=== PATIENT | male | born 1955 | race African-American/Black ===

== ENCOUNTER 2017-05-29 11:42 | Inpatient (IN) | payer OTHER ==
[~2017-05-29] VITALS: Ht 175.3 cm; Wt 88.3 kg
[2017-05-29] VITALS (8 sets, daily range): BP systolic 98–156; BP diastolic 52–78; PULSE 93–141; RESP 16–26; TEMP 98–102.6; O2SAT 95–98
[~2017-05-29 11:42] MED LIST: GLUCTAB PO; HYDR12.57 PO; LEVO.025 PO; LISI-360 PO; TRAM50TA PO
[2017-05-29] MEDS ORDERED: SODIUM CHLOR 0.9% 1000 ML INJ 1,000 ML IV ONE ×2 (12:02→14:00)
[2017-05-29] MEDS ORDERED: METF-382 PO (12:04)
[2017-05-29] MEDS ORDERED: LISI10TA3 PO (12:04)
[2017-05-29] MEDS ORDERED: GABA300C5 PO (12:04)
[2017-05-29] MEDS ORDERED: AZIT500T2 PO (12:04)
[2017-05-29] MEDS ORDERED: NAPR500T2 PO (12:04)
[2017-05-29] MEDS ORDERED: HYDR12.56 PO (12:04)
[2017-05-29] MEDS ORDERED: OSEL75 PO (12:04)
[2017-05-29] MEDS ORDERED: ACETAMINOPHEN 325 MG TAB PO ONE ×2 (12:15→14:45)
--- NOTE | 2017-05-29 12:38 | RADRPT ---
EXAM DATE/TIME: 05/29/2017 12:12 [facility] COMPARISON: No previous studies available for comparison. INDICATIONS : Fever,short of breath for 1 week MEDICAL HISTORY : diabetic SURGICAL HISTORY : None. ENCOUNTER: Initial ACUITY: 1 week PAIN SCORE: 0/10 LOCATION: Bilateral chest FINDINGS: A single view of the chest demonstrates the lungs to be symmetrically aerated without evidence of mas s, infiltrate or effusion. The cardiomediastinal contours are unremarkable. Spurs are seen in the th oracic spine. CONCLUSION: No acute disease. Ghassan Pearson MD on May 29, 2017 at 12:35 Board Certified Radiologist. This report was verified electronically.
[2017-05-29 12:46] LABS: AUTOMATED NEUTROPHIL # 6.6 TH/MM3 (1.8-7.7); BASOPHIL % 0.2 % (0.0-2.0); EOSINOPHIL % 0.1 % (0.0-4.0); HEMATOCRIT 36.8 % (39.0-51.0); HEMOGLOBIN 12.6 GM/DL (13.0-17.0); LYMPH % 3.7 % (9.0-44.0); LYMPHOCYTE # 0.3 TH/MM3 (1.0-4.8); MEAN CELL VOLUME 95.1 FL (80.0-100.0); MEAN CORPUSCULAR HEMOGLOBIN 32.6 PG (27.0-34.0); MEAN CORPUSCULAR HGB CONC 34.3 % (32.0-36.0); MEAN PLATELET VOLUME 10.4 FL (7.0-11.0); MONOCYTE # 0.1 TH/MM3 (0-0.9); PLATELET COUNT 143 TH/MM3 (150-450); RED BLOOD COUNT 3.87 MIL/MM3 (4.50-5.90); RED CELL DISTRIBUTION WIDTH 13.7 % (11.6-17.2); WHITE BLOOD COUNT 6.9 TH/MM3 (4.0-11.0)
[2017-05-29 12:54] LABS: LACTIC ACID SEPSIS PROTOCOL 3.8 mmol/L (0.4-2.0)
--- NOTE | 2017-05-29 13:02 | RADRPT ---
EXAM DATE/TIME: 05/29/2017 12:44 [facility] COMPARISON: No previous studies available for comparison. INDICATIONS : Altered mental status. RADIATION DOSE: 36.25 CTDIvol (mGy) MEDICAL HISTORY : Hypertension. Diabetes mellitus type 2. SURGICAL HISTORY : None. ENCOUNTER: Initial ACUITY: 1 day PAIN SCALE: 0/10 LOCATION: cranial TECHNIQUE: Multiple contiguous axial images were obtained of the head. Using automated exposure control and adj ustment of the mA and/or kV according to patient size, radiation dose was kept as low as reasonably a chievable to obtain optimal diagnostic quality images. DICOM format image data is available electro nically for review and comparison. FINDINGS: CEREBRUM: The ventricles and cortical sulci are widened. No evidence of midline shift, mass lesion, hemorrhage or acute infarction. No extra-axial fluid collections are seen. POSTERIOR FOSSA: The cerebellum and brainstem are intact. The 4th ventricle is midline. The cerebellopontine angle i s unremarkable. EXTRACRANIAL: The visualized portion of the orbits is intact. SKULL: The calvaria is intact. No evidence of skull fracture. CONCLUSION: 1. No acute intracranial abnormality is seen. 2. Age-related atrophy. Ghassan Pearson MD on May 29, 2017 at 12:59 Board Certified Radiologist. This report was verified electronically.
[2017-05-29 13:03] LABS: INTERNATIONAL NORMALIZED RATIO 1.3 RATIO; PROTHROMBIN TIME - PATIENT 13.4 SEC (9.8-11.6)
[2017-05-29 13:05] LABS: ALBUMIN 2.2 GM/DL (3.4-5.0); AST (GOT) 49 U/L (15-37); BICARBONATE 22.8 MEQ/L (21.0-32.0); BLOOD UREA NITROGEN 35 MG/DL (7-18); CALCIUM 10.1 MG/DL (8.5-10.1); CHLORIDE 93 MEQ/L (98-107); CREATININE 1.56 MG/DL (0.60-1.30); GLOMERULAR FILTRATION RATE 55 ML/MIN (>89); SODIUM (NA) 128 MEQ/L (136-145)
[2017-05-29 13:19] LABS: ALKALINE PHOSPHATASE 219 U/L (45-117); ALT (GPT) 24 U/L (12-78); TOTAL BILIRUBIN ADULT 1.3 MG/DL (0.2-1.0); TOTAL PROTEIN 8.6 GM/DL (6.4-8.2); TROPONIN I LESS THAN 0.02 NG/ML (0.02-0.05)
[2017-05-29] MEDS ORDERED: CEFEPIME INJ 1,000 MG in SODIUM CHLORIDE 0.9% INJ 100 ML IV ONE (13:30)
[2017-05-29] MEDS ORDERED: VANCOMYCIN INJ 1,000 MG in SODIUM CHLOR 0.9% 250 ML INJ 250 ML IV ONE (13:30)
[2017-05-29 13:47] LABS: GLUCOSE,RANDOM 526 MG/DL (74-106)
[2017-05-29 14:45] LABS: BACTERIA, URINE RARE /hpf; BILIRUBIN, URINE NEG (NEG); BLOOD, URINE NEG (NEG); GLUCOSE,URINE 1000 mg/dL (NEG); KETONE, URINE 10 mg/dL (NEG); NITRITE,URINE NEG (NEG); URINE COLOR YELLOW (YELLW/STRAW); URINE LEUKOCYTE ESTERASE TRACE (NEG)
[2017-05-29] MEDS ORDERED: KETOROLAC TROMETHAMINE 30 MG/ML (IVP) VIAL IV PUSH ONE (14:45)
[2017-05-29] MEDS ORDERED: INSULIN HUMAN REGULAR 1,000 UNITS/10 ML VIAL IV PUSH ONE (15:00)
--- NOTE | 2017-05-29 15:16 | PD ---
HPI Chief Complaint: Fever Time Seen by Provider: 12:02 Travel History International Travel<30 days: No Contact w/Intl Traveler<30days: No Traveled to known affect area: No History of Present Illness HPI Patient is a 61 year old male who is brought in by EMS due to altered mental status. Per EMS, patient was diagnosed with the flu and was started on Tamiflu and azithromycin by his primary physician earlier in the week. They state that the has been trying to get him to go back to the doctor or to the emergency department for a few days, but he kept refusing until today when he could not refuse. Patient is a diabetic, it is unclear if he has been taking any of his medications. He provides no history. [facility] Past Medical History Diabetes: Yes Patient Takes Glucophage: No Diminished Hearing: No Hypertension: Yes Tetanus Vaccination: > 5 Years Influenza Vaccination: Yes Past Surgical History Surgical History: No Previous Surgery Social History Alcohol Use: Yes (2 BEERS DAILY) Tobacco Use: No Substance Use: No Allergies-Medications (Allergen,Severity, Reaction): Coded Allergies: aspirin (Unverified Allergy, Unknown, 05/29/17) Reported Meds & Prescriptions Reported Meds & Active Scripts Active Reported Tamiflu (Oseltamivir Phosphate) 75 Mg Cap 75 Mg PO BID Azithromycin 500 Mg Tab 500 Mg PO DAILY Gabapentin 300 Mg Cap 300 Mg PO HS Lisinopril 10 Mg Tab 10 Mg PO DAILY Hydrochlorothiazide 12.5 Mg Tab 12.5 Mg PO BID Naproxen 500 Mg Tab 500 Mg PO BID Metformin ER (Metformin HCl) 1,000 Mg Natalia 1,000 Mg PO BID With evening meal Review of Systems ROS Limitations: Clinical Condition, Altered Mental Status Physical Exam Narrative GENERAL: Awake and alert, but not answering questions. SKIN: Focused skin assessment warm/dry. No wounds or signs of infection. HEAD: Atraumatic. Normocephalic. EYES: Pupils equal and round. No scleral icterus. No injection or drainage. ENT: Thrush present on the tongue. Mucous membranes are dry. NECK: Trachea midline. No JVD. CARDIOVASCULAR: Tachycardia. No murmur appreciated. RESPIRATORY: No accessory muscle use. Clear to auscultation. Breath sounds equal bilaterally. GASTROINTESTINAL: Abdomen soft, non-tender, nondistended. MUSCULOSKELETAL: No obvious deformities. No clubbing. No cyanosis. No edema. NEUROLOGICAL: Awake and alert. No obvious cranial nerve deficits. Motor grossly within normal limits. Data Data Last Documented VS Vital Signs Date Time Temp Pulse Resp B/P (MAP) Pulse Ox O2 Delivery O2 Flow Rate FiO2 05/29/17 14:27 101.2 125 22 102/72 (82) 98 Room Air Orders Orders Sepsis Workup Initiated (05/29/17 ) Electrocardiogram (05/29/17 12:02) Complete Blood Count With Diff (05/29/17 12:02) Comprehensive Metabolic Panel (05/29/17 12:02) Prothrombin Time / Inr (Pt) (05/29/17 12:02) Act Partial Throm Time (Ptt) (05/29/17 12:02) Lactic Acid Sepsis Protocol (05/29/17 12:02) Lipase (05/29/17 12:02) Troponin I (05/29/17 12:02) Urinalysis - C+S If Indicated (05/29/17 12:02) Blood Culture (05/29/17 12:02) Chest, Single Ap (05/29/17 12:02) Blood Glucose (05/29/17 12:02) Ecg Monitoring (05/29/17 12:02) Iv Access Insert/Monitor (05/29/17 12:02) Cath For Specimen (05/29/17 12:02) Oximetry (05/29/17 12:02) Oxygen Administration (05/29/17 12:02) Acetaminophen (Tylenol) (05/29/17 12:15) Ct Brain W/O Iv Contrast(Rout) (05/29/17 12:02) Sodium Chlor 0.9% 1000 Ml Inj (Ns 1000 M (05/29/17 12:02) Beta Hydroxybutyrate (Acetone) (05/29/17 12:02) Blood Gas Venous (Vbg) (05/29/17 12:02) Cefepime Inj (Maxipime Inj) (05/29/17 13:30) Vancomycin Inj (Vancomycin Inj) (05/29/17 13:30) Sodium Chlor 0.9% 1000 Ml Inj (Ns 1000 M (05/29/17 14:00) Acetaminophen (Tylenol) (05/29/17 14:45) Ketorolac Inj (Toradol Inj) (05/29/17 14:45) Urinary Catheter Insert/Apply (05/29/17 14:41) Insulin Human Regular Inj (Novolin R Inj (05/29/17 15:00) Urine Culture (05/29/17 14:30) Lactic Acid Sepsis Protocol (05/29/17 14:56) Labs Laboratory Tests Test 05/29/17 12:15 05/29/17 12:20 05/29/17 14:30 05/29/17 14:40 Blood Gas Puncture Site LINE Blood Gas Patient Temperature 98.6 Venous Blood pH 7.40 Venous Blood Partial Pressure CO2 39 mmHg Venous Blood Partial Pressure O2 26 mmHg Venous Blood HCO3 24 mmol/L Venous Blood Oxygen Saturation 41 % Venous Blood Oxygen Content 6.7 Vol % Venous Blood Base Excess -0.4 mmol/L Blood Gas Inspired Oxygen 21 % White Blood Count 6.9 TH/MM3 Red Blood Count 3.87 MIL/MM3 Hemoglobin 12.6 GM/DL Hematocrit 36.8 % Mean Corpuscular Volume 95.1 FL Mean Corpuscular Hemoglobin 32.6 PG Mean Corpuscular Hemoglobin Concent 34.3 % Red Cell Distribution Width 13.7 % Platelet Count 143 TH/MM3 Mean Platelet Volume 10.4 FL Neutrophils (%) (Auto) 95.0 % Lymphocytes (%) (Auto) 3.7 % Monocytes (%) (Auto) 1.0 % Eosinophils (%) (Auto) 0.1 % Basophils (%) (Auto) 0.2 % Neutrophils # (Auto) 6.6 TH/MM3 Lymphocytes # (Auto) 0.3 TH/MM3 Monocytes # (Auto) 0.1 TH/MM3 Eosinophils # (Auto) 0.0 TH/MM3 Basophils # (Auto) 0.0 TH/MM3 CBC Comment DIFF FINAL Differential Comment Prothrombin Time 13.4 SEC Prothromb Time International Ratio 1.3 RATIO Activated Partial Thromboplast Time 23.6 SEC Blood Urea Nitrogen 35 MG/DL Creatinine 1.56 MG/DL Random Glucose 526 MG/DL Total Protein 8.6 GM/DL Albumin 2.2 GM/DL Calcium Level 10.1 MG/DL Alkaline Phosphatase 219 U/L Aspartate Amino Transf (AST/SGOT) 49 U/L Alanine Aminotransferase (ALT/SGPT) 24 U/L Total Bilirubin 1.3 MG/DL Sodium Level 128 MEQ/L Potassium Level 5.7 MEQ/L Chloride Level 93 MEQ/L Carbon Dioxide Level 22.8 MEQ/L Anion Gap 12 MEQ/L Estimat Glomerular Filtration Rate 55 ML/MIN Lactic Acid Level 3.8 mmol/L Troponin I LESS THAN 0.02 NG/ML Lipase 134 U/L B-Hydroxybutyrate 3.33 MMOL/L Urine Color YELLOW Urine Turbidity CLEAR Urine pH 5.0 Urine Specific Gill 1.021 Urine Protein NEG mg/dL Urine Glucose (UA) 1000 mg/dL Urine Ketones 10 mg/dL Urine Occult Blood NEG Urine Nitrite NEG Urine Bilirubin NEG Urine Urobilinogen LESS THAN 2.0 MG/DL Urine Leukocyte Esterase TRACE Urine WBC 9 /hpf Urine Bacteria RARE /hpf Microscopic Urinalysis Comment CATH-CULTURE IND MDM Medical Decision Making Medical Screen Exam Complete: Yes Emergency Medical Condition: Yes Medical Record Reviewed: Yes Interpretation(s) ECG shows sinus tachycardia at a rate of 139, no ST elevation or depression, normal intervals Differential Diagnosis Sepsis versus pneumonia versus UTI versus DKA versus HHS Narrative Course Patient is a 61-year-old male who comes in by EMS due to altered mental status. IV established, labs sent. Patient given IV fluids. 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 CT head performed shows no acute abnormalities. Chest x-ray shows no acute abnormalities. Last [address] 05/29/17 1202 Signed Impressions: Service Date/Time: Monday, May 29, 2017 12:44 - CONCLUSION: 1. No acute intracranial abnormality is seen. 2. Age-related atrophy. Ghassan Pearson MD Chest X-Ray 05/29/17 1202 Signed Impressions: Service Date/Time: Monday, May 29, 2017 12:12 - CONCLUSION: No acute disease. Ghassan Pearson MD Patient covered broadly with cefepime and vancomycin. Labs concerning for a blood glucose of 526. Lactic acid is 3.8. Urinalysis is positive for bacteria. Patient did improve with fluids, his tachycardia improved and he became a little more alert. He is complaining of pain to his tongue due to the thrush and does admit he has not been taking his medications. He will be admitted for further management. Diagnosis Primary Impression: Sepsis Qualified Codes: A41.9 - Sepsis, unspecified organism Additional Impressions: Altered mental status Qualified Codes: R41.0 - Disorientation, unspecified Hyperglycemia Thrush Admitting Information Admitting Physician Requests: Admit Faby Garcia MD May 29, 2017 15:16
[2017-05-29] MEDS ORDERED: MORPHINE SULFATE 2 MG/ML INJ IV PUSH ONE (15:45)
[2017-05-29] MEDS ORDERED: MORPHINE SULFATE 2 MG/ML INJ IV PUSH PRN (18:15)
[2017-05-29] MEDS ORDERED: LACTULOSE SYRUP 20 GM/30 ML CUP PO PRN (18:15)
[2017-05-29] MEDS ORDERED: GLUCAGON 1 MG/ML VIAL OTHER PRN (18:15)
[2017-05-29] MEDS ORDERED: ACETAMINOPHEN 325 MG TAB PO PRN ×2 (18:15)
[2017-05-29] MEDS ORDERED: oxyCODONE/ACETAMINOPHEN 10 MG/325 MG TAB PO PRN (18:15)
[2017-05-29] MEDS ORDERED: RESP: ALBUTEROL 2.5 MG/IPRATROPIUM 0.5 MG NEB (PRN) NEB (18:15)
[2017-05-29] MEDS ORDERED: METOCLOPRAMIDE HCL 10 MG/2 ML VIAL IV PUSH PRN (18:15)
[2017-05-29] MEDS ORDERED: BISACODYL 10 MG SUPP RECTAL PRN (18:15)
[2017-05-29] MEDS ORDERED: cloNIDine HCL 0.1 MG TAB PO PRN (18:15)
[2017-05-29] MEDS ORDERED: SODIUM CHLORIDE 0.9% FLUSH 10 ML FLUSH IV FLUSH PRN (18:15)
[2017-05-29] MEDS ORDERED: MAGNESIUM HYDROXIDE SUSP 30 ML CUP PO PRN (18:15)
[2017-05-29] MEDS ORDERED: oxyCODONE/ACETAMINOPHEN 5 MG/325 MG TAB PO PRN (18:15)
[2017-05-29] MEDS ORDERED: DEXTROSE 50% IN WATER 50 ML VIAL(D50) IV PUSH PRN (18:15)
[2017-05-29] MEDS ORDERED: ONDANSETRON HCL 4 MG/2 ML VIAL IVP PRN (18:15)
[2017-05-29] MEDS ORDERED: NALOXONE HCL 0.4 MG/ML AMP IV PUSH PRN (18:15)
[2017-05-29] MEDS ORDERED: ZOLPIDEM TARTRATE 5 MG TAB PO PRN (18:15)
[2017-05-29] MEDS ORDERED: SENNOSIDES 8.6 MG TAB PO PRN (18:15)
[2017-05-29] MEDS ORDERED: Vancomycin Consult Pharmacy 1 EA OTHER SCH (18:15)
--- NOTE | 2017-05-29 18:27 | HHI.HP ---
[facility] Service [facility] Hospitalists Primary Care Physician Non-Staff Admission Diagnosis Sepsis, AMS, Hyperglycemia Diagnoses: Chief Complaint: Fevers Travel History International Travel<30 Days: No Contact w/Intl Traveler <30 Da: No Traveled to Known Affected Are: No Sepsis Criteria SIRS Criteria (2 or more): Temp > 100.9 or < 96.8 Sepsis Criteria (SIRS+source): Infect source susp/known (flu/pneumonia) Severe Sepsis (+one): Lactate >2 Criteria Outcome: Meets sepsis criteria History of Present Illness Patient is a 61-year-old gentleman who is brought in by EMS due to altered mental status. Patient per EMS was diagnosed with the flu last week and was started on Tamiflu and azithromycin by his primary care physician last week. have been trying to get him to come back to the doctor or to the emergency department for the past few days. He is using until today when he could not refuse when he became altered. Patient is a diabetic. He is not very compliant with medications since he had an elevated blood sugar over 500 Patient will be admitted. Continued on cefepime and vancomycin and Tamiflu. Continue on his home medications will consult nutrition and resident care aid. We'll start patient on insulin and Levemir and will educate him on this issue We'll continue on Diflucan for the oral thrush Review of Systems ROS Limitations: Altered Mental Status Constitutional: COMPLAINS OF: Fatigue, Fever, Chills, DENIES: Diaphoretic episodes, Weight gain, Weight loss, Dizziness, Change in appetite Endocrine: DENIES: Heat/cold intolerance, Polydipsia, Polyuria, Polyphagia Eyes: DENIES: Blurred vision, Diplopia, Eye inflammation, Eye pain, Vision loss , Photosensitivity Ears, nose, mouth, throat: COMPLAINS OF: Oral lesions, DENIES: Tinnitus, Hearing loss, Vertigo, Nasal discharge, Throat pain, Hoarseness Respiratory: COMPLAINS OF: Cough, Sputum production, Shortness of breath, DENIES: Apneas, Snoring, Wheezing, Hemoptysis Cardiovascular: DENIES: Chest pain, Palpitations, Syncope, Dyspnea on Exertion Gastrointestinal: DENIES: Abdominal pain, Black stools, Bloody stools, Constipation Musculoskeletal: COMPLAINS OF: Muscle aches, DENIES: Joint pain, Stiffness, Joint Swelling, Back pain, Neck pain Integumentary: DENIES: Abnormal pigmentation, Nail changes, Pruritus, Rash Hematologic/lymphatic: DENIES: Bruising, Lymphadenopathy Immunologic/allergic: DENIES: Eczema, Urticaria Neurologic: DENIES: Abnormal gait, Headache, Localized weakness, Paresthesias, Seizures, Speech Problems Psychiatric: COMPLAINS OF: Confusion, DENIES: Anxiety, Mood changes, Depression , Hallucinations, Agitation, Suicidal Ideation, Homicidal Ideation Except as stated in HPI: all other systems reviewed are Neg Past Family Social History Past Medical History Diabetes mellitus Uncontrolled diabetes mellitus Malignant medical noncompliance Hypertension Diabetic neuropathy Past Surgical History Denies at this time limited due to him being slightly altered Reported Medications Reported Meds & Active Scripts Active Reported Tamiflu (Oseltamivir Phosphate) 75 Mg Cap 75 Mg PO BID Azithromycin 500 Mg Tab 500 Mg PO DAILY Gabapentin 300 Mg Cap 300 Mg PO HS Lisinopril 10 Mg Tab 10 Mg PO DAILY Hydrochlorothiazide 12.5 Mg Tab 12.5 Mg PO BID Naproxen 500 Mg Tab 500 Mg PO BID Metformin ER (Metformin HCl) 1,000 Mg Natalia 1,000 Mg PO BID With evening meal Allergies: Coded Allergies: aspirin (Unverified Allergy, Unknown, 05/29/17) Active Ordered Medications Current Medications Acetaminophen (Tylenol) 650 mg ONCE ONCE PO Last administered on 05/29/17at 12: 34; Start 05/29/17 at 12:15; Stop 05/29/17 at 12:16; Status DC Sodium Chloride 1,000 ml @ 1,000 mls/hr Q1H ONCE IV Last administered on at 12:34; Start 05/29/17 at 12:02; Stop 05/29/17 at 13:01; Status DC Cefepime HCl 1000 mg/Sodium Chloride 100 ml @ 200 mls/hr ONCE ONCE IV Last administered on 05/29/17at 14:32; Start 05/29/17 at 13:30; Stop 05/29/17 at 13:59 ; Status DC Vancomycin HCl 1000 mg/Sodium Chloride 250 ml @ 250 mls/hr ONCE ONCE IV Last administered on 05/29/17at 15:12; Start 05/29/17 at 13:30; Stop 05/29/17 at 14:29 ; Status DC Sodium Chloride 1,000 ml @ 999 mls/hr BOLUS ONCE IV Last administered on 05/29at 14:32; Start 05/29/17 at 14:00; Stop 05/29/17 at 15:00; Status DC Acetaminophen (Tylenol) 650 mg ONCE ONCE PO ; Start 05/29/17 at 14:45; Stop at 14:45; Status DC Ketorolac Tromethamine (Toradol Inj) 30 mg ONCE ONCE IV PUSH Last administered on 05/29/17at 15:12; Start 05/29/17 at 14:45; Stop 05/29/17 at 14:46 ; Status DC Insulin Human Regular (NovoLIN R INJ) 10 units ONCE ONCE IV PUSH Last administered on 05/29/17at 15:12; Start 05/29/17 at 15:00; Stop 05/29/17 at 15:01 ; Status DC Morphine Sulfate (Morphine Inj) 2 mg ONCE ONCE IV PUSH Last administered on at 17:00; Start 05/29/17 at 15:45; Stop 05/29/17 at 15:46; Status DC Azithromycin (Zithromax) 500 mg DAILY PO ; Start 05/29/17 at 18:15; Status UNV Gabapentin (Neurontin) 300 mg HS PO ; Start 05/29/17 at 21:00; Status UNV Hydrochlorothiazide (Microzide) 12.5 mg BID PO ; Start 05/29/17 at 21:00; Status UNV Lisinopril (Prinivil) 10 mg DAILY PO ; Start 05/29/17 at 18:15 Naproxen (Naprosyn) 500 mg BID PO ; Start 05/29/17 at 21:00 Oseltamivir Phosphate (Tamiflu) 75 mg BID PO ; Start 05/29/17 at 21:00 Metformin HCl (Glucophage) 1,000 mg BID PO ; Start 05/29/17 at 21:00 Dextrose (D50w (Vial) Inj) 50 ml UNSCH PRN IV PUSH HYPOGLYCEMIA-SEE COMMENTS; Start 05/29/17 at 18:15 Glucagon (Glucagon Inj) 1 mg UNSCH PRN OTHER HYPOGLYCEMIA-SEE COMMENTS; Start 05/29/17 at 18:15 Insulin Aspart (NovoLOG SUPPLEMENTAL SCALE) 1 ACHS SLIDING SCALE SQ ; Start at 21:00 Clonidine (Catapres) 0.1 mg Q4H PRN PO SBP>160, DBP>90; Start 05/29/17 at 18:15 Sodium Chloride 1,000 ml @ 100 mls/hr Q10H IV ; Start 05/29/17 at 18:10; Status UNV Sodium Chloride (NS Flush) 2 ml UNSCH PRN IV FLUSH FLUSH AFTER USING IV ACCESS ; Start 05/29/17 at 18:15; Status UNV Sodium Chloride (NS Flush) 2 ml BID IV FLUSH ; Start 05/29/17 at 21:00; Status UNV Acetaminophen (Tylenol) 650 mg Q4H PRN PO TEMP > 100.4; Start 05/29/17 at 18:15 ; Status UNV Ondansetron HCl (Zofran Inj) 4 mg Q6H PRN IVP NAUSEA OR VOMITING; Start at 18:15; Status UNV Metoclopramide HCl (Reglan Inj) 5 mg Q6H PRN IV PUSH NAUSEA OR VOMITING; Start 05/29/17 at 18:15; Status UNV Zolpidem Tartrate (Ambien) 5 mg HS PRN PO INSOMNIA; Start 05/29/17 at 18:15; Status UNV Enoxaparin Sodium (Lovenox Inj) 40 mg Q24H SQ ; Start 05/29/17 at 18:15; Status UNV Acetaminophen (Tylenol) 650 mg Q6H PRN PO PAIN SCALE 1 TO 2; Start 05/29/17 at 18:15; Status UNV Oxycodone/ Acetaminophen (Percocet 5-325 Mg) 1 tab Q6H PRN PO PAIN SCALE 3 TO 5; Start 05/29/17 at 18:15; Status UNV Oxycodone/ Acetaminophen (Percocet 10-325 Mg) 1 tab Q6H PRN PO PAIN SCALE 6 TO 10; Start 05/29/17 at 18:15; Status UNV Morphine Sulfate (Morphine Inj) 2 mg Q3H PRN IV PUSH Pain 3-5; if unable to take PO; Start 05/29/17 at 18:15; Status UNV Morphine Sulfate (Morphine Inj) 4 mg Q3H PRN IV PUSH Pain 6-10;if unable to take PO; Start 05/29/17 at 18:15; Status UNV Naloxone HCl (Narcan Inj) 0.4 mg UNSCH PRN IV PUSH SEE LABEL COMMENTS; Start at 18:15; Status UNV Senna/Docusate Sodium (Alma Delia-Colace) 1 tab BID PO ; Start 05/29/17 at 21:00; Status UNV Magnesium Hydroxide (Milk Of Magnesia Liq) 30 ml Q12H PRN PO Mild constipation ; Start 05/29/17 at 18:15; Status UNV Sennosides (Senokot) 17.2 mg Q12H PRN PO Moderate constipation; Start 05/29/17 at 18:15; Status UNV Bisacodyl (Dulcolax Supp) 10 mg DAILY PRN RECTAL SEVERE CONSITIPATION; Start at 18:15; Status UNV Lactulose (Lactulose Liq) 30 ml DAILY PRN PO SEVERE CONSITIPATION; Start at 18:15; Status UNV Fluconazole (Diflucan) 200 mg DAILY PO ; Start 05/29/17 at 18:15; Status UNV Nystatin (Mycostatin Liq) 5 ml QID SWISH-SWAL ; Start 05/29/17 at 21:00; Status UNV Insulin Detemir (Levemir Inj) 10 units BID SQ ; Start 05/29/17 at 21:00; Status UNV Family History Suspect hypertension and diabetes in the family is not a good historian at this time Social History Denies tobacco positive alcohol beer daily Denies any illicits Physical Exam Vital Signs Vital Signs Date Time Temp Pulse Resp B/P (MAP) Pulse Ox O2 Delivery O2 Flow Rate FiO2 05/29/17 16:55 108 26 102/58 (73) 98 Room Air 05/29/17 16:11 20 05/29/17 15:38 99.6 118 20 156/78 (104) 98 Room Air 05/29/17 14:27 101.2 125 22 102/72 (82) 98 Room Air 05/29/17 13:21 130 16 129/60 (83) 98 Room Air 05/29/17 11:53 102.6 141 16 131/59 (83) 96 Physical Exam GENERAL: This is a well-nourished, well-developed patient, in no apparent distress. Somewhat altered at the time of the exam SKIN: No rashes, ecchymoses or lesions. Cool and dry. HEAD: Atraumatic. Normocephalic. No temporal or scalp tenderness. EYES: Pupils equal round and reactive. Extraocular motions intact. No scleral icterus. No injection or drainage. ENT: Nose without bleeding, purulent drainage or septal hematoma. Throat without erythema, tonsillar hypertrophy or exudate. Uvula midline. Airway patent. Poor dentition oral thrush on tongue NECK: Trachea midline. No JVD or lymphadenopathy. Supple, nontender, no meningeal signs. CARDIOVASCULAR: Regular rate and rhythm without murmurs, gallops, or rubs. S1 and S2 no S3 or S4 RESPIRATORY: Clear to auscultation. Breath sounds equal bilaterally. No wheezes , rales, Few scattered rhonchi GASTROINTESTINAL: Abdomen soft, non-tender, nondistended. No hepato-splenomegaly , or palpable masses. No guarding. Obese MUSCULOSKELETAL: Extremities without clubbing, cyanosis, +1 lower extremity edema. No joint tenderness, effusion, or edema noted. No calf tenderness. Negative Homans sign bilaterally. NEUROLOGICAL: Awake and alert. Cranial nerves II through XII intact. Motor and sensory grossly within normal limits. Five out of 5 muscle strength in all muscle groups. Normal speech. Insight and judgment is limited Mood and behavior somewhat appropriate Laboratory Laboratory Tests Test 05/29/17 12:15 05/29/17 12:20 05/29/17 14:30 05/29/17 14:40 Blood Gas Puncture Site LINE Blood Gas Patient Temperature 98.6 Venous Blood pH 7.40 Venous Blood Partial Pressure CO2 39 Venous Blood Partial Pressure O2 26 Venous Blood HCO3 24 Venous Blood Oxygen Saturation 41 Venous Blood Oxygen Content 6.7 Venous Blood Base Excess -0.4 Blood Gas Inspired Oxygen 21 White Blood Count 6.9 Red Blood Count 3.87 Hemoglobin 12.6 Hematocrit 36.8 Mean Corpuscular Volume 95.1 Mean Corpuscular Hemoglobin 32.6 Mean Corpuscular Hemoglobin Concent 34.3 Red Cell Distribution Width 13.7 Platelet Count 143 Mean Platelet Volume 10.4 Neutrophils (%) (Auto) 95.0 Lymphocytes (%) (Auto) 3.7 Monocytes (%) (Auto) 1.0 Eosinophils (%) (Auto) 0.1 Basophils (%) (Auto) 0.2 Neutrophils # (Auto) 6.6 Lymphocytes # (Auto) 0.3 Monocytes # (Auto) 0.1 Eosinophils # (Auto) 0.0 Basophils # (Auto) 0.0 CBC Comment DIFF FINAL Differential Comment Prothrombin Time 13.4 Prothromb Time International Ratio 1.3 Activated Partial Thromboplast Time 23.6 Blood Urea Nitrogen 35 Creatinine 1.56 Random Glucose 526 Total Protein 8.6 Albumin 2.2 Calcium Level 10.1 Alkaline Phosphatase 219 Aspartate Amino Transf (AST/SGOT) 49 Alanine Aminotransferase (ALT/SGPT) 24 Total Bilirubin 1.3 Sodium Level 128 Potassium Level 5.7 Chloride Level 93 Carbon Dioxide Level 22.8 Anion Gap 12 Estimat Glomerular Filtration Rate 55 Lactic Acid Level 3.8 2.1 Troponin I LESS THAN 0.02 Lipase 134 B-Hydroxybutyrate 3.33 Urine Color YELLOW Urine Turbidity CLEAR Urine pH 5.0 Urine Specific [place] 1.021 Urine Protein NEG Urine Glucose (UA) 1000 Urine Ketones 10 Urine Occult Blood NEG Urine Nitrite NEG Urine Bilirubin NEG Urine Urobilinogen LESS THAN 2.0 Urine Leukocyte Esterase TRACE Urine WBC 9 Urine Bacteria RARE Microscopic Urinalysis Comment CATH-CULTURE IND Date/Time Source Procedure Growth Status 05/29/17 12:20 Blood Peripheral Aerobic Blood Culture Pending Received 05/29/17 12:20 Blood Peripheral Anaerobic Blood Culture Pending Received 05/29/17 14:30 Urine Catheterized Urine Urine Culture Pending Received Result Diagram: 05/29/17 1220 05/29/17 1220 Imaging Last Impressions Head CT 05/29/17 1202 Signed Impressions: Service Date/Time: Monday, May 29, 2017 12:44 - CONCLUSION: 1. No acute intracranial abnormality is seen. 2. Age-related atrophy. Ghassan Pearson MD Chest X-Ray 05/29/17 1202 Signed Impressions: Service Date/Time: Monday, May 29, 2017 12:12 - CONCLUSION: No acute disease. Ghassan Pearson MD Caprini VTE Risk Assessment Caprini VTE Risk Assessment: Mod/High Risk (score >= 2) Caprini Risk Assessment Model Point Value = 1 Point Value = 2 Point Value = 3 Point Value = 5 Age 41-60 Minor surgery BMI > 25 kg/m2 Swollen legs Varicose veins or History of unexplained or recurrent spontaneous Oral contraceptives or hormone replacement Sepsis (< 1 month) Serious lung disease, including pneumonia (< 1 month) Abnormal pulmonary function Acute myocardial infarction Congestive heart failure (< 1 month) History of inflammatory bowel disease Medical patient at bed rest Age 61-74 Arthroscopic surgery Major open surgery (> 45 min) Laparoscopic surgery (> 45 min) Malignancy Confined to bed (> 72 hours) Immobilizing plaster cast Central venous access Age >= 75 History of VTE Family history of VTE Factor V Leiden Prothrombin 00120A Lupus anticoagulant Anticardiolipin antibodies Elevated serum homocysteine Heparin-induced thrombocytopenia Other congenital or acquired thrombophilia Stroke (< 1 month) Elective arthroplasty Hip, pelvis, or leg fracture Acute spinal cord injury (< 1 month) Prophylaxis Regimen Total Risk Factor Score Risk Level Prophylaxis Regimen 0-1 Low Early ambulation 2 Moderate Order ONE of the following: *Sequential Compression Device (SCD) *Heparin 5000 units SQ BID 3-4 Higher Order ONE of the following medications: *Heparin 5000 units SQ TID *Enoxaparin/Lovenox 40 mg SQ daily (WT < 150 kg, CrCl > 30 mL/min) *Enoxaparin/Lovenox 30 mg SQ daily (WT < 150 kg, CrCl > 10-29 mL/min) *Enoxaparin/Lovenox 30 mg SQ BID (WT < 150 kg, CrCl > 30 mL/min) AND/OR *Sequential Compression Device (SCD) 5 or more Highest Order ONE of the following medications: *Heparin 5000 units SQ TID (Preferred with Epidurals) *Enoxaparin/Lovenox 40 mg SQ daily (WT < 150 kg, CrCl > 30 mL/min) *Enoxaparin/Lovenox 30 mg SQ daily (WT < 150 kg, CrCl > 10-29 mL/min) *Enoxaparin/Lovenox 30 mg SQ BID (WT < 150 kg, CrCl > 30 mL/min) AND *Sequential Compression Device (SCD) Assessment and Plan Assessment and Plan Altered mental status suspect secondary to flu and pneumonia continue on antibiotics with cefepime and Vanco and Tamiflu Continue on DuoNeb some Mucinex and incentive spirometry Hypertension continue on home medications Hyperkalemia continue on- fluids recheck labs Uncontrolled diabetes with noncompliance with diabetic diet and medications We'll get a hemoglobin A1c and continue on Levemir and metformin Continue on IV fluids Diabetic education Nutrition education for diabetes Thrush continue on Diflucan and nystatin swish and swallow Fevers and altered mental status continue on antibiotics Deconditioning continue with physical therapy and occupational therapy GI prophylaxis and DVT prophylaxis see orders Code Status Full code Discussed Condition With RN and patient and ER physician Physician Certification 2 Midnight Certification Type: Admission for Inpatient Services Order for Inpatient Services The services are ordered in accordance with Medicare regulations or non- Medicare payer requirements, as applicable. In the case of services not specified as inpatient-only, they are appropriately provided as inpatient services in accordance with the 2-midnight benchmark. Estimated LOS (days): 2 days is the estimated time the patient will need to remain in the hospital, assuming treatment plan goals are met and no additional complications. Post-Hospital Plan: Not yet determined Olvin Mazariegos DO May 29, 2017 18:27
[2017-05-29] MEDS ORDERED: MORPHINE SULFATE 4 MG/ML INJ IV PUSH PRN (18:30)
[2017-05-29] MEDS ORDERED: VANCOMYCIN INJ 1,500 MG in SODIUM CHLORID 0.9% 500 ML INJ 500 ML IV ONE (18:45)
[2017-05-29] MEDS ORDERED: AZITHROMYCIN 250 MG TAB PO SCH (18:45)
[2017-05-29] MEDS: SODIUM CHLOR 0.9% 1000 ML INJ 1,000 ML IV SCH (21:48)
[2017-05-29] MEDS ORDERED: ENALAPRILAT 1.25 MG/ML VIAL IV PUSH PRN (23:15)
[2017-05-29] MEDS: ENOXAPARIN SODIUM 40 MG/0.4 ML SYRINGE SQ SCH (23:21)
[2017-05-29] MEDS: INSULIN DETEMIR 100 UNITS/ML VIAL SQ SCH (23:21)
[2017-05-29] MEDS: INSULIN ASPART SUPPLEMENTAL SCALE SQ SCH (23:21)
[2017-05-29] MEDS: guaiFENesin E.R. 600 MG TAB PO SCH (23:37)
[2017-05-29] MEDS: FOLIC ACID 1 MG TAB PO SCH (23:37)
[2017-05-29] MEDS: MULTIVITAMIN TAB PO SCH (23:37)
[2017-05-29] MEDS: THIAMINE HCL 100 MG TAB PO SCH (23:37)
[2017-05-29] MEDS: GABAPENTIN 300 MG CAP PO SCH (23:37)
[2017-05-29] MEDS: metFORMIN HCL 500 MG TAB PO SCH (23:38)
[2017-05-29] MEDS: NAPROXEN 500 MG TAB PO SCH (23:38)
[2017-05-29] MEDS: HYDROCHLOROTHIAZIDE 12.5 MG CAP PO SCH (23:38)
[2017-05-29] MEDS: FLUCONAZOLE 200 MG TAB PO SCH (23:38)
[2017-05-29] MEDS: SODIUM CHLORIDE 0.9% FLUSH 10 ML FLUSH IV FLUSH SCH (23:39)
[2017-05-29] MEDS: LISINOPRIL 10 MG TAB PO SCH (23:44)
[2017-05-29] MEDS: DOCUSATE SODIUM 50 MG/SENNA 8.6 MG TAB PO SCH (23:56)
[2017-05-29] MEDS: NYSTATIN SUSP 500,000 U/5 ML CUP SWISH-SWAL SCH (23:56)
[2017-05-30] VITALS (11 sets, daily range): BP systolic 100–148; BP diastolic 57–86; PULSE 80–110; RESP 18–20; TEMP 97.4–98.5; O2SAT 94–100
[2017-05-30] MEDS ORDERED: AZITHROMYCIN INJ 500 MG in SODIUM CHLOR 0.9% 250 ML INJ 250 ML IV SCH ×2
[2017-05-30] MEDS: OSELTAMIVIR PHOSPHATE 75 MG CAP PO SCH ×2 (00:16→09:15)
[2017-05-30 02:22] LABS: TROPONIN I LESS THAN 0.02 NG/ML (0.02-0.05)
[2017-05-30] MEDS: CEFEPIME INJ 2,000 MG in SODIUM CHLORIDE 0.9% INJ 100 ML IV SCH ×2 (03:36→15:00)
[2017-05-30] MEDS: SODIUM CHLOR 0.9% 1000 ML INJ 1,000 ML IV SCH ×2 (03:36→14:00)
[2017-05-30] MEDS: INSULIN ASPART SUPPLEMENTAL SCALE SQ SCH ×4 (08:00→20:49)
[2017-05-30] MEDS: DOCUSATE SODIUM 50 MG/SENNA 8.6 MG TAB PO SCH ×2 (09:00→20:51)
[2017-05-30] MEDS: SODIUM CHLORIDE 0.9% FLUSH 10 ML FLUSH IV FLUSH SCH ×2 (09:00→20:51)
--- NOTE | 2017-05-30 09:03 | HHI.PR ---
Subjective Remarks This is a pleasant 61 y/o Male who was brought in due to AMS, he was diagnosed with Influenza last week and received treatment with Tamiflu and Azithromycin, he has DM II, non compliant with his medicines Blood sugar on admission over 500, admitted and started on Cefepime and Vancomycin And Tamiflu, Diflucan for oral thrush, Seen in his bedroom, discussed with nurse Miss Alcazar, ID specialist consult due to Gram Negative Bacteremia. Objective Vital Signs Date Time Temp Pulse Resp B/P (MAP) Pulse Ox O2 Delivery O2 Flow Rate FiO2 05/30/17 07:52 100 05/30/17 04:00 97.8 92 20 117/68 (84) 96 05/30/17 04:00 21 05/30/17 03:58 80 05/30/17 00:06 98 05/30/17 00:00 97.7 93 18 114/70 (85) 96 05/30/17 00:00 98.3 94 18 113/66 (82) 94 05/29/17 22:06 93 05/29/17 19:10 98.0 98 18 98/52 (67) 95 05/29/17 18:30 101 22 103/59 (74) 95 Room Air 05/29/17 16:55 108 26 102/58 (73) 98 Room Air 05/29/17 16:11 20 05/29/17 15:38 99.6 118 20 156/78 (104) 98 Room Air 05/29/17 14:27 101.2 125 22 102/72 (82) 98 Room Air 05/29/17 13:21 130 16 129/60 (83) 98 Room Air 05/29/17 11:53 102.6 141 16 131/59 (83) 96 I/O 05/29/17 05/29/17 05/29/17 05/30/17 05/30/17 05/30/17 07:00 15:00 23:00 07:00 15:00 23:00 Intake Total 2350 ml 1329 ml Output Total 1600 ml Balance 2350 ml -271 ml Intake IV Total 2350 ml 1329 ml Output Urine Total 1600 ml Result Diagram: 05/29/17 1220 05/29/17 1220 Imaging Last Impressions Head CT 05/29/17 1202 Signed Impressions: Service Date/Time: Monday, May 29, 2017 12:44 - CONCLUSION: 1. No acute intracranial abnormality is seen. 2. Age-related atrophy. Ghassan Pearson MD Chest X-Ray 05/29/17 1202 Signed Impressions: Service Date/Time: Monday, May 29, 2017 12:12 - CONCLUSION: No acute disease. Ghassan Pearson MD Procedures None Other Results Laboratory Tests Test 05/29/17 12:15 05/29/17 12:20 05/29/17 14:30 05/29/17 14:40 Blood Gas Puncture Site LINE Blood Gas Patient Temperature 98.6 Venous Blood pH 7.40 Venous Blood Partial Pressure CO2 39 mmHg Venous Blood Partial Pressure O2 26 mmHg Venous Blood HCO3 24 mmol/L Venous Blood Oxygen Saturation 41 % Venous Blood Oxygen Content 6.7 Vol % Venous Blood Base Excess -0.4 mmol/L Blood Gas Inspired Oxygen 21 % White Blood Count 6.9 TH/MM3 Red Blood Count 3.87 MIL/MM3 Hemoglobin 12.6 GM/DL Hematocrit 36.8 % Mean Corpuscular Volume 95.1 FL Mean Corpuscular Hemoglobin 32.6 PG Mean Corpuscular Hemoglobin Concent 34.3 % Red Cell Distribution Width 13.7 % Platelet Count 143 TH/MM3 Mean Platelet Volume 10.4 FL Neutrophils (%) (Auto) 95.0 % Lymphocytes (%) (Auto) 3.7 % Monocytes (%) (Auto) 1.0 % Eosinophils (%) (Auto) 0.1 % Basophils (%) (Auto) 0.2 % Neutrophils # (Auto) 6.6 TH/MM3 Lymphocytes # (Auto) 0.3 TH/MM3 Monocytes # (Auto) 0.1 TH/MM3 Eosinophils # (Auto) 0.0 TH/MM3 Basophils # (Auto) 0.0 TH/MM3 CBC Comment DIFF FINAL Differential Comment Prothrombin Time 13.4 SEC Prothromb Time International Ratio 1.3 RATIO Activated Partial Thromboplast Time 23.6 SEC Blood Urea Nitrogen 35 MG/DL Creatinine 1.56 MG/DL Random Glucose 526 MG/DL Total Protein 8.6 GM/DL Albumin 2.2 GM/DL Calcium Level 10.1 MG/DL Alkaline Phosphatase 219 U/L Aspartate Amino Transf (AST/SGOT) 49 U/L Alanine Aminotransferase (ALT/SGPT) 24 U/L Total Bilirubin 1.3 MG/DL Sodium Level 128 MEQ/L Potassium Level 5.7 MEQ/L Chloride Level 93 MEQ/L Carbon Dioxide Level 22.8 MEQ/L Anion Gap 12 MEQ/L Estimat Glomerular Filtration Rate 55 ML/MIN Lipase 134 U/L B-Hydroxybutyrate 3.33 MMOL/L Urine Color YELLOW Urine Turbidity CLEAR Urine pH 5.0 Urine Specific [place] 1.021 Urine Protein NEG mg/dL Urine Glucose (UA) 1000 mg/dL Urine Ketones 10 mg/dL Urine Occult Blood NEG Urine Nitrite NEG Urine Bilirubin NEG Urine Urobilinogen LESS THAN 2.0 MG/DL Urine Leukocyte Esterase TRACE Urine WBC 9 /hpf Urine Bacteria RARE /hpf Microscopic Urinalysis Comment CATH-CULTURE IND Lactic Acid Level 2.1 mmol/L Test 05/30/17 00:20 Total Creatine Kinase 44 U/L Troponin I LESS THAN 0.02 NG/ML Objective Remarks GENERAL: No acute distress. SKIN: No rashes, ecchymoses or lesions. Cool and dry. HEAD: Atraumatic. Normocephalic. No temporal or scalp tenderness. EYES: Pupils equal round and reactive. Extraocular motions intact. No scleral icterus. No injection or drainage. ENT: Nose without bleeding, purulent drainage or septal hematoma. Throat without erythema, tonsillar hypertrophy or exudate. Uvula midline. Airway patent. Poor dentition oral thrush on tongue NECK: Trachea midline. No JVD or lymphadenopathy. Supple, nontender, no meningeal signs. CARDIOVASCULAR: Regular rate and rhythm without murmurs, gallops, or rubs. S1 and S2 no S3 or S4 RESPIRATORY: Clear to auscultation. Breath sounds equal bilaterally. No wheezes , rales, Few scattered rhonchi GASTROINTESTINAL: Abdomen soft, non-tender, nondistended. No hepato-splenomegaly , or palpable masses. No guarding. Obese MUSCULOSKELETAL: Extremities without clubbing, cyanosis, +1 lower extremity edema. NEUROLOGICAL: Awake and alert. Medications and IVs Current Medications Medications (Trade) Dose Ordered Sig/Jackie Route Start Time Stop Time Status Last Admin (Neurontin) 300 mg HS PO 05/29/17 21:00 05/29/17 23:37 (Microzide) 12.5 mg BID PO 05/29/17 21:00 05/29/17 23:38 (Prinivil) 10 mg DAILY PO 05/29/17 18:15 05/29/17 23:44 (Naprosyn) 500 mg BID PO 05/29/17 21:00 05/29/17 23:38 (Tamiflu) 75 mg BID PO 05/29/17 21:00 05/30/17 00:16 (Glucophage) 1,000 mg BID PO 05/29/17 21:00 05/29/17 23:38 (D50w (Vial) Inj) 50 ml UNSCH PRN IV PUSH 05/29/17 18:15 (Glucagon Inj) 1 mg UNSCH PRN OTHER 05/29/17 18:15 (NovoLOG SUPPLEMENTAL SCALE) 1 ACHS SLIDING SCALE SQ 05/29/17 21:00 05/29/17 23:21 (Catapres) 0.1 mg Q4H PRN PO 05/29/17 18:15 Sodium Chloride 1,000 ml @ 100 mls/hr Q10H IV 05/29/17 18:00 05/29/17 21:48 (NS Flush) 2 ml UNSCH PRN IV FLUSH 05/29/17 18:15 (NS Flush) 2 ml BID IV FLUSH 05/29/17 21:00 05/29/17 23:39 (Tylenol) 650 mg Q4H PRN PO 05/29/17 18:15 (Zofran Inj) 4 mg Q6H PRN IVP 05/29/17 18:15 (Reglan Inj) 5 mg Q6H PRN IV PUSH 05/29/17 18:15 (Ambien) 5 mg HS PRN PO 05/29/17 18:15 (Lovenox Inj) 40 mg Q24H SQ 05/29/17 20:00 05/29/17 23:21 (Tylenol) 650 mg Q6H PRN PO 05/29/17 18:15 (Percocet 5-325 Mg) 1 tab Q6H PRN PO 05/29/17 18:15 (Percocet 10-325 Mg) 1 tab Q6H PRN PO 05/29/17 18:15 (Morphine Inj) 2 mg Q3H PRN IV PUSH 05/29/17 18:15 (Morphine Inj) 4 mg Q3H PRN IV PUSH 05/29/17 18:30 (Narcan Inj) 0.4 mg UNSCH PRN IV PUSH 05/29/17 18:15 (Alma Delia-Colace) 1 tab BID PO 05/29/17 21:00 05/29/17 23:56 (Milk Of Magnesia Liq) 30 ml Q12H PRN PO 05/29/17 18:15 (Senokot) 17.2 mg Q12H PRN PO 05/29/17 18:15 (Dulcolax Supp) 10 mg DAILY PRN RECTAL 05/29/17 18:15 (Lactulose Liq) 30 ml DAILY PRN PO 05/29/17 18:15 (Diflucan) 200 mg DAILY PO 05/29/17 18:30 05/29/17 23:38 (Mycostatin Liq) 5 ml QID SWISH-SWAL 05/29/17 21:00 05/29/17 23:56 (Levemir Inj) 10 units BID SQ 05/29/17 21:00 05/29/17 23:21 Cefepime HCl 2000 mg/Sodium Chloride 100 ml @ 200 mls/hr Q12H IV 05/30/17 03:00 05/30/17 03:36 Pharmacy Profile Note 0 ml @ 0 mls/hr UNSCH OTHER 05/29/17 18:15 (Duoneb Neb) 1 ampule Q4HR NEB PRN NEB 05/29/17 18:15 (Mucinex Er) 600 mg BID PO 05/29/17 21:00 05/29/17 23:37 (Theragran) 1 tab DAILY PO 05/29/17 18:30 05/29/17 23:37 (Vitamin B1) 100 mg DAILY PO 05/29/17 18:30 05/29/17 23:37 (Folate) 1 mg DAILY PO 05/29/17 18:30 05/29/17 23:37 Azithromycin 500 mg/Sodium Chloride 250 ml @ 250 mls/hr Q24H IV 05/30/17 00:00 05/29/17 23:45 (Vasotec Inj) 1.25 mg Q6H PRN IV PUSH 05/29/17 23:15 Vancomycin HCl 2000 mg/Sodium Chloride 520 ml @ 250 mls/hr Q18H IV 05/30/17 21:00 Miscellaneous Information SPECIFIC LAB TO BE DRAWN:VANCOMYCIN TROUGH DATE TO... ONCE ONCE .XX 06/01/17 08:45 06/01/17 08:46 A/P Assessment and Plan Altered mental status suspect secondary to flu and pneumonia continue on antibiotics with cefepime and Vanco and Tamiflu Continue on DuoNeb some Mucinex and incentive spirometry Gram Negative Bacteremia on cefepime and Vancomycin ID specialist consult. Hypertension controlled. Hyperkalemia improved Uncontrolled diabetes type II with medical Non compliance, Hemoglobin A1C, IV fluids, Diabetic Education ongoing at this time Discontinued Metformin. Thrush continue on Diflucan and nystatin swish and swallow Fevers and altered mental Improved with IV fluids and antibiotics. Deconditioning continue with physical therapy and occupational therapy GI prophylaxis and DVT prophylaxis see orders Code Status Full code Discussed Condition With patient, Nurse Miss Alcazar and Diabetes Education. Discharge Planning Once cleared by ID specialist. Justin Patel MD May 30, 2017 09:03
[2017-05-30] MEDS: NAPROXEN 500 MG TAB PO SCH ×2 (09:15→20:50)
[2017-05-30] MEDS: THIAMINE HCL 100 MG TAB PO SCH (09:15)
[2017-05-30] MEDS: metFORMIN HCL 500 MG TAB PO SCH (09:15)
[2017-05-30] MEDS: LISINOPRIL 10 MG TAB PO SCH (09:16)
[2017-05-30] MEDS: guaiFENesin E.R. 600 MG TAB PO SCH ×2 (09:16→20:50)
[2017-05-30] MEDS: NYSTATIN SUSP 500,000 U/5 ML CUP SWISH-SWAL SCH ×4 (09:16→20:51)
[2017-05-30] MEDS: MULTIVITAMIN TAB PO SCH (09:16)
[2017-05-30] MEDS: HYDROCHLOROTHIAZIDE 12.5 MG CAP PO SCH ×2 (09:16→20:51)
[2017-05-30] MEDS: FLUCONAZOLE 200 MG TAB PO SCH (09:16)
[2017-05-30] MEDS: FOLIC ACID 1 MG TAB PO SCH (09:16)
[2017-05-30] MEDS: INSULIN DETEMIR 100 UNITS/ML VIAL SQ SCH ×2 (09:17→20:50)
[2017-05-30 10:05] LABS: BASOPHIL % 0.3 % (0.0-2.0); EOSINOPHIL # 0.1 TH/MM3 (0-0.4); EOSINOPHIL % 0.6 % (0.0-4.0); HEMATOCRIT 35.1 % (39.0-51.0); LYMPH % 8.1 % (9.0-44.0); LYMPHOCYTE # 0.8 TH/MM3 (1.0-4.8); MEAN CELL VOLUME 94.7 FL (80.0-100.0); MEAN CORPUSCULAR HEMOGLOBIN 32.4 PG (27.0-34.0); MEAN CORPUSCULAR HGB CONC 34.2 % (32.0-36.0); MEAN PLATELET VOLUME 10.1 FL (7.0-11.0); MONO % 2.8 % (0.0-8.0); MONOCYTE # 0.3 TH/MM3 (0-0.9); NEUT % 88.2 % (16.0-70.0); PLATELET COUNT 135 TH/MM3 (150-450); RED BLOOD COUNT 3.71 MIL/MM3 (4.50-5.90); RED CELL DISTRIBUTION WIDTH 13.8 % (11.6-17.2); WHITE BLOOD COUNT 10.2 TH/MM3 (4.0-11.0)
[2017-05-30 10:35] LABS: AST (GOT) 28 U/L (15-37); BICARBONATE 27.6 MEQ/L (21.0-32.0); BLOOD UREA NITROGEN 29 MG/DL (7-18); CALCIUM 9.2 MG/DL (8.5-10.1); CHLORIDE 105 MEQ/L (98-107); CREATININE 0.97 MG/DL (0.60-1.30); GLOMERULAR FILTRATION RATE 96 ML/MIN (>89); GLUCOSE,RANDOM 126 MG/DL (74-106); MAGNESIUM 1.8 MG/DL (1.5-2.5); SODIUM (NA) 140 MEQ/L (136-145)
[2017-05-30 10:41] LABS: ALKALINE PHOSPHATASE 135 U/L (45-117); ALT (GPT) 20 U/L (12-78); FREE T4 1.26 NG/DL (0.76-1.46); TOTAL BILIRUBIN ADULT 1.3 MG/DL (0.2-1.0); TOTAL PROTEIN 7.4 GM/DL (6.4-8.2); TROPONIN I LESS THAN 0.02 NG/ML (0.02-0.05)
--- NOTE | 2017-05-30 14:42 | PD.ID.CON ---
History of Present Illness Service Infectious disease Consult Requested By Dr. Mazariegos Reason for Consult Evaluation and management of gram-negative bacteremia Primary Care Physician Non-Staff Diagnoses: History of Present Illness Mr. 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 With this background patient presents to the emergency department due to altered mental status. Reportedly she was diagnosed with flu last week and was started on Tamiflu and azithromycin by his primary care physician. Patient's reports to me that she fell that he continued to decline despite these medications and she has been trying to bring him back to the hospital for the last few days. Patient reportedly refused until the day of admission when he became altered and was brought to the hospital. Patient's reports that he is not very compliant with his medications. Patient was found to have blood sugar in the 500s on admission. 61-year-old gentleman who is brought in by EMS due to altered mental status. Patient per EMS was diagnosed with the flu last week and was started on Tamiflu and azithromycin by his primary care physician last week. have been trying to get him to come back to the doctor or to the emergency department for the past few days. He is using until today when he could not refuse when he became altered. Patient is a diabetic. He is not very compliant with medications since he had an elevated blood sugar of 526. His A1c was 14. Patient was empirically started on cefepime, vancomycin and Tamiflu for suspected infectious process. Infectious disease is consulted for evaluation and management of gram-negative bacteremia based on blood cultures drawn on admission. Patient reports history of diarrhea, nausea vomiting few days prior to admission. Thinks he may have had the stomach flu in addition to the flu. Review of Systems ROS Limitations: Poor Historian Constitutional: COMPLAINS OF: Fatigue, Fever, Chills, DENIES: Diaphoretic episodes, Weight gain, Weight loss, Dizziness, Change in appetite, Night Sweats Endocrine: DENIES: Heat/cold intolerance, Polydipsia, Polyuria, Polyphagia Eyes: DENIES: Blurred vision, Diplopia, Eye inflammation, Eye pain, Vision loss , Photosensitivity, Double Vision Ears, nose, mouth, throat: DENIES: Tinnitus, Hearing loss, Vertigo, Nasal discharge, Oral lesions, Throat pain, Hoarseness, Ear Pain, Running Nose, Epistaxis, Sinus Pain, Toothache, Odynophagia Respiratory: DENIES: Apneas, Cough, Snoring, Wheezing, Hemoptysis, Sputum production, Shortness of breath Cardiovascular: DENIES: Chest pain, Palpitations, Syncope, Dyspnea on Exertion , PND, Lower Extremity Edema, Orthopnea, Claudication Gastrointestinal: DENIES: Abdominal pain, Black stools, Bloody stools, Constipation, Diarrhea, Nausea, Vomiting, Difficulty Swallowing, Anorexia Genitourinary: DENIES: Sexual dysfunction, Urinary frequency, Urinary incontinence, Urgency, Hematuria, Dysuria, Nocturia, Penile Discharge, Testicular Pain, Testicular Swelling Musculoskeletal: COMPLAINS OF: Joint pain, DENIES: Muscle aches, Stiffness, Joint Swelling, Back pain, Neck pain Integumentary: DENIES: Abnormal pigmentation, Nail changes, Pruritus, Rash Hematologic/lymphatic: DENIES: Bruising, Lymphadenopathy Immunologic/allergic: DENIES: Eczema, Urticaria Neurologic: DENIES: Abnormal gait, Headache, Localized weakness, Paresthesias, Seizures, Speech Problems, Tremor, Poor Balance Psychiatric: DENIES: Anxiety, Confusion, Mood changes, Depression, Hallucinations, Agitation, Suicidal Ideation, Homicidal Ideation, Delusions Except as stated in HPI: all other systems reviewed are Neg Past Family Social History Allergies: Coded Allergies: aspirin (Unverified Allergy, Unknown, 05/29/17) Past Medical History Diabetes mellitus Uncontrolled diabetes mellitus medical noncompliance Hypertension Diabetic neuropathy Right 3rd toe gangrene Chronic hip pain awaiting hip replacement in near future. Past Surgical History None per patient. Reported Medications Reported Meds & Active Scripts Active Reported Tamiflu (Oseltamivir Phosphate) 75 Mg Cap 75 Mg PO BID Azithromycin 500 Mg Tab 500 Mg PO DAILY Gabapentin 300 Mg Cap 300 Mg PO HS Lisinopril 10 Mg Tab 10 Mg PO DAILY Hydrochlorothiazide 12.5 Mg Tab 12.5 Mg PO BID Naproxen 500 Mg Tab 500 Mg PO BID Metformin ER (Metformin HCl) 1,000 Mg Natalia 1,000 Mg PO BID With evening meal Active Ordered Medications Current Medications Medications (Trade) Dose Ordered Sig/Jackie Route Start Time Stop Time Status Last Admin (Neurontin) 300 mg HS PO 05/29/17 21:00 05/29/17 23:37 (Microzide) 12.5 mg BID PO 05/29/17 21:00 05/30/17 09:16 (Prinivil) 10 mg DAILY PO 05/29/17 18:15 05/30/17 09:16 (Naprosyn) 500 mg BID PO 05/29/17 21:00 05/30/17 09:15 (Tamiflu) 75 mg BID PO 05/29/17 21:00 05/30/17 09:15 (D50w (Vial) Inj) 50 ml UNSCH PRN IV PUSH 05/29/17 18:15 (Glucagon Inj) 1 mg UNSCH PRN OTHER 05/29/17 18:15 (NovoLOG SUPPLEMENTAL SCALE) 1 ACHS SLIDING SCALE SQ 05/29/17 21:00 05/30/17 17:00 (Catapres) 0.1 mg Q4H PRN PO 05/29/17 18:15 Sodium Chloride 1,000 ml @ 100 mls/hr Q10H IV 05/29/17 18:00 05/30/17 14:00 (NS Flush) 2 ml UNSCH PRN IV FLUSH 05/29/17 18:15 (NS Flush) 2 ml BID IV FLUSH 05/29/17 21:00 05/30/17 09:00 (Tylenol) 650 mg Q4H PRN PO 05/29/17 18:15 (Zofran Inj) 4 mg Q6H PRN IVP 05/29/17 18:15 (Reglan Inj) 5 mg Q6H PRN IV PUSH 05/29/17 18:15 (Ambien) 5 mg HS PRN PO 05/29/17 18:15 (Lovenox Inj) 40 mg Q24H SQ 05/29/17 20:00 05/29/17 23:21 (Tylenol) 650 mg Q6H PRN PO 05/29/17 18:15 (Percocet 5-325 Mg) 1 tab Q6H PRN PO 05/29/17 18:15 (Percocet 10-325 Mg) 1 tab Q6H PRN PO 05/29/17 18:15 (Morphine Inj) 2 mg Q3H PRN IV PUSH 05/29/17 18:15 (Morphine Inj) 4 mg Q3H PRN IV PUSH 05/29/17 18:30 (Narcan Inj) 0.4 mg UNSCH PRN IV PUSH 05/29/17 18:15 (Alma Delia-Colace) 1 tab BID PO 05/29/17 21:00 05/29/17 23:56 (Milk Of Magnesia Liq) 30 ml Q12H PRN PO 05/29/17 18:15 (Senokot) 17.2 mg Q12H PRN PO 05/29/17 18:15 (Dulcolax Supp) 10 mg DAILY PRN RECTAL 05/29/17 18:15 (Lactulose Liq) 30 ml DAILY PRN PO 05/29/17 18:15 (Diflucan) 200 mg DAILY PO 05/29/17 18:30 05/30/17 09:16 (Mycostatin Liq) 5 ml QID SWISH-SWAL 05/29/17 21:00 05/30/17 18:17 (Levemir Inj) 10 units BID SQ 05/29/17 21:00 05/30/17 09:17 Cefepime HCl 2000 mg/Sodium Chloride 100 ml @ 200 mls/hr Q12H IV 05/30/17 03:00 05/30/17 15:00 Pharmacy Profile Note 0 ml @ 0 mls/hr UNSCH OTHER 05/29/17 18:15 (Duoneb Neb) 1 ampule Q4HR NEB PRN NEB 05/29/17 18:15 (Mucinex Er) 600 mg BID PO 05/29/17 21:00 05/30/17 09:16 (Theragran) 1 tab DAILY PO 05/29/17 18:30 05/30/17 09:16 (Vitamin B1) 100 mg DAILY PO 05/29/17 18:30 05/30/17 09:15 (Folate) 1 mg DAILY PO 05/29/17 18:30 05/30/17 09:16 Azithromycin 500 mg/Sodium Chloride 250 ml @ 250 mls/hr Q24H IV 05/30/17 00:00 05/29/17 23:45 (Vasotec Inj) 1.25 mg Q6H PRN IV PUSH 05/29/17 23:15 Vancomycin HCl 2000 mg/Sodium Chloride 520 ml @ 250 mls/hr Q18H IV 05/30/17 21:00 Miscellaneous Information SPECIFIC LAB TO BE DRAWN:VANCOMYCIN TROUGH DATE TO... ONCE ONCE .XX 06/01/17 08:45 06/01/17 08:46 Family History reviewed and NC to current ID problems. 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 Drinks 2-3 beers per day Denies smoking. Denies IVDA. Physical Exam Vital Signs Vital Signs Date Time Temp Pulse Resp B/P (MAP) Pulse Ox O2 Delivery O2 Flow Rate FiO2 05/30/17 12:00 97.4 110 18 100/57 (71) 96 05/30/17 08:00 98.3 102 18 148/86 (106) 98 05/30/17 07:52 100 05/30/17 04:00 97.8 92 20 117/68 (84) 96 05/30/17 04:00 21 05/30/17 03:58 80 05/30/17 00:06 98 05/30/17 00:00 97.7 93 18 114/70 (85) 96 05/30/17 00:00 98.3 94 18 113/66 (82) 94 05/29/17 22:06 93 05/29/17 19:10 98.0 98 18 98/52 (67) 95 05/29/17 18:30 101 22 103/59 (74) 95 Room Air 05/29/17 16:55 108 26 102/58 (73) 98 Room Air 05/29/17 16:11 20 05/29/17 15:38 99.6 118 20 156/78 (104) 98 Room Air Physical Exam GENERAL: Obese, well-developed patient, in no apparent distress. SKIN: No rashes, ecchymoses or lesions. Cool and dry. HEAD: Atraumatic. Normocephalic. No temporal or scalp tenderness. EYES: Pupils equal round and reactive. Extraocular motions intact. No scleral icterus. No injection or drainage. ENT: Nose without bleeding, purulent drainage or septal hematoma. Throat without erythema, tonsillar hypertrophy or exudate. Uvula midline. Airway patent. Dentition: poor oral hygiene, oral thrush, missing teeth, loose teeth. NECK: Trachea midline.Supple, nontender, no meningeal signs. CARDIOVASCULAR:HS audible. RESPIRATORY: Clear to auscultation. Breath sounds equal bilaterally. No wheezes , rales, or rhonchi. GASTROINTESTINAL: Abdomen soft, non-tender, nondistended. MUSCULOSKELETAL: Extremities without clubbing, cyanosis, or edema. Right third toe with dry gangrene-like changes at the tip at the bottom portion appears to be infected and has significant tenderness. NEUROLOGICAL: Awake and alert. Grossly non focal Psych cooperative IV line sites with no e.o infection. Laboratory Laboratory Tests Test 05/30/17 00:20 05/30/17 08:29 Total Creatine Kinase 44 31 Troponin I LESS THAN 0.02 LESS THAN 0.02 White Blood Count 10.2 Red Blood Count 3.71 Hemoglobin 12.0 Hematocrit 35.1 Mean Corpuscular Volume 94.7 Mean Corpuscular Hemoglobin 32.4 Mean Corpuscular Hemoglobin Concent 34.2 Red Cell Distribution Width 13.8 Platelet Count 135 Mean Platelet Volume 10.1 Neutrophils (%) (Auto) 88.2 Lymphocytes (%) (Auto) 8.1 Monocytes (%) (Auto) 2.8 Eosinophils (%) (Auto) 0.6 Basophils (%) (Auto) 0.3 Neutrophils # (Auto) 9.0 Lymphocytes # (Auto) 0.8 Monocytes # (Auto) 0.3 Eosinophils # (Auto) 0.1 Basophils # (Auto) 0.0 CBC Comment DIFF FINAL Differential Comment Blood Urea Nitrogen 29 Creatinine 0.97 Random Glucose 126 Total Protein 7.4 Albumin 2.0 Calcium Level 9.2 Phosphorus Level 2.0 Magnesium Level 1.8 Alkaline Phosphatase 135 Aspartate Amino Transf (AST/SGOT) 28 Alanine Aminotransferase (ALT/SGPT) 20 Total Bilirubin 1.3 Sodium Level 140 Potassium Level 3.5 Chloride Level 105 Carbon Dioxide Level 27.6 Anion Gap 7 Estimat Glomerular Filtration Rate 96 Free Thyroxine 1.26 Thyroid Stimulating Hormone 3rd Gen 0.692 Date/Time Source Procedure Growth Status 05/29/17 12:20 Blood Peripheral Aerobic Blood Culture - Preliminary Enterobacter Species Resulted 05/29/17 12:20 Anaerobic Blood Culture - Preliminary Gram Negative Melvin Resulted 05/29/17 14:30 Urine Catheterized Urine Urine Culture Pending Received Result Diagram: 05/30/17 0829 05/30/17 08 Imaging Last Impressions Head CT 05/29/17 120 Signed Impressions: Service Date/Time: Monday, May 29, 2017 12:44 - CONCLUSION: 1. No acute intracranial abnormality is seen. 2. Age-related atrophy. Ghassan Pearson MD Chest X-Ray 05/29/17 1202 Signed Impressions: Service Date/Time: Monday, May 29, 2017 12:12 - CONCLUSION: No acute disease. Ghassan Pearson MD Assessment and Plan Assessment and Plan Sepsis present on admission (fever, tachycardia, source: bacteremia). Enterobacter species bacteremia: Possible source in the right third toe osteomyelitis or GI source. History of diarrhea, nausea vomiting prior to admission: Resolved. Right third toe with dry gangrene-like changes at the tip at the bottom portion appears to be infected and has significant tenderness. h/o non compliance. oral thrush, missing teeth, loose teeth. Acute renal failure on admission: prerenal, sepsis: appears Cr improved, follow trend. acute metabolic encephalopathy: poorly controlled DM, Sepsis: resolving. Recommendations: Repeat blood cultures 2 Continue cefepime IV Discontinue azithromycin IV Discontinue vancomycin IV Discontinue Tamiflu (I doubt this is flu as bacteremia can mimic flu) Check Hepatitis panel. Check HIV antibody. Consult podiatry: if podiatry does not think toe is infected then will target GI as well as teeth for further workup. Follow cultures Follow clinically. Charlene Jung MD May 30, 2017 14:42
[2017-05-30] MEDS: ENOXAPARIN SODIUM 40 MG/0.4 ML SYRINGE SQ SCH (20:49)
[2017-05-30] MEDS: GABAPENTIN 300 MG CAP PO SCH (20:50)
[2017-05-30] MEDS ORDERED: VANCOMYCIN INJ 2,000 MG in SODIUM CHLORID 0.9% 500 ML INJ 500 ML IV SCH (21:00)
--- NOTE | 2017-05-30 21:38 | RADRPT ---
EXAM DATE/TIME: 05/30/2017 21:16 [facility] COMPARISON: No previous studies available for comparison. INDICATIONS : Right foot infection. MEDICAL HISTORY : Hypertension. Diabetes mellitus type 2. SURGICAL HISTORY : None. ENCOUNTER: Initial ACUITY: >1 year PAIN SCORE: 10/10 LOCATION: Right foot, 3rd digit. FINDINGS: There is no acute fracture or dislocation. Mild degenerative changes are noted involving the first me tatarsophalangeal joint. Plantar and Achilles spurring is noted. Calcification is noted involving the expected region of the plantar fascia adjacent to the plantar spur. CONCLUSION: 1. No acute fracture or dislocation. 2. Mild degenerative changes involving first metatarsophalangeal joint. 3. Plantar and Achilles calcaneal spurring. 4. Calcification involving the expected region of the plantar fascia adjacent to the plantar spur. Salty Queen MD on May 30, 2017 at 21:33 Board Certified Radiologist. This report was verified electronically.
[2017-05-31] VITALS (9 sets, daily range): BP systolic 109–171; BP diastolic 59–102; PULSE 80–105; RESP 17–20; TEMP 98.1–98.7; O2SAT 95–99
[2017-05-31] MEDS: SODIUM CHLOR 0.9% 1000 ML INJ 1,000 ML IV SCH ×3 (00:41→21:53)
--- NOTE | 2017-05-31 01:19 | EKG ---
Date Performed: 05/29/2017 Time Performed: 11:56:29 PTAGE: 61 years EKG: SINUS TACHYCARDIA NONSPECIFIC T-WAVE ABNORMALITY ABNORMAL RHYTHM ECG Since the prior tracin g, there has been no significant change DOCTOR: Silvino Chaparro Interpretating Date/Time 05/31/2017 01:17:51
[2017-05-31] MEDS: CEFEPIME INJ 2,000 MG in SODIUM CHLORIDE 0.9% INJ 100 ML IV SCH ×2 (02:55→14:40)
[2017-05-31] MEDS: INSULIN ASPART SUPPLEMENTAL SCALE SQ SCH ×4 (08:00→21:06)
[2017-05-31] MEDS: guaiFENesin E.R. 600 MG TAB PO SCH ×2 (08:45→21:54)
[2017-05-31] MEDS: NAPROXEN 500 MG TAB PO SCH ×2 (08:45→21:53)
[2017-05-31] MEDS: NYSTATIN SUSP 500,000 U/5 ML CUP SWISH-SWAL SCH ×4 (08:45→21:54)
[2017-05-31] MEDS: FOLIC ACID 1 MG TAB PO SCH (08:45)
[2017-05-31] MEDS: THIAMINE HCL 100 MG TAB PO SCH (08:45)
[2017-05-31] MEDS: LISINOPRIL 10 MG TAB PO SCH (08:45)
[2017-05-31] MEDS: MULTIVITAMIN TAB PO SCH (08:45)
[2017-05-31] MEDS: DOCUSATE SODIUM 50 MG/SENNA 8.6 MG TAB PO SCH ×2 (08:46→21:00)
[2017-05-31] MEDS: FLUCONAZOLE 200 MG TAB PO SCH (08:46)
[2017-05-31] MEDS: SODIUM CHLORIDE 0.9% FLUSH 10 ML FLUSH IV FLUSH SCH ×2 (08:46→21:05)
[2017-05-31] MEDS: HYDROCHLOROTHIAZIDE 12.5 MG CAP PO SCH ×2 (08:46→21:53)
[2017-05-31] MEDS: INSULIN DETEMIR 100 UNITS/ML VIAL SQ SCH (09:00)
[2017-05-31 11:04] LABS: HEPATITIS A AB IGM NEGATIVE (NEGATIVE); HEPATITIS B CORE AB IGM NEGATIVE (NEGATIVE); HEPATITIS B SURFACE ANTIGEN NEGATIVE (NEGATIVE); HEPATITIS C AB IgG NEGATIVE (NEGATIVE)
--- NOTE | 2017-05-31 12:43 | PD.POD.CON ---
Patient Intake Chief Complaint Third toe right foot with possible gangrene Consult Requested by Dr. Jung Reason for Consult Evaluation of third toe right foot Primary Care Physician Non-Staff History of Present Illness 61-year-old diabetic male who has not seen a foot doctor in the past presented with altered mental status. I was asked to evaluate the third toe of the right foot for possible gangrenous changes. Coded Allergies: aspirin (Unverified Allergy, Unknown, 05/29/17) Preferred Language to Discuss: Singaporean Barriers to Learning: None Teaching Method: Discussion Vital Signs Date Time Temp Pulse Resp B/P (MAP) Pulse Ox O2 Delivery O2 Flow Rate FiO2 05/31/17 04:00 98.1 80 18 110/62 (78) 96 05/31/17 03:56 89 05/31/17 00:00 98.6 82 20 109/59 (76) 95 05/30/17 23:58 84 05/30/17 20:07 98 05/30/17 20:00 98.5 98 18 127/68 (87) 96 05/30/17 20:00 98.5 98 18 127/68 (87) 96 05/30/17 16:00 98.4 101 18 107/62 (77) 98 Pain scale used: 0-10 numeric scale Pain score: 0 Medications Current Medications Acetaminophen (Tylenol) 650 mg ONCE ONCE PO Last administered on 05/29/17at 12: 34; Start 05/29/17 at 12:15; Stop 05/29/17 at 12:16; Status DC Sodium Chloride 1,000 ml @ 1,000 mls/hr Q1H ONCE IV Last administered on at 12:34; Start 05/29/17 at 12:02; Stop 05/29/17 at 13:01; Status DC Cefepime HCl 1000 mg/Sodium Chloride 100 ml @ 200 mls/hr ONCE ONCE IV Last administered on 05/29/17at 14:32; Start 05/29/17 at 13:30; Stop 05/29/17 at 13:59 ; Status DC Vancomycin HCl 1000 mg/Sodium Chloride 250 ml @ 250 mls/hr ONCE ONCE IV Last administered on 05/29/17at 15:12; Start 05/29/17 at 13:30; Stop 05/29/17 at 14:29 ; Status DC Sodium Chloride 1,000 ml @ 999 mls/hr BOLUS ONCE IV Last administered on 05/29at 14:32; Start 05/29/17 at 14:00; Stop 05/29/17 at 15:00; Status DC Acetaminophen (Tylenol) 650 mg ONCE ONCE PO ; Start 05/29/17 at 14:45; Stop at 14:45; Status DC Ketorolac Tromethamine (Toradol Inj) 30 mg ONCE ONCE IV PUSH Last administered on 05/29/17at 15:12; Start 05/29/17 at 14:45; Stop 05/29/17 at 14:46 ; Status DC Insulin Human Regular (NovoLIN R INJ) 10 units ONCE ONCE IV PUSH Last administered on 05/29/17at 15:12; Start 05/29/17 at 15:00; Stop 05/29/17 at 15:01 ; Status DC Morphine Sulfate (Morphine Inj) 2 mg ONCE ONCE IV PUSH Last administered on at 17:00; Start 05/29/17 at 15:45; Stop 05/29/17 at 15:46; Status DC Azithromycin (Zithromax) 500 mg DAILY PO ; Start 05/29/17 at 18:45; Stop at 23:13; Status DC Gabapentin (Neurontin) 300 mg HS PO Last administered on 05/30/17at 20:50; Start 05/29/17 at 21:00 Hydrochlorothiazide (Microzide) 12.5 mg BID PO Last administered on 05/31/17at 08:46; Start 05/29/17 at 21:00 Lisinopril (Prinivil) 10 mg DAILY PO Last administered on 05/31/17at 08:45; Start 05/29/17 at 18:15 Naproxen (Naprosyn) 500 mg BID PO Last administered on 05/31/17at 08:45; Start 05/29/17 at 21:00 Oseltamivir Phosphate (Tamiflu) 75 mg BID PO Last administered on 05/30/17at 09: 15; Start 05/29/17 at 21:00; Stop 05/30/17 at 20:15; Status DC Metformin HCl (Glucophage) 1,000 mg BID PO Last administered on 05/30/17at 09:15 ; Start 05/29/17 at 21:00; Stop 05/30/17 at 17:36; Status DC Dextrose (D50w (Vial) Inj) 50 ml UNSCH PRN IV PUSH HYPOGLYCEMIA-SEE COMMENTS; Start 05/29/17 at 18:15 Glucagon (Glucagon Inj) 1 mg UNSCH PRN OTHER HYPOGLYCEMIA-SEE COMMENTS; Start 05/29/17 at 18:15 Insulin Aspart (NovoLOG SUPPLEMENTAL SCALE) 1 ACHS SLIDING SCALE SQ Last administered on 05/30/17at 20:49; Start 05/29/17 at 21:00 Clonidine (Catapres) 0.1 mg Q4H PRN PO SBP>160, DBP>90; Start 05/29/17 at 18:15 Sodium Chloride 1,000 ml @ 100 mls/hr Q10H IV Last administered on 05/31/17at 00:41; Start 05/29/17 at 18:00 Sodium Chloride (NS Flush) 2 ml UNSCH PRN IV FLUSH FLUSH AFTER USING IV ACCESS ; Start 05/29/17 at 18:15 Sodium Chloride (NS Flush) 2 ml BID IV FLUSH Last administered on 05/31/17at 08: 46; Start 05/29/17 at 21:00 Acetaminophen (Tylenol) 650 mg Q4H PRN PO TEMP > 100.4; Start 05/29/17 at 18:15 Ondansetron HCl (Zofran Inj) 4 mg Q6H PRN IVP NAUSEA OR VOMITING; Start at 18:15 Metoclopramide HCl (Reglan Inj) 5 mg Q6H PRN IV PUSH NAUSEA OR VOMITING; Start 05/29/17 at 18:15 Zolpidem Tartrate (Ambien) 5 mg HS PRN PO INSOMNIA; Start 05/29/17 at 18:15 Enoxaparin Sodium (Lovenox Inj) 40 mg Q24H SQ Last administered on 05/30/17at 20 :49; Start 05/29/17 at 20:00 Acetaminophen (Tylenol) 650 mg Q6H PRN PO PAIN SCALE 1 TO 2; Start 05/29/17 at 18:15 Oxycodone/ Acetaminophen (Percocet 5-325 Mg) 1 tab Q6H PRN PO PAIN SCALE 3 TO 5; Start 05/29/17 at 18:15 Oxycodone/ Acetaminophen (Percocet 10-325 Mg) 1 tab Q6H PRN PO PAIN SCALE 6 TO 10; Start 05/29/17 at 18:15 Morphine Sulfate (Morphine Inj) 2 mg Q3H PRN IV PUSH Pain 3-5; if unable to take PO; Start 05/29/17 at 18:15 Morphine Sulfate (Morphine Inj) 4 mg Q3H PRN IV PUSH Pain 6-10;if unable to take PO; Start 05/29/17 at 18:30 Naloxone HCl (Narcan Inj) 0.4 mg UNSCH PRN IV PUSH SEE LABEL COMMENTS; Start at 18:15 Senna/Docusate Sodium (Alma Delia-Colace) 1 tab BID PO Last administered on at 23:56; Start 05/29/17 at 21:00 Magnesium Hydroxide (Milk Of Magnesia Liq) 30 ml Q12H PRN PO Mild constipation ; Start 05/29/17 at 18:15 Sennosides (Senokot) 17.2 mg Q12H PRN PO Moderate constipation; Start 05/29/17 at 18:15 Bisacodyl (Dulcolax Supp) 10 mg DAILY PRN RECTAL SEVERE CONSITIPATION; Start at 18:15 Lactulose (Lactulose Liq) 30 ml DAILY PRN PO SEVERE CONSITIPATION; Start at 18:15 Fluconazole (Diflucan) 200 mg DAILY PO Last administered on 05/31/17at 08:46; Start 05/29/17 at 18:30 Nystatin (Mycostatin Liq) 5 ml QID SWISH-SWAL Last administered on 05/31/17at 08:45; Start 05/29/17 at 21:00 Insulin Detemir (Levemir Inj) 10 units BID SQ Last administered on 05/30/17at 20 :50; Start 05/29/17 at 21:00 Cefepime HCl 2000 mg/Sodium Chloride 100 ml @ 200 mls/hr Q12H IV Last administered on 05/31/17at 02:55; Start 05/30/17 at 03:00 Pharmacy Profile Note 0 ml @ 0 mls/hr UNSCH OTHER ; Start 05/29/17 at 18:15; Stop 05/30/17 at 20:15; Status DC Albuterol/ Ipratropium (Duoneb Neb) 1 ampule Q4HR NEB PRN NEB SHORTNESS OF BREATH; Start 05/29/17 at 18:15 Guaifenesin (Mucinex Er) 600 mg BID PO Last administered on 05/31/17at 08:45; Start 05/29/17 at 21:00 Multivitamins (Theragran) 1 tab DAILY PO Last administered on 05/31/17at 08:45; Start 05/29/17 at 18:30 Thiamine HCl (Vitamin B1) 100 mg DAILY PO Last administered on 05/31/17at 08:45 ; Start 05/29/17 at 18:30 Folic Acid (Folate) 1 mg DAILY PO Last administered on 05/31/17at 08:45; Start 05/29/17 at 18:30 Vancomycin HCl 1500 mg/Sodium Chloride 515 ml @ 250 mls/hr ONCE ONCE IV Last administered on 05/29/17at 21:47; Start 05/29/17 at 18:45; Stop 05/29/17 at 20:48 ; Status DC Azithromycin 500 mg/Sodium Chloride 250 ml @ 250 mls/hr Q24H IV Last administered on 05/29/17at 23:45; Start 05/30/17 at 00:00; Stop 05/30/17 at 20:15 ; Status DC Enalaprilat (Vasotec Inj) 1.25 mg Q6H PRN IV PUSH SBP>160, DBP>90; Start at 23:15 Vancomycin HCl 2000 mg/Sodium Chloride 520 ml @ 250 mls/hr Q18H IV ; Start at 21:00; Stop 05/30/17 at 21:00; Status DC Miscellaneous Information SPECIFIC LAB TO BE DRAWN:VANCOMYCIN TROUGH DATE TO... ONCE ONCE .XX ; Start 06/01/17 at 08:45; Stop 06/01/17 at 08:46; Status Cancel Past, Family & Social History Past Medical History Endocrine: REPORTS HX OF: Diabetes mellitus Genitourinary: REPORTS HX OF: Past UTI Psychiatric: REPORTS HX OF: Other psychiatric history Review of Systems Musculoskeletal: COMPLAINS OF: Deformaties Neurological: COMPLAINS OF: Numbness/tingling, Changes in sensation Exam-Podiatry Constitutional General appearance: comfortable Nutritional status: normal Orientation: alert and oriented x3 Dermatological Exam Skin Temp - Right: Within Normal Limits Skin Texture - Right: Within Normal Limits Skin Elasticity - Right: Within Normal Limits Skin Tugor - Right: Within Normal Limits Hair Growth - Right: Within Normal Limits Pigmentation - Right: Within Normal Limits Skin Temp - Left: Within Normal Limits Skin Texture - Left: Within Normal Limits Skin Elasticity - Left: Within Normal Limits Skin Tugor - Left: Within Normal Limits Hair Growth - Left: Within Normal Limits Pigmentation - Left: Within Normal Limits Abnormal Nail Conditions Discoloration: Toe #5 (R), Toe #4 (R), Toe #3 (R), Toe #2 (R), Toe #1 (R), Toe #1 (L), Toe #2 (L), Toe #3 (L), Toe #4 (L), Toe #5 (L) Thickening: Toe #5 (R), Toe #4 (R), Toe #3 (R), Toe #2 (R), Toe #1 (R), Toe #1 (L), Toe #2 (L), Toe #3 (L), Toe #4 (L), Toe #5 (L) Yellow, Brittle, &/or Nomi: Toe #5 (R), Toe #4 (R), Toe #3 (R), Toe #2 (R) , Toe #1 (R), Toe #1 (L), Toe #2 (L), Toe #3 (L), Toe #4 (L), Toe #5 (L) Distal: Toe #3 (R) Vascular/Lymphatic Exam R Dorsails Pedis: Palpable L Dorsails Pedis: Palpable R Posterior Tibial: Palpable L Posterior Tibial: Palpable Neurologic Exam Present on right: Tingling, Paraesthesia Present on left: Tingling, Paraesthesia Lab and Radiology Results Laboratory Laboratory Tests Test 05/30/17 08:29 White Blood Count 10.2 TH/MM3 Red Blood Count 3.71 MIL/MM3 Hemoglobin 12.0 GM/DL Hematocrit 35.1 % Mean Corpuscular Volume 94.7 FL Mean Corpuscular Hemoglobin 32.4 PG Mean Corpuscular Hemoglobin Concent 34.2 % Red Cell Distribution Width 13.8 % Platelet Count 135 TH/MM3 Mean Platelet Volume 10.1 FL Neutrophils (%) (Auto) 88.2 % Lymphocytes (%) (Auto) 8.1 % Monocytes (%) (Auto) 2.8 % Eosinophils (%) (Auto) 0.6 % Basophils (%) (Auto) 0.3 % Neutrophils # (Auto) 9.0 TH/MM3 Lymphocytes # (Auto) 0.8 TH/MM3 Monocytes # (Auto) 0.3 TH/MM3 Eosinophils # (Auto) 0.1 TH/MM3 Basophils # (Auto) 0.0 TH/MM3 CBC Comment DIFF FINAL Differential Comment Laboratory Tests Test 05/29/17 14:40 05/30/17 00:20 05/30/17 08:29 05/30/17 16:58 Lactic Acid Level 2.1 mmol/L Total Creatine Kinase 44 U/L 31 U/L Troponin I LESS THAN 0.02 NG/ML LESS THAN 0.02 NG/ML Blood Urea Nitrogen 29 MG/DL Creatinine 0.97 MG/DL Random Glucose 126 MG/DL Total Protein 7.4 GM/DL Albumin 2.0 GM/DL Calcium Level 9.2 MG/DL Phosphorus Level 2.0 MG/DL Magnesium Level 1.8 MG/DL Alkaline Phosphatase 135 U/L Aspartate Amino Transf (AST/SGOT) 28 U/L Alanine Aminotransferase (ALT/SGPT) 20 U/L Total Bilirubin 1.3 MG/DL Sodium Level 140 MEQ/L Potassium Level 3.5 MEQ/L Chloride Level 105 MEQ/L Carbon Dioxide Level 27.6 MEQ/L Anion Gap 7 MEQ/L Estimat Glomerular Filtration Rate 96 ML/MIN Hemoglobin A1c 14.0 % Free Thyroxine 1.26 NG/DL Thyroid Stimulating Hormone 3rd Gen 0.692 uIU/ML C-Reactive Protein 17.30 MG/DL Microbiology Date/Time Source Procedure Growth Status 05/30/17 16:53 Blood Peripheral Aerobic Blood Culture - Preliminary NO GROWTH IN 1 DAY Resulted 05/30/17 16:53 Blood Peripheral Anaerobic Blood Culture - Preliminary NO GROWTH IN 1 DAY Resulted 05/30/17 16:50 Blood Peripheral Aerobic Blood Culture - Preliminary NO GROWTH IN 1 DAY Resulted 05/30/17 16:50 Blood Peripheral Anaerobic Blood Culture - Preliminary NO GROWTH IN 1 DAY Resulted 05/29/17 12:20 Blood Peripheral Aerobic Blood Culture - Preliminary Enterobacter Species Resulted 05/29/17 12:20 Anaerobic Blood Culture - Preliminary Gram Negative Melvin Resulted 05/29/17 12:15 Blood Peripheral Aerobic Blood Culture - Preliminary Gram Negative Melvin Resulted 05/29/17 12:15 Anaerobic Blood Culture - Preliminary Gram Negative Melvin Resulted 05/29/17 14:30 Urine Catheterized Urine Urine Culture - Final 10-50,000 CFU/ML MIXED COCO... Complete Radiology Last Impressions Foot X-Ray 05/30/17 0000 Signed Impressions: Service Date/Time: Tuesday, May 30, 2017 21:16 - CONCLUSION: 1. No acute fracture or dislocation. 2. Mild degenerative changes involving first metatarsophalangeal joint. 3. Plantar and Achilles calcaneal spurring. 4. Calcification involving the expected region of the plantar fascia adjacent to the plantar spur. Salty Queen MD Head CT 05/29/17 1202 Signed Impressions: Service Date/Time: Monday, May 29, 2017 12:44 - CONCLUSION: 1. No acute intracranial abnormality is seen. 2. Age-related atrophy. Ghassan Pearson MD Chest X-Ray 05/29/17 1202 Signed Impressions: Service Date/Time: Monday, May 29, 2017 12:12 - CONCLUSION: No acute disease. Ghassan Pearson MD Assessment/Plan Problem List: (1) Type 2 diabetes mellitus with peripheral neuropathy Status: Chronic (2) Gibson of toe Status: Chronic (3) Onychomycosis Status: Chronic Additional Plans & Procedures PLAN: No sign of gangrene of the third toe. Patient would benefit from debridement of nails and calluses. They were given a card to follow-up in my office after discharge. Please reconsult if needed. Signing off for now Scar Khan DPM May 31, 2017 12:43
--- NOTE | 2017-05-31 12:50 | HHI.IDPN ---
Subjective Subjective Remarks Mr. 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 With this background patient presents to the emergency department due to altered mental status. Reportedly she was diagnosed with flu last week and was started on Tamiflu and azithromycin by his primary care physician. Patient's reports to me that she fell that he continued to decline despite these medications and she has been trying to bring him back to the hospital for the last few days. Patient reportedly refused until the day of admission when he became altered and was brought to the hospital. Patient's reports that he is not very compliant with his medications. Patient was found to have blood sugar in the 500s on admission. 61-year-old gentleman who is brought in by EMS due to altered mental status. Patient per EMS was diagnosed with the flu last week and was started on Tamiflu and azithromycin by his primary care physician last week. have been trying to get him to come back to the doctor or to the emergency department for the past few days. He is using until today when he could not refuse when he became altered. Patient is a diabetic. He is not very compliant with medications since he had an elevated blood sugar of 526. His A1c was 14. Patient was empirically started on cefepime, vancomycin and Tamiflu for suspected infectious process. Infectious disease is consulted for evaluation and management of gram-negative bacteremia based on blood cultures drawn on admission. Patient reports history of diarrhea, nausea vomiting few days prior to admission. Thinks he may have had the stomach flu in addition to the flu. Overnight events reviewed. Reports 3 episodes of diarrhea overnight. RN confirms this and reports at least one episode of diarrhea again this morning which is watery. Patient reported diarrhea prior to admission but yesterday when I saw him he reported resolution of the diarrhea but again appears to have resumed. No rash Antibiotics Cefepime 2 g IV every 12 Lines Line sites with no evidence of infection. Past Medical History Diabetes mellitus Uncontrolled diabetes mellitus medical noncompliance Hypertension Diabetic neuropathy Right 3rd toe gangrene Chronic hip pain awaiting hip replacement in near future. Past Surgical History None per patient. Allergies: Coded Allergies: aspirin (Unverified Allergy, Unknown, 05/29/17) Objective . Vital Signs Date Time Temp Pulse Resp B/P (MAP) Pulse Ox O2 Delivery O2 Flow Rate FiO2 05/31/17 08:00 80 05/31/17 04:00 98.1 80 18 110/62 (78) 96 05/31/17 03:56 89 05/31/17 00:00 98.6 82 20 109/59 (76) 95 05/30/17 23:58 84 05/30/17 20:07 98 05/30/17 20:00 98.5 98 18 127/68 (87) 96 05/30/17 20:00 98.5 98 18 127/68 (87) 96 05/30/17 16:00 98.4 101 18 107/62 (77) 98 . Laboratory Tests Test 05/30/17 08:29 White Blood Count 10.2 TH/MM3 Red Blood Count 3.71 MIL/MM3 Hemoglobin 12.0 GM/DL Hematocrit 35.1 % Mean Corpuscular Volume 94.7 FL Mean Corpuscular Hemoglobin 32.4 PG Mean Corpuscular Hemoglobin Concent 34.2 % Red Cell Distribution Width 13.8 % Platelet Count 135 TH/MM3 Mean Platelet Volume 10.1 FL Neutrophils (%) (Auto) 88.2 % Lymphocytes (%) (Auto) 8.1 % Monocytes (%) (Auto) 2.8 % Eosinophils (%) (Auto) 0.6 % Basophils (%) (Auto) 0.3 % Neutrophils # (Auto) 9.0 TH/MM3 Lymphocytes # (Auto) 0.8 TH/MM3 Monocytes # (Auto) 0.3 TH/MM3 Eosinophils # (Auto) 0.1 TH/MM3 Basophils # (Auto) 0.0 TH/MM3 CBC Comment DIFF FINAL Differential Comment Laboratory Tests Test 05/29/17 14:40 05/30/17 00:20 05/30/17 08:29 05/30/17 16:58 Lactic Acid Level 2.1 mmol/L Total Creatine Kinase 44 U/L 31 U/L Troponin I LESS THAN 0.02 NG/ML LESS THAN 0.02 NG/ML Blood Urea Nitrogen 29 MG/DL Creatinine 0.97 MG/DL Random Glucose 126 MG/DL Total Protein 7.4 GM/DL Albumin 2.0 GM/DL Calcium Level 9.2 MG/DL Phosphorus Level 2.0 MG/DL Magnesium Level 1.8 MG/DL Alkaline Phosphatase 135 U/L Aspartate Amino Transf (AST/SGOT) 28 U/L Alanine Aminotransferase (ALT/SGPT) 20 U/L Total Bilirubin 1.3 MG/DL Sodium Level 140 MEQ/L Potassium Level 3.5 MEQ/L Chloride Level 105 MEQ/L Carbon Dioxide Level 27.6 MEQ/L Anion Gap 7 MEQ/L Estimat Glomerular Filtration Rate 96 ML/MIN Hemoglobin A1c 14.0 % Free Thyroxine 1.26 NG/DL Thyroid Stimulating Hormone 3rd Gen 0.692 uIU/ML C-Reactive Protein 17.30 MG/DL Microbiology Date/Time Source Procedure Growth Status 05/30/17 16:53 Blood Peripheral Aerobic Blood Culture - Preliminary NO GROWTH IN 1 DAY Resulted 05/30/17 16:53 Blood Peripheral Anaerobic Blood Culture - Preliminary NO GROWTH IN 1 DAY Resulted 05/30/17 16:50 Blood Peripheral Aerobic Blood Culture - Preliminary NO GROWTH IN 1 DAY Resulted 05/30/17 16:50 Blood Peripheral Anaerobic Blood Culture - Preliminary NO GROWTH IN 1 DAY Resulted 05/29/17 12:20 Blood Peripheral Aerobic Blood Culture - Preliminary Enterobacter Species Resulted 05/29/17 12:20 Anaerobic Blood Culture - Preliminary Gram Negative Melvin Resulted 05/29/17 12:15 Blood Peripheral Aerobic Blood Culture - Preliminary Gram Negative Melvin Resulted 05/29/17 12:15 Anaerobic Blood Culture - Preliminary Gram Negative Melvin Resulted 05/29/17 14:30 Urine Catheterized Urine Urine Culture - Final 10-50,000 CFU/ML MIXED COCO... Complete Imaging Last Impressions Foot X-Ray 05/30/17 0000 Signed Impressions: Service Date/Time: Tuesday, May 30, 2017 21:16 - CONCLUSION: 1. No acute fracture or dislocation. 2. Mild degenerative changes involving first metatarsophalangeal joint. 3. Plantar and Achilles calcaneal spurring. 4. Calcification involving the expected region of the plantar fascia adjacent to the plantar spur. Salty Queen MD Head CT 05/29/17 1202 Signed Impressions: Service Date/Time: Monday, May 29, 2017 12:44 - CONCLUSION: 1. No acute intracranial abnormality is seen. 2. Age-related atrophy. Ghassan Pearson MD Chest X-Ray 05/29/17 1202 Signed Impressions: Service Date/Time: Monday, May 29, 2017 12:12 - CONCLUSION: No acute disease. Ghassan Pearson MD Physical Exam GENERAL: Obese, well-developed patient, in no apparent distress. SKIN: No rashes, ecchymoses or lesions. Cool and dry. HEAD: Atraumatic. Normocephalic. No temporal or scalp tenderness. EYES: Pupils equal round and reactive. Extraocular motions intact. No scleral icterus. No injection or drainage. ENT: Nose without bleeding, purulent drainage or septal hematoma. Throat without erythema, tonsillar hypertrophy or exudate. Uvula midline. Airway patent. Dentition: poor oral hygiene, oral thrush, missing teeth, loose teeth. NECK: Trachea midline.Supple, nontender, no meningeal signs. CARDIOVASCULAR:HS audible. RESPIRATORY: Clear to auscultation. Breath sounds equal bilaterally. No wheezes , rales, or rhonchi. GASTROINTESTINAL: Abdomen soft, non-tender, nondistended. MUSCULOSKELETAL: Extremities without clubbing, cyanosis, or edema. Right third toe with chronic skin changes. No erythema appreciated today. NEUROLOGICAL: Awake and alert. Grossly non focal Psych cooperative IV line sites with no e.o infection. Assessment & Plan Remarks Sepsis present on admission (fever, tachycardia, source: bacteremia). Enterobacter species bacteremia: Possible source in the right third toe osteomyelitis or GI source. History of diarrhea, nausea vomiting prior to admission: Resolved. Right third toe with dry gangrene-like changes at the tip at the bottom portion appears to be infected and has significant tenderness. h/o non compliance. oral thrush, missing teeth, loose teeth. Acute renal failure on admission: prerenal, sepsis: appears Cr improved, follow trend. acute metabolic encephalopathy: poorly controlled DM, Sepsis: resolving. Recommendations: Continue cefepime IV HIV and hepatitis panel negative. Discussed with Dr. Khan: Right third toe appears to be a callus no evidence of infection. Stool C. difficile for diarrhea present on admission Stool studies Stool WBC CT abdomen pelvis with contrast to look for any GI pathology that may be a cause for the enterococcal organism. Follow cultures Follow clinically. Discussed with patient, as well as daughter in the room. Charlene Jung MD May 31, 2017 12:50
[2017-05-31] MEDS ORDERED: DIATRIZOATE MEGLUM/DIATRIZOATE SOD 9 ML CUP PO ONE (13:45)
--- NOTE | 2017-05-31 17:17 | HHI.PR ---
Subjective Remarks The pt said that he had loose teeth. He said that he has been trying to eat. He had to go to the bathroom for a BM. Discussed with nursing. Objective Vitals Vital Signs Date Time Temp Pulse Resp B/P (MAP) Pulse Ox O2 Delivery O2 Flow Rate FiO2 05/31/17 12:00 96 05/31/17 12:00 98.4 105 20 171/93 (119) 97 05/31/17 08:00 98.2 95 20 152/93 (112) 96 05/31/17 08:00 80 05/31/17 04:00 98.1 80 18 110/62 (78) 96 05/31/17 03:56 89 05/31/17 00:00 98.6 82 20 109/59 (76) 95 05/30/17 23:58 84 05/30/17 20:07 98 05/30/17 20:00 98.5 98 18 127/68 (87) 96 05/30/17 20:00 98.5 98 18 127/68 (87) 96 I/O 05/30/17 05/30/17 05/30/17 05/31/17 05/31/17 05/31/17 07:00 15:00 23:00 07:00 15:00 23:00 Intake Total 1329 ml 1280 ml 1513 ml Output Total 1600 ml 1200 ml 900 ml Balance -271 ml 80 ml 613 ml Intake Oral 480 ml IV Total 1329 ml 800 ml 1513 ml Output Urine Total 1600 ml 1200 ml 900 ml # Bowel Movements 1 1 Result Diagram: 05/30/17 0829 05/30/17 0829 Imaging Last Impressions Foot X-Ray 05/30/17 0000 Signed Impressions: Service Date/Time: Tuesday, May 30, 2017 21:16 - CONCLUSION: 1. No acute fracture or dislocation. 2. Mild degenerative changes involving first metatarsophalangeal joint. 3. Plantar and Achilles calcaneal spurring. 4. Calcification involving the expected region of the plantar fascia adjacent to the plantar spur. Salty Queen MD Head CT 05/29/17 1202 Signed Impressions: Service Date/Time: Monday, May 29, 2017 12:44 - CONCLUSION: 1. No acute intracranial abnormality is seen. 2. Age-related atrophy. Ghassan Pearson MD Chest X-Ray 05/29/17 1202 Signed Impressions: Service Date/Time: Monday, May 29, 2017 12:12 - CONCLUSION: No acute disease. Ghassan Pearson MD Objective Remarks GENERAL: No acute distress. SKIN: No rashes, ecchymoses or lesions. Cool and dry. HEAD: Atraumatic. Normocephalic. No temporal or scalp tenderness. EYES: Pupils equal round and reactive. Extraocular motions intact. No scleral icterus. No injection or drainage. ENT: Nose without bleeding, purulent drainage or septal hematoma. Throat without erythema, tonsillar hypertrophy or exudate. Uvula midline. Airway patent. Poor dentition oral thrush on tongue NECK: Trachea midline. No JVD or lymphadenopathy. Supple, nontender, no meningeal signs. CARDIOVASCULAR: Regular rate and rhythm without murmurs, gallops, or rubs. S1 and S2 no S3 or S4 RESPIRATORY: Clear to auscultation. Breath sounds equal bilaterally. No wheezes , rales, Few scattered rhonchi GASTROINTESTINAL: Abdomen soft, non-tender, nondistended. No hepato-splenomegaly , or palpable masses. No guarding. Obese MUSCULOSKELETAL: Extremities without clubbing, cyanosis, +1 lower extremity edema. NEUROLOGICAL: Awake and alert. Medications and IVs Current Medications Medications (Trade) Dose Ordered Sig/Jackie Route Start Time Stop Time Status Last Admin (Neurontin) 300 mg HS PO 05/29/17 21:00 05/30/17 20:50 (Microzide) 12.5 mg BID PO 05/29/17 21:00 05/31/17 08:46 (Prinivil) 10 mg DAILY PO 05/29/17 18:15 05/31/17 08:45 (Naprosyn) 500 mg BID PO 05/29/17 21:00 05/31/17 08:45 (D50w (Vial) Inj) 50 ml UNSCH PRN IV PUSH 05/29/17 18:15 (Glucagon Inj) 1 mg UNSCH PRN OTHER 05/29/17 18:15 (NovoLOG SUPPLEMENTAL SCALE) 1 ACHS SLIDING SCALE SQ 05/29/17 21:00 05/30/17 20:49 (Catapres) 0.1 mg Q4H PRN PO 05/29/17 18:15 Sodium Chloride 1,000 ml @ 100 mls/hr Q10H IV 05/29/17 18:00 05/31/17 10:00 (NS Flush) 2 ml UNSCH PRN IV FLUSH 05/29/17 18:15 (NS Flush) 2 ml BID IV FLUSH 05/29/17 21:00 05/31/17 08:46 (Tylenol) 650 mg Q4H PRN PO 05/29/17 18:15 (Zofran Inj) 4 mg Q6H PRN IVP 05/29/17 18:15 (Reglan Inj) 5 mg Q6H PRN IV PUSH 05/29/17 18:15 (Ambien) 5 mg HS PRN PO 05/29/17 18:15 (Lovenox Inj) 40 mg Q24H SQ 05/29/17 20:00 05/30/17 20:49 (Tylenol) 650 mg Q6H PRN PO 05/29/17 18:15 (Percocet 5-325 Mg) 1 tab Q6H PRN PO 05/29/17 18:15 (Percocet 10-325 Mg) 1 tab Q6H PRN PO 05/29/17 18:15 (Morphine Inj) 2 mg Q3H PRN IV PUSH 05/29/17 18:15 (Morphine Inj) 4 mg Q3H PRN IV PUSH 05/29/17 18:30 (Narcan Inj) 0.4 mg UNSCH PRN IV PUSH 05/29/17 18:15 (Alma Delia-Colace) 1 tab BID PO 05/29/17 21:00 05/29/17 23:56 (Milk Of Magnesia Liq) 30 ml Q12H PRN PO 05/29/17 18:15 (Senokot) 17.2 mg Q12H PRN PO 05/29/17 18:15 (Dulcolax Supp) 10 mg DAILY PRN RECTAL 05/29/17 18:15 (Lactulose Liq) 30 ml DAILY PRN PO 05/29/17 18:15 (Diflucan) 200 mg DAILY PO 05/29/17 18:30 05/31/17 08:46 (Mycostatin Liq) 5 ml QID SWISH-SWAL 05/29/17 21:00 05/31/17 13:15 (Levemir Inj) 10 units BID SQ 05/29/17 21:00 05/30/17 20:50 Cefepime HCl 2000 mg/Sodium Chloride 100 ml @ 200 mls/hr Q12H IV 05/30/17 03:00 05/31/17 14:40 (Duoneb Neb) 1 ampule Q4HR NEB PRN NEB 05/29/17 18:15 (Mucinex Er) 600 mg BID PO 05/29/17 21:00 05/31/17 08:45 (Theragran) 1 tab DAILY PO 05/29/17 18:30 05/31/17 08:45 (Vitamin B1) 100 mg DAILY PO 05/29/17 18:30 05/31/17 08:45 (Folate) 1 mg DAILY PO 05/29/17 18:30 05/31/17 08:45 (Vasotec Inj) 1.25 mg Q6H PRN IV PUSH 05/29/17 23:15 A/P Assessment and Plan Altered mental status Suspect secondary to infection. - continue on antibiotics per ID. - Continue on DuoNeb some Mucinex and incentive spirometry Gram Negative Bacteremia Unsure of source. - on cefepime. - work-up per ID. Hypertension Poorly controlled. - continue current regimen. Uncontrolled diabetes type II - continue insulin sliding scale and long acting insulin. - Hemoglobin A1C, IV fluids, Diabetic Education ongoing at this time - Discontinued Metformin. Thrush - continue on Diflucan and nystatin swish and swallow Deconditioning - continue with physical therapy and occupational therapy. GI prophylaxis and DVT prophylaxis Logan Fleming DO May 31, 2017 17:17
[2017-05-31] MEDS ORDERED: IOHEXOL 350 MG/ML 10 ML VIAL (for RAD DIAG) IVCONTRAST ONE (20:04)
--- NOTE | 2017-05-31 20:38 | RADRPT ---
EXAM DATE/TIME: 05/31/2017 19:58 [facility] COMPARISON: No previous studies available for comparison. INDICATIONS : Sepsis, abdominal pain. IV CONTRAST: 95 cc Omnipaque 350 (iohexol) IV ORAL CONTRAST: Prescribed oral contrast ingested. RADIATION DOSE: 16.12 CTDIvol (mGy) MEDICAL HISTORY : Hypertension. Diabetes mellitus type 1. SURGICAL HISTORY : None. ENCOUNTER: Initial ACUITY: 1 day PAIN SCALE: 8/10 LOCATION: abdomen TECHNIQUE: Volumetric scanning of the abdomen and pelvis was performed. Using automated exposure control and adjustment of the mA and/or kV according to patient size, radiation dose was kept as low as reasonably achievable to obtain optimal diagnostic quality images. DICOM format image data is av ailable electronically for review and comparison. FINDINGS: LOWER LUNGS: Tiny bilateral pleural effusions are noted. LIVER: Liver is enlarged and demonstrates mild diffuse fatty infiltration. No focal mass is noted . There is no dilation of the biliary tree. No calcified gallstones. SPLEEN: Normal size without lesion. PANCREAS: Within normal limits. KIDNEYS: Normal in size and shape. There is no mass, stone or hydronephrosis. ADRENAL GLANDS: Within normal limits. VASCULAR: There is no aortic aneurysm. BOWEL/MESENTERY: The stomach, small bowel, and colon demonstrate no acute abnormality. There is no free intraperitoneal air or fluid. ABDOMINAL WALL: Within normal limits. RETROPERITONEUM: There is no lymphadenopathy. BLADDER: The bladder contains a Gonzalez catheter and is empty. REPRODUCTIVE: Prostate gland is prominent. INGUINAL: There is no lymphadenopathy or hernia. MUSCULOSKELETAL: Degenerative changes and scoliosis of the thoracic and lumbar spine are noted. D egenerative changes are noted involving the joints bilaterally. CONCLUSION: 1. Tiny bilateral pleural effusions. 2. Enlarged liver with mild diffuse fatty infiltration. 3. Enlarged prostate. 4. Degenerative changes and scoliosis of the thoracolumbar spine. 5. Degenerative changes involving the hip joints bilaterally. Salty Queen MD on May 31, 2017 at 20:31 Board Certified Radiologist. This report was verified electronically.
[2017-05-31] MEDS: ENOXAPARIN SODIUM 40 MG/0.4 ML SYRINGE SQ SCH (21:54)
[2017-05-31] MEDS: GABAPENTIN 300 MG CAP PO SCH (21:54)
[2017-06-01] VITALS (8 sets, daily range): BP systolic 129–155; BP diastolic 78–88; PULSE 85–101; RESP 20; TEMP 97.7–98.7; O2SAT 96–98
[2017-06-01] MEDS: CEFEPIME INJ 2,000 MG in SODIUM CHLORIDE 0.9% INJ 100 ML IV SCH ×2 (03:29→14:43)
[2017-06-01] MEDS: SODIUM CHLOR 0.9% 1000 ML INJ 1,000 ML IV SCH ×3 (05:33→20:17)
[2017-06-01] MEDS ORDERED: PHARMACY ORDERED LAB ONE (08:45)
[2017-06-01] MEDS: SODIUM CHLORIDE 0.9% FLUSH 10 ML FLUSH IV FLUSH SCH ×2 (09:00→20:17)
[2017-06-01 09:26] LABS: HEMATOCRIT 32.4 % (39.0-51.0); HEMOGLOBIN 10.9 GM/DL (13.0-17.0); MEAN CELL VOLUME 92.2 FL (80.0-100.0); MEAN CORPUSCULAR HEMOGLOBIN 31.1 PG (27.0-34.0); MEAN CORPUSCULAR HGB CONC 33.7 % (32.0-36.0); MEAN PLATELET VOLUME 9.8 FL (7.0-11.0); PLATELET COUNT 140 TH/MM3 (150-450); RED BLOOD COUNT 3.51 MIL/MM3 (4.50-5.90); RED CELL DISTRIBUTION WIDTH 13.9 % (11.6-17.2); WHITE BLOOD COUNT 11.3 TH/MM3 (4.0-11.0)
[2017-06-01] MEDS: INSULIN DETEMIR 100 UNITS/ML VIAL SQ SCH (09:38)
[2017-06-01] MEDS: MULTIVITAMIN TAB PO SCH (09:38)
[2017-06-01] MEDS: FOLIC ACID 1 MG TAB PO SCH (09:38)
[2017-06-01] MEDS: THIAMINE HCL 100 MG TAB PO SCH (09:38)
[2017-06-01] MEDS: INSULIN ASPART SUPPLEMENTAL SCALE SQ SCH ×4 (09:38→20:16)
[2017-06-01] MEDS: NAPROXEN 500 MG TAB PO SCH ×2 (09:38→20:16)
[2017-06-01] MEDS: DOCUSATE SODIUM 50 MG/SENNA 8.6 MG TAB PO SCH ×2 (09:39→20:16)
[2017-06-01] MEDS: LISINOPRIL 10 MG TAB PO SCH (09:39)
[2017-06-01] MEDS: FLUCONAZOLE 200 MG TAB PO SCH (09:39)
[2017-06-01] MEDS: NYSTATIN SUSP 500,000 U/5 ML CUP SWISH-SWAL SCH ×4 (09:39→20:15)
[2017-06-01] MEDS: HYDROCHLOROTHIAZIDE 12.5 MG CAP PO SCH ×2 (09:39→20:15)
[2017-06-01] MEDS: guaiFENesin E.R. 600 MG TAB PO SCH ×2 (09:39→20:15)
[2017-06-01 09:41] LABS: BICARBONATE 24.6 MEQ/L (21.0-32.0); CALCIUM 8.3 MG/DL (8.5-10.1); CREATININE 0.68 MG/DL (0.60-1.30); MAGNESIUM 1.6 MG/DL (1.5-2.5)
[2017-06-01] MEDS ORDERED: POTASSIUM CHLORIDE 25 MEQ EFFERVESCENT TAB PO ONE (12:00)
--- NOTE | 2017-06-01 12:12 | HHI.PR ---
Subjective Remarks The pt wanted the Gonzalez catheter removed. He wanted to walk around more. He said he has been eating soft foods because of his tooth pain. Discussed with nursing and his family. Objective Vitals Vital Signs Date Time Temp Pulse Resp B/P (MAP) Pulse Ox O2 Delivery O2 Flow Rate FiO2 06/01/17 08:00 90 06/01/17 08:00 97.8 92 20 133/84 (100) 97 06/01/17 04:00 97.8 86 20 129/79 (96) 98 06/01/17 04:00 Room Air 06/01/17 04:00 85 06/01/17 00:00 Room Air 06/01/17 00:00 98.2 101 20 130/88 (102) 97 06/01/17 00:00 86 05/31/17 20:20 100 05/31/17 20:05 Room Air 05/31/17 20:05 98.2 98 18 133/74 (93) 96 05/31/17 17:05 98.7 104 17 153/102 (119) 99 05/31/17 16:00 100 I/O 05/31/17 05/31/17 05/31/17 06/01/17 06/01/17 06/01/17 07:00 15:00 23:00 07:00 15:00 23:00 Intake Total 1513 ml 580 ml 1488 ml Output Total 900 ml 1100 ml 800 ml Balance 613 ml -520 ml 688 ml Intake Oral 480 ml 400 ml IV Total 1513 ml 100 ml 1088 ml Output Urine Total 900 ml 1100 ml 800 ml # Bowel Movements 1 3 0 Result Diagram: 06/01/17 0815 06/01/17 0815 Imaging Last Impressions Abdomen/Pelvis CT 05/31/17 0000 Signed Impressions: Service Date/Time: Wednesday, May 31, 2017 19:58 - CONCLUSION: 1. Tiny bilateral pleural effusions. 2. Enlarged liver with mild diffuse fatty infiltration. 3. Enlarged prostate. 4. Degenerative changes and scoliosis of the thoracolumbar spine. 5. Degenerative changes involving the hip joints bilaterally. Salty Queen MD Foot X-Ray 05/30/17 0000 Signed Impressions: Service Date/Time: Tuesday, May 30, 2017 21:16 - CONCLUSION: 1. No acute fracture or dislocation. 2. Mild degenerative changes involving first metatarsophalangeal joint. 3. Plantar and Achilles calcaneal spurring. 4. Calcification involving the expected region of the plantar fascia adjacent to the plantar spur. Salty Queen MD Head CT 05/29/17 1202 Signed Impressions: Service Date/Time: Monday, May 29, 2017 12:44 - CONCLUSION: 1. No acute intracranial abnormality is seen. 2. Age-related atrophy. Ghassan Pearson MD Chest X-Ray 05/29/17 1202 Signed Impressions: Service Date/Time: Monday, May 29, 2017 12:12 - CONCLUSION: No acute disease. Ghassan Pearson MD Objective Remarks GENERAL: No acute distress. SKIN: No rashes, ecchymoses or lesions. Cool and dry. HEAD: Atraumatic. Normocephalic. No temporal or scalp tenderness. EYES: Pupils equal round and reactive. Extraocular motions intact. No scleral icterus. No injection or drainage. ENT: Nose without bleeding, purulent drainage or septal hematoma. Throat without erythema, tonsillar hypertrophy or exudate. Uvula midline. Airway patent. Poor dentition, oral thrush on tongue NECK: Trachea midline. No JVD or lymphadenopathy. Supple, nontender, no meningeal signs. CARDIOVASCULAR: Regular rate and rhythm without murmurs, gallops, or rubs. S1 and S2 no S3 or S4 RESPIRATORY: Clear to auscultation. Breath sounds equal bilaterally. No wheezes , rales, Few scattered rhonchi GASTROINTESTINAL: Abdomen soft, non-tender, nondistended. No hepato-splenomegaly , or palpable masses. No guarding. Obese MUSCULOSKELETAL: Extremities without clubbing, cyanosis, +1 lower extremity edema. NEUROLOGICAL: Awake and alert. PSYCH: Mood and affect appropriate. Medications and IVs Current Medications Medications (Trade) Dose Ordered Sig/Jackie Route Start Time Stop Time Status Last Admin (Neurontin) 300 mg HS PO 05/29/17 21:00 05/31/17 21:54 (Microzide) 12.5 mg BID PO 05/29/17 21:00 06/01/17 09:39 (Prinivil) 10 mg DAILY PO 05/29/17 18:15 06/01/17 09:39 (Naprosyn) 500 mg BID PO 05/29/17 21:00 06/01/17 09:38 (D50w (Vial) Inj) 50 ml UNSCH PRN IV PUSH 05/29/17 18:15 (Glucagon Inj) 1 mg UNSCH PRN OTHER 05/29/17 18:15 (NovoLOG SUPPLEMENTAL SCALE) 1 ACHS SLIDING SCALE SQ 05/29/17 21:00 06/01/17 09:38 (Catapres) 0.1 mg Q4H PRN PO 05/29/17 18:15 Sodium Chloride 1,000 ml @ 100 mls/hr Q10H IV 05/29/17 18:00 06/01/17 09:40 (NS Flush) 2 ml UNSCH PRN IV FLUSH 05/29/17 18:15 (NS Flush) 2 ml BID IV FLUSH 05/29/17 21:00 05/31/17 21:05 (Tylenol) 650 mg Q4H PRN PO 05/29/17 18:15 (Zofran Inj) 4 mg Q6H PRN IVP 05/29/17 18:15 (Reglan Inj) 5 mg Q6H PRN IV PUSH 05/29/17 18:15 (Ambien) 5 mg HS PRN PO 05/29/17 18:15 (Lovenox Inj) 40 mg Q24H SQ 05/29/17 20:00 05/31/17 21:54 (Tylenol) 650 mg Q6H PRN PO 05/29/17 18:15 (Percocet 5-325 Mg) 1 tab Q6H PRN PO 05/29/17 18:15 (Percocet 10-325 Mg) 1 tab Q6H PRN PO 05/29/17 18:15 (Morphine Inj) 2 mg Q3H PRN IV PUSH 05/29/17 18:15 (Morphine Inj) 4 mg Q3H PRN IV PUSH 05/29/17 18:30 (Narcan Inj) 0.4 mg UNSCH PRN IV PUSH 05/29/17 18:15 (Alma Delia-Colace) 1 tab BID PO 05/29/17 21:00 06/01/17 09:39 (Milk Of Magnesia Liq) 30 ml Q12H PRN PO 05/29/17 18:15 (Senokot) 17.2 mg Q12H PRN PO 05/29/17 18:15 (Dulcolax Supp) 10 mg DAILY PRN RECTAL 05/29/17 18:15 (Lactulose Liq) 30 ml DAILY PRN PO 05/29/17 18:15 (Diflucan) 200 mg DAILY PO 05/29/17 18:30 06/01/17 09:39 (Mycostatin Liq) 5 ml QID SWISH-SWAL 05/29/17 21:00 06/01/17 09:39 Cefepime HCl 2000 mg/Sodium Chloride 100 ml @ 200 mls/hr Q12H IV 05/30/17 03:00 06/01/17 03:29 (Duoneb Neb) 1 ampule Q4HR NEB PRN NEB 05/29/17 18:15 (Mucinex Er) 600 mg BID PO 05/29/17 21:00 06/01/17 09:39 (Theragran) 1 tab DAILY PO 05/29/17 18:30 06/01/17 09:38 (Vitamin B1) 100 mg DAILY PO 05/29/17 18:30 06/01/17 09:38 (Folate) 1 mg DAILY PO 05/29/17 18:30 06/01/17 09:38 (Vasotec Inj) 1.25 mg Q6H PRN IV PUSH 05/29/17 23:15 (Levemir Inj) 10 units DAILY SQ 06/01/17 09:00 06/01/17 09:38 (K-Lyte Cl Eff) 50 meq ONCE ONCE PO 06/01/17 12:00 06/01/17 12:01 UNV A/P Assessment and Plan Altered mental status Suspect secondary to infection. Improving. - continue on antibiotics per ID. Gram Negative Bacteremia Unsure of source. CT abdomen without obvious infection. - continue cefepime. - work-up per ID. Hypertension Improved. - continue current regimen. Uncontrolled diabetes type II Glucose fluctuates. A1c 14%. - continue insulin sliding scale and long acting insulin. - Discontinued Metformin. Thrush The pt has been having some trouble eating. - continue on Diflucan and nystatin swish and swallow. Deconditioning The pt would like to walk more. - continue with physical therapy and occupational therapy. - d/c Gonzalez. Hypokalemia Likely s/t decreased PO intake. - replete and monitor. PPx: Lovenox Discharge Planning Awaiting ID clearance Logan Fleming DO Jun 01, 2017 12:12
--- NOTE | 2017-06-01 16:01 | HHI.IDPN ---
Subjective Subjective Remarks Mr. 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 With this background patient presents to the emergency department due to altered mental status. Reportedly she was diagnosed with flu last week and was started on Tamiflu and azithromycin by his primary care physician. Patient's reports to me that she fell that he continued to decline despite these medications and she has been trying to bring him back to the hospital for the last few days. Patient reportedly refused until the day of admission when he became altered and was brought to the hospital. Patient's reports that he is not very compliant with his medications. Patient was found to have blood sugar in the 500s on admission. 61-year-old gentleman who is brought in by EMS due to altered mental status. Patient per EMS was diagnosed with the flu last week and was started on Tamiflu and azithromycin by his primary care physician last week. have been trying to get him to come back to the doctor or to the emergency department for the past few days. He is using until today when he could not refuse when he became altered. Patient is a diabetic. He is not very compliant with medications since he had an elevated blood sugar of 526. His A1c was 14. Patient was empirically started on cefepime, vancomycin and Tamiflu for suspected infectious process. Infectious disease is consulted for evaluation and management of gram-negative bacteremia based on blood cultures drawn on admission. Patient reports history of diarrhea, nausea vomiting few days prior to admission. Thinks he may have had the stomach flu in addition to the flu. Overnight events reviewed. No fever No rash No diarrhea. Antibiotics Cefepime 2 g IV every 12 Lines Line sites with no evidence of infection. Past Medical History Diabetes mellitus Uncontrolled diabetes mellitus medical noncompliance Hypertension Diabetic neuropathy Right 3rd toe gangrene Chronic hip pain awaiting hip replacement in near future. Past Surgical History None per patient. Allergies: Coded Allergies: aspirin (Unverified Allergy, Unknown, 05/29/17) Objective . Vital Signs Date Time Temp Pulse Resp B/P (MAP) Pulse Ox O2 Delivery O2 Flow Rate FiO2 06/01/17 12:00 97.7 98 20 155/87 (109) 96 06/01/17 08:00 90 06/01/17 08:00 97.8 92 20 133/84 (100) 97 06/01/17 04:00 97.8 86 20 129/79 (96) 98 06/01/17 04:00 Room Air 06/01/17 04:00 85 06/01/17 00:00 Room Air 06/01/17 00:00 98.2 101 20 130/88 (102) 97 06/01/17 00:00 86 05/31/17 20:20 100 05/31/17 20:05 Room Air 05/31/17 20:05 98.2 98 18 133/74 (93) 96 05/31/17 17:05 98.7 104 17 153/102 (119) 99 . Laboratory Tests Test 06/01/17 08:15 White Blood Count 11.3 TH/MM3 Red Blood Count 3.51 MIL/MM3 Hemoglobin 10.9 GM/DL Hematocrit 32.4 % Mean Corpuscular Volume 92.2 FL Mean Corpuscular Hemoglobin 31.1 PG Mean Corpuscular Hemoglobin Concent 33.7 % Red Cell Distribution Width 13.9 % Platelet Count 140 TH/MM3 Mean Platelet Volume 9.8 FL Laboratory Tests Test 05/30/17 16:58 06/01/17 08:15 C-Reactive Protein 17.30 MG/DL Blood Urea Nitrogen 18 MG/DL Creatinine 0.68 MG/DL Random Glucose 224 MG/DL Calcium Level 8.3 MG/DL Magnesium Level 1.6 MG/DL Sodium Level 134 MEQ/L Potassium Level 3.4 MEQ/L Chloride Level 101 MEQ/L Carbon Dioxide Level 24.6 MEQ/L Anion Gap 8 MEQ/L Estimat Glomerular Filtration Rate 144 ML/MIN Microbiology Date/Time Source Procedure Growth Status 05/30/17 16:53 Blood Peripheral Aerobic Blood Culture - Preliminary NO GROWTH IN 2 DAYS Resulted 05/30/17 16:53 Blood Peripheral Anaerobic Blood Culture - Preliminary NO GROWTH IN 2 DAYS Resulted 05/30/17 16:50 Blood Peripheral Aerobic Blood Culture - Preliminary NO GROWTH IN 2 DAYS Resulted 05/30/17 16:50 Blood Peripheral Anaerobic Blood Culture - Preliminary NO GROWTH IN 2 DAYS Resulted 05/31/17 16:30 Stool Stool Cyclospora Exam - Final NO CYCLOSPORA SEEN Complete 05/31/17 16:30 Stool Stool Cryptosporidium Exam - Final NEGATIVE - NO CRYPTOSPORIDIUM ANTIGEN... Complete 05/31/17 16:30 Stool Stool Stool Pus (CHARISSE) - Final RARE WBC Complete 05/31/17 16:30 Stool Stool Giardia Antigen (CHARISSE) - Final NEGATIVE - NO GIARDIA ANTIGEN DETECTE... Complete 05/31/17 16:30 Stool Stool - Final NO ENTERIC PATHOGENS DETECTED BY PCR... Complete 05/31/17 16:30 Stool Stool Rotavirus Antigen - Final NEGATIVE - ROTAVIRUS ANTIGEN IS ABSEN... Complete Imaging Last Impressions Foot X-Ray 05/30/17 0000 Signed Impressions: Service Date/Time: Tuesday, May 30, 2017 21:16 - CONCLUSION: 1. No acute fracture or dislocation. 2. Mild degenerative changes involving first metatarsophalangeal joint. 3. Plantar and Achilles calcaneal spurring. 4. Calcification involving the expected region of the plantar fascia adjacent to the plantar spur. Salty Queen MD Head CT 05/29/17 1202 Signed Impressions: Service Date/Time: Monday, May 29, 2017 12:44 - CONCLUSION: 1. No acute intracranial abnormality is seen. 2. Age-related atrophy. Ghassan Pearson MD Chest X-Ray 05/29/17 1202 Signed Impressions: Service Date/Time: Monday, May 29, 2017 12:12 - CONCLUSION: No acute disease. Ghassan Pearson MD Physical Exam GENERAL: Obese, well-developed patient, in no apparent distress. SKIN: No rashes, ecchymoses or lesions. Cool and dry. HEAD: Atraumatic. Normocephalic. No temporal or scalp tenderness. EYES: Pupils equal round and reactive. Extraocular motions intact. No scleral icterus. No injection or drainage. ENT: Nose without bleeding, purulent drainage or septal hematoma. Throat without erythema, tonsillar hypertrophy or exudate. Uvula midline. Airway patent. Dentition: poor oral hygiene, oral thrush, missing teeth, loose teeth. NECK: Trachea midline.Supple, nontender, no meningeal signs. CARDIOVASCULAR:HS audible. RESPIRATORY: Clear to auscultation. Breath sounds equal bilaterally. No wheezes , rales, or rhonchi. GASTROINTESTINAL: Abdomen soft, non-tender, nondistended. MUSCULOSKELETAL: Extremities without clubbing, cyanosis, or edema. Right third toe with chronic skin changes. No erythema appreciated today. NEUROLOGICAL: Awake and alert. Grossly non focal Psych cooperative IV line sites with no e.o infection. Assessment & Plan Remarks Sepsis present on admission (fever, tachycardia, source: bacteremia). Enterobacter species bacteremia: Possible source in the right third toe osteomyelitis or GI source. History of diarrhea, nausea vomiting prior to admission: Resolved. Right third toe with dry gangrene-like changes at the tip at the bottom portion appears to be infected and has significant tenderness. h/o non compliance. oral thrush, missing teeth, loose teeth. Acute renal failure on admission: prerenal, sepsis: appears Cr improved, follow trend. acute metabolic encephalopathy: poorly controlled DM, Sepsis: resolving. Recommendations: Discontinue cefepime IV Start Levaquin oral to complete a 14 no course of oral antibiotics for transient Enterobacter bacteremia. HIV and hepatitis panel negative. Discussed findings of CT abdomen pelvis with patient and family. Counseled about dental hygiene. Counseled about taking care of the callus on the right foot. Follow cultures Follow clinically. Discussed with patient, as well as daughter in the room. Discussed with Dr. Fleming: ( Levaquin stop date: 06/11/2017) If tolerated overnight please write a script for discharge. Will sign off please call back if any change in clinical condition or questions. Charlene Jung MD Jun 01, 2017 16:01
[2017-06-01] MEDS: LEVOFLOXACIN 750 MG TAB PO SCH (17:14)
[2017-06-01] MEDS: GABAPENTIN 300 MG CAP PO SCH (20:15)
[2017-06-01] MEDS: ENOXAPARIN SODIUM 40 MG/0.4 ML SYRINGE SQ SCH (20:15)
[2017-06-02] VITALS (12 sets, daily range): BP systolic 117–146; BP diastolic 64–81; PULSE 81–103; RESP 17–20; TEMP 98.1–99; O2SAT 96–99
[2017-06-02] MEDS: SODIUM CHLOR 0.9% 1000 ML INJ 1,000 ML IV SCH (06:02)
[2017-06-02 07:19] LABS: HEMATOCRIT 32.7 % (39.0-51.0); HEMOGLOBIN 11.2 GM/DL (13.0-17.0); MEAN CELL VOLUME 91.5 FL (80.0-100.0); MEAN CORPUSCULAR HEMOGLOBIN 31.5 PG (27.0-34.0); MEAN CORPUSCULAR HGB CONC 34.4 % (32.0-36.0); MEAN PLATELET VOLUME 9.8 FL (7.0-11.0); PLATELET COUNT 153 TH/MM3 (150-450); RED BLOOD COUNT 3.57 MIL/MM3 (4.50-5.90); RED CELL DISTRIBUTION WIDTH 14.2 % (11.6-17.2); WHITE BLOOD COUNT 11.4 TH/MM3 (4.0-11.0)
[2017-06-02 07:41] LABS: BICARBONATE 24.8 MEQ/L (21.0-32.0); CALCIUM 8.6 MG/DL (8.5-10.1); CREATININE 0.64 MG/DL (0.60-1.30); MAGNESIUM 1.6 MG/DL (1.5-2.5)
[2017-06-02] MEDS: NAPROXEN 500 MG TAB PO SCH ×2 (09:23→20:56)
[2017-06-02] MEDS: HYDROCHLOROTHIAZIDE 12.5 MG CAP PO SCH (09:23)
[2017-06-02] MEDS: MULTIVITAMIN TAB PO SCH (09:23)
[2017-06-02] MEDS: THIAMINE HCL 100 MG TAB PO SCH (09:23)
[2017-06-02] MEDS: FLUCONAZOLE 200 MG TAB PO SCH (09:23)
[2017-06-02] MEDS: INSULIN ASPART SUPPLEMENTAL SCALE SQ SCH ×4 (09:23→20:58)
[2017-06-02] MEDS: guaiFENesin E.R. 600 MG TAB PO SCH ×2 (09:23→20:56)
[2017-06-02] MEDS: DOCUSATE SODIUM 50 MG/SENNA 8.6 MG TAB PO SCH ×2 (09:23→20:57)
[2017-06-02] MEDS: NYSTATIN SUSP 500,000 U/5 ML CUP SWISH-SWAL SCH ×4 (09:23→20:58)
[2017-06-02] MEDS: LISINOPRIL 10 MG TAB PO SCH (09:24)
[2017-06-02] MEDS: FOLIC ACID 1 MG TAB PO SCH (09:24)
[2017-06-02] MEDS: INSULIN DETEMIR 100 UNITS/ML VIAL SQ SCH (09:24)
[2017-06-02] MEDS: SODIUM CHLORIDE 0.9% FLUSH 10 ML FLUSH IV FLUSH SCH ×2 (09:25→20:59)
--- NOTE | 2017-06-02 10:11 | HHI.PR ---
Subjective Remarks The patient was trying to clean himself with a washcloth. He said he wants to get out of the hospital soon. He had no acute complaints. He said he has not been ambulating much. Discussed with nursing. Objective Vitals Vital Signs Date Time Temp Pulse Resp B/P (MAP) Pulse Ox O2 Delivery O2 Flow Rate FiO2 06/02/17 08:39 98.1 81 17 146/76 (99) 98 06/02/17 04:58 98.6 81 20 128/72 (90) 97 06/02/17 04:06 Room Air 06/02/17 04:00 90 06/02/17 00:59 98.4 86 20 124/81 (95) 98 06/02/17 00:00 Room Air 06/02/17 00:00 83 06/01/17 21:56 Room Air 06/01/17 21:42 96 06/01/17 20:54 98.5 93 20 130/78 (95) 97 06/01/17 19:43 93 06/01/17 16:00 98.7 96 20 139/86 (103) 97 06/01/17 16:00 95 06/01/17 12:00 97.7 98 20 155/87 (109) 96 06/01/17 12:00 96 I/O 06/01/17 06/01/17 06/01/17 06/02/17 06/02/17 06/02/17 07:00 15:00 23:00 07:00 15:00 23:00 Intake Total 1488 ml 900 ml 2700 ml 1120 ml 240 ml Output Total 800 ml 1000 ml 1450 ml 400 ml Balance 688 ml 900 ml 1700 ml -330 ml -160 ml Intake Oral 400 ml 600 ml 120 ml 240 ml IV Total 1088 ml 900 ml 2100 ml 1000 ml Output Urine Total 800 ml 1000 ml 1450 ml 400 ml # Bowel Movements 0 1 Result Diagram: 06/02/17 0620 06/02/17 0620 Imaging Last Impressions Abdomen/Pelvis CT 05/31/17 0000 Signed Impressions: Service Date/Time: Wednesday, May 31, 2017 19:58 - CONCLUSION: 1. Tiny bilateral pleural effusions. 2. Enlarged liver with mild diffuse fatty infiltration. 3. Enlarged prostate. 4. Degenerative changes and scoliosis of the thoracolumbar spine. 5. Degenerative changes involving the hip joints bilaterally. Salty Queen MD Foot X-Ray 05/30/17 0000 Signed Impressions: Service Date/Time: Tuesday, May 30, 2017 21:16 - CONCLUSION: 1. No acute fracture or dislocation. 2. Mild degenerative changes involving first metatarsophalangeal joint. 3. Plantar and Achilles calcaneal spurring. 4. Calcification involving the expected region of the plantar fascia adjacent to the plantar spur. Salty Queen MD Head CT 05/29/17 1202 Signed Impressions: Service Date/Time: Monday, May 29, 2017 12:44 - CONCLUSION: 1. No acute intracranial abnormality is seen. 2. Age-related atrophy. Ghassan Pearson MD Chest X-Ray 05/29/17 1202 Signed Impressions: Service Date/Time: Monday, May 29, 2017 12:12 - CONCLUSION: No acute disease. Ghassan Pearson MD Objective Remarks GENERAL: No acute distress. SKIN: No rashes, ecchymoses or lesions. Cool and dry. HEAD: Atraumatic. Normocephalic. No temporal or scalp tenderness. EYES: Pupils equal round and reactive. Extraocular motions intact. No scleral icterus. No injection or drainage. ENT: Nose without bleeding, purulent drainage or septal hematoma. Throat without erythema, tonsillar hypertrophy or exudate. Uvula midline. Airway patent. Poor dentition, oral thrush on tongue NECK: Trachea midline. No JVD or lymphadenopathy. Supple, nontender, no meningeal signs. CARDIOVASCULAR: Regular rate and rhythm without murmurs, gallops, or rubs. S1 and S2 no S3 or S4 RESPIRATORY: Clear to auscultation. Breath sounds equal bilaterally. No wheezes , rales, Few scattered rhonchi GASTROINTESTINAL: Abdomen soft, non-tender, nondistended. No hepato-splenomegaly , or palpable masses. No guarding. Obese MUSCULOSKELETAL: Extremities without clubbing, cyanosis, +1 lower extremity edema. NEUROLOGICAL: Awake and alert. PSYCH: Calm. Medications and IVs Current Medications Medications (Trade) Dose Ordered Sig/Jackie Route Start Time Stop Time Status Last Admin (Neurontin) 300 mg HS PO 05/29/17 21:00 06/01/17 20:15 (Microzide) 12.5 mg BID PO 05/29/17 21:00 06/02/17 09:23 (Prinivil) 10 mg DAILY PO 05/29/17 18:15 06/02/17 09:24 (Naprosyn) 500 mg BID PO 05/29/17 21:00 06/02/17 09:23 (D50w (Vial) Inj) 50 ml UNSCH PRN IV PUSH 05/29/17 18:15 (Glucagon Inj) 1 mg UNSCH PRN OTHER 05/29/17 18:15 (NovoLOG SUPPLEMENTAL SCALE) 1 ACHS SLIDING SCALE SQ 05/29/17 21:00 06/02/17 09:23 (Catapres) 0.1 mg Q4H PRN PO 05/29/17 18:15 Sodium Chloride 1,000 ml @ 100 mls/hr Q10H IV 05/29/17 18:00 06/02/17 06:02 (NS Flush) 2 ml UNSCH PRN IV FLUSH 05/29/17 18:15 (NS Flush) 2 ml BID IV FLUSH 05/29/17 21:00 06/02/17 09:25 (Tylenol) 650 mg Q4H PRN PO 05/29/17 18:15 (Zofran Inj) 4 mg Q6H PRN IVP 05/29/17 18:15 (Reglan Inj) 5 mg Q6H PRN IV PUSH 05/29/17 18:15 (Ambien) 5 mg HS PRN PO 05/29/17 18:15 (Lovenox Inj) 40 mg Q24H SQ 05/29/17 20:00 06/01/17 20:15 (Tylenol) 650 mg Q6H PRN PO 05/29/17 18:15 (Percocet 5-325 Mg) 1 tab Q6H PRN PO 05/29/17 18:15 (Percocet 10-325 Mg) 1 tab Q6H PRN PO 05/29/17 18:15 (Morphine Inj) 2 mg Q3H PRN IV PUSH 05/29/17 18:15 (Morphine Inj) 4 mg Q3H PRN IV PUSH 05/29/17 18:30 (Narcan Inj) 0.4 mg UNSCH PRN IV PUSH 05/29/17 18:15 (Alma Delia-Colace) 1 tab BID PO 05/29/17 21:00 06/02/17 09:23 (Milk Of Magnesia Liq) 30 ml Q12H PRN PO 05/29/17 18:15 (Senokot) 17.2 mg Q12H PRN PO 05/29/17 18:15 (Dulcolax Supp) 10 mg DAILY PRN RECTAL 05/29/17 18:15 (Lactulose Liq) 30 ml DAILY PRN PO 05/29/17 18:15 (Diflucan) 200 mg DAILY PO 05/29/17 18:30 06/02/17 09:23 (Mycostatin Liq) 5 ml QID SWISH-SWAL 05/29/17 21:00 06/02/17 09:23 (Duoneb Neb) 1 ampule Q4HR NEB PRN NEB 05/29/17 18:15 (Mucinex Er) 600 mg BID PO 05/29/17 21:00 06/02/17 09:23 (Theragran) 1 tab DAILY PO 05/29/17 18:30 06/02/17 09:23 (Vitamin B1) 100 mg DAILY PO 05/29/17 18:30 06/02/17 09:23 (Folate) 1 mg DAILY PO 05/29/17 18:30 06/02/17 09:24 (Vasotec Inj) 1.25 mg Q6H PRN IV PUSH 05/29/17 23:15 (Levemir Inj) 10 units DAILY SQ 06/01/17 09:00 06/02/17 09:24 (Levaquin) 750 mg DAILY@1100 PO 06/01/17 17:00 06/01/17 17:14 A/P Assessment and Plan Altered mental status Suspect secondary to infection. Improving. - continue on antibiotics per ID. Gram Negative Bacteremia Unsure of source. CT abdomen without obvious infection. - continue by mouth Levaquin per ID. Hypertension Improved. - DC hydrochlorothiazide secondary to hypokalemia and hyponatremia. - Increase lisinopril to 20 mg by mouth daily and adjust as needed. Uncontrolled diabetes type II Glucose fluctuates. A1c 14%. - continue insulin sliding scale and long acting insulin. - Patient likely going to be noncompliant with insulin. We'll likely start by mouth regimen upon discharge. Thrush The pt has been having some trouble eating. - continue on Diflucan and nystatin swish and swallow. Deconditioning The pt would like to walk more. - continue with physical therapy and occupational therapy. - d/c Lisa. - Case management assisting with disposition. Hypokalemia Likely s/t hydrochlorothiazide. - replete and monitor. - DC hydrochlorothiazide. PPx: Lovenox Discharge Planning Awaiting placement versus improvement in strength prior to being discharged home. Anticipate 1-2 days Logan Fleming DO Jun 02, 2017 10:11
[2017-06-02] MEDS ORDERED: LISINOPRIL 10 MG TAB PO ONE (11:00)
[2017-06-02] MEDS ORDERED: POTASSIUM CHLORIDE 20 MEQ CONTROLLED RELEASE TAB PO ONE (11:00)
--- NOTE | 2017-06-02 11:15 | HHI.FF ---
Face to Face Verification Diagnosis: (1) Type 2 diabetes mellitus with peripheral neuropathy (2) [place] of toe (3) Altered mental status (4) Thrush (5) Bacteremia (6) Sepsis Physical Therapy Order: Evaluate and Treat, Improve ambulation, Strength and gait training Occupational Therapy Order: Evaluate and Treat, Improve ADL, Gross motor coordination, Fine motor coordination Home Health Nursing Order: Medical education Signs/symptoms of disease process Diabetic education Medication education-adverse effect Nursing assessment with vital signs I have seen patient James Lakhani on 06/02/17. My clinical findings support the need for the requested home health care services because: Ltd mobility - disease progression Deconditioned w/ increased weakness Med compliance is questionable Limited ability to care for self Need for psychosocial assistance Impaired cognition/judgement High risk of falls Infection w/ risk of complications I certify that my clinical findings support that this patient is homebound because: Impaired cognitive ability/safety Unsteady gait/balance Unsafe to leave home unassisted Need for psychosocial assistance Logan Fleming DO Jun 02, 2017 11:15
[2017-06-02] MEDS: LEVOFLOXACIN 750 MG TAB PO SCH (12:12)
--- NOTE | 2017-06-02 13:13 | ECHRPT ---
Indication: endocarditis CONCLUSIONS Normal left ventricular size and wall thickness. The left ventricular systolic function is normal wi th an estimated ejection fraction in the range of 60-65%. Normal wall motion. There is trace tricuspid valve regurgitation. Trace mitral valve regurgitation. BP: / HR: Rhythm: MEASUREMENTS (Male / Female) Normal Values Technical Quality:Fair 2D ECHO LV Diastolic Diameter PLAX 4.0 cm 4.2 - 5.9 / 3.9 - 5.3 cm LV Systolic Diameter PLAX 3.1 cm IVS Diastolic Thickness 1.3 cm 0.6 - 1.0 / 0.6 - 0.9 cm LVPW Diastolic Thickness 1.0 cm 0.6 - 1.0 / 0.6 - 0.9 cm LV Relative Wall Thickness 0.6 RV Internal Dim ED PLAX 3.0 cm M-MODE Aortic Root Diameter MM 3.4 cm LA Systolic Diameter MM 2.9 cm LA Ao Ratio MM 0.9 AV Cusp Separation MM 1.5 cm DOPPLER Mitral E Point Velocity 62.2 cm/s Mitral A Point Velocity 85.9 cm/s Mitral E to A Ratio 0.7 LV E' Lateral Velocity 9.1 cm/s Mitral E to LV E' Lateral Ratio 6.9 LV E' Septal Velocity 6.8 cm/s Mitral E to LV E' Septal Ratio 9.1 FINDINGS LEFT VENTRICLE Normal left ventricular size and wall thickness. The left ventricular systolic function is normal wi th an estimated ejection fraction in the range of 60-65%. Normal wall motion. RIGHT VENTRICLE Normal right ventricular size and systolic function. LEFT ATRIUM The left atrial size is normal. RIGHT ATRIUM The right atrial size is normal. ATRIAL SEPTUM Normal atrial septal thickness without atrial level shunting by limited color doppler interrogation. AORTA The aortic root and proximal ascending aorta are normal in size on limited imaging. MITRAL VALVE Structurally normal mitral valve. Trace mitral valve regurgitation. AORTIC VALVE Trileaflet aortic valve. No aortic valve regurgitation. No aortic valve stenosis. TRICUSPID VALVE Structurally normal tricuspid valve. There is trace tricuspid valve regurgitation. PULMONARY VALVE The pulmonary valve is not well visualized. VESSELS The inferior vena cava is normal in size. PERICARDIUM No pericardial effusion. David Rosado MD (Electronically Signed) Final Date:02 June 2017 13:12
[2017-06-02] MEDS: GABAPENTIN 300 MG CAP PO SCH (20:56)
[2017-06-02] MEDS: ENOXAPARIN SODIUM 40 MG/0.4 ML SYRINGE SQ SCH (20:58)
[2017-06-03] VITALS (9 sets, daily range): BP systolic 106–146; BP diastolic 63–100; PULSE 78–96; RESP 16–20; TEMP 97.9–99.2; O2SAT 98–99
[2017-06-03] MEDS: guaiFENesin E.R. 600 MG TAB PO SCH ×2 (08:38→21:38)
[2017-06-03] MEDS: NAPROXEN 500 MG TAB PO SCH ×2 (08:38→21:38)
[2017-06-03] MEDS: DOCUSATE SODIUM 50 MG/SENNA 8.6 MG TAB PO SCH ×2 (08:38→21:39)
[2017-06-03] MEDS: LISINOPRIL 10 MG TAB PO SCH (08:38)
[2017-06-03] MEDS: FOLIC ACID 1 MG TAB PO SCH (08:38)
[2017-06-03] MEDS: NYSTATIN SUSP 500,000 U/5 ML CUP SWISH-SWAL SCH ×4 (08:38→21:39)
[2017-06-03] MEDS: THIAMINE HCL 100 MG TAB PO SCH (08:38)
[2017-06-03] MEDS: FLUCONAZOLE 200 MG TAB PO SCH (08:38)
[2017-06-03] MEDS: SODIUM CHLORIDE 0.9% FLUSH 10 ML FLUSH IV FLUSH SCH ×2 (08:38→21:00)
[2017-06-03] MEDS: MULTIVITAMIN TAB PO SCH (08:38)
[2017-06-03] MEDS: INSULIN DETEMIR 100 UNITS/ML VIAL SQ SCH (08:39)
[2017-06-03] MEDS: INSULIN ASPART SUPPLEMENTAL SCALE SQ SCH ×4 (08:39→21:40)
[2017-06-03 09:49] LABS: AUTOMATED NEUTROPHIL # 8.5 TH/MM3 (1.8-7.7); BASOPHIL % 0.4 % (0.0-2.0); EOSINOPHIL # 0.1 TH/MM3 (0-0.4); EOSINOPHIL % 0.8 % (0.0-4.0); HEMATOCRIT 32.7 % (39.0-51.0); HEMOGLOBIN 11.1 GM/DL (13.0-17.0); LYMPH % 13.3 % (9.0-44.0); LYMPHOCYTE # 1.6 TH/MM3 (1.0-4.8); MEAN CELL VOLUME 92.3 FL (80.0-100.0); MEAN CORPUSCULAR HEMOGLOBIN 31.5 PG (27.0-34.0); MEAN CORPUSCULAR HGB CONC 34.1 % (32.0-36.0); MEAN PLATELET VOLUME 10.8 FL (7.0-11.0); MONO % 12.3 % (0.0-8.0); MONOCYTE # 1.4 TH/MM3 (0-0.9); NEUT % 73.2 % (16.0-70.0); PLATELET COUNT 163 TH/MM3 (150-450); RED BLOOD COUNT 3.54 MIL/MM3 (4.50-5.90); RED CELL DISTRIBUTION WIDTH 14.1 % (11.6-17.2); WHITE BLOOD COUNT 11.6 TH/MM3 (4.0-11.0)
[2017-06-03] MEDS: LEVOFLOXACIN 750 MG TAB PO SCH (12:23)
--- NOTE | 2017-06-03 15:05 | HHI.FF ---
Face to Face Verification Diagnosis: (1) Bacteremia (2) Type 2 diabetes mellitus with peripheral neuropathy (3) Onychomycosis (4) [place] of toe (5) Altered mental status (6) Sepsis (7) Hyperglycemia Home Health Nursing Order: Medical education Signs/symptoms of disease process Diabetic education Medication education-adverse effect Nursing assessment with vital signs I have seen patient James Lakhani on 06/03/17. My clinical findings support the need for the requested home health care services because: Ltd mobility - disease progression Deconditioned w/ increased weakness Med compliance is questionable Limited ability to care for self Need for psychosocial assistance High risk of falls Infection w/ risk of complications I certify that my clinical findings support that this patient is homebound because: Impaired cognitive ability/safety Unsteady gait/balance Unsafe to leave home unassisted Need for psychosocial assistance Logan Fleming DO Jun 03, 2017 15:05
[2017-06-03] MEDS ORDERED: LISI10TA3 PO (15:09)
[2017-06-03] MEDS ORDERED: LEVA750T9 PO (15:09)
[2017-06-03] MEDS ORDERED: GETGO ROLLING W1 MI1 (15:11)
--- NOTE | 2017-06-03 15:12 | HHI.DCPOC ---
Discharge Care Plan Diagnosis: (1) Type 2 diabetes mellitus with peripheral neuropathy (2) Bacteremia (3) Onychomycosis (4) [place] of toe (5) Altered mental status (6) Sepsis (7) Thrush Goals to Promote Your Health * To prevent worsening of your condition and complications * To maintain your health at the optimal level Directions to Meet Your Goals Take your medications as prescribed Follow your dietary instruction Follow activity as directed Keep your appointments as scheduled Take your immunizations and boosters as scheduled If your symptoms worsen call your PCP, if no PCP go to Urgent Care Center or Emergency Room Smoking is Dangerous to Your Health. Avoid second hand smoke Call the 24-hour hour crisis hotline for domestic abuse at Logan Fleming DO Jun 03, 2017 15:12
--- NOTE | 2017-06-03 15:14 | HHI.DS ---
Discharge Summary Admission Date May 29, 2017 at 15:58 Discharge Date: Jun 05, 2017 Admitting Diagnosis Sepsis, AMS, Hyperglycemia (1) Thrush ICD Code: B37.0 - Candidal stomatitis Status: Acute (2) Sepsis ICD Code: A41.9 - Sepsis, unspecified organism Diagnosis: Principal Status: Acute (3) Altered mental status ICD Code: R41.82 - Altered mental status, unspecified Diagnosis: Principal Status: Acute (4) [place] of toe ICD Code: L84 - Corns and callosities Status: Chronic (5) Onychomycosis ICD Code: B35.1 - Tinea unguium Status: Chronic (6) Bacteremia ICD Code: R78.81 - Bacteremia Diagnosis: Principal (7) Type 2 diabetes mellitus with peripheral neuropathy ICD Code: E11.42 - Type 2 diabetes mellitus with diabetic polyneuropathy Status: Chronic Procedures None Brief History - From Admission Patient is a 61-year-old gentleman who is brought in by EMS due to altered mental status. Patient per EMS was diagnosed with the flu last week and was started on Tamiflu and azithromycin by his primary care physician last week. have been trying to get him to come back to the doctor or to the emergency department for the past few days. He is using until today when he could not refuse when he became altered. Patient is a diabetic. He is not very compliant with medications since he had an elevated blood sugar over 500 Patient will be admitted. Continued on cefepime and vancomycin and Tamiflu. Continue on his home medications will consult nutrition and home coordinator. We'll start patient on insulin and Levemir and will educate him on this issue We'll continue on Diflucan for the oral thrush CBC/BMP: 06/03/17 0720 06/02/17 0620 Significant Findings Laboratory Tests Test 05/31/17 16:30 06/01/17 08:15 06/02/17 06:20 06/03/17 07:20 White Blood Count 11.3 TH/MM3 (4.0-11.0) 11.4 TH/MM3 (4.0-11.0) 11.6 TH/MM3 (4.0-11.0) Red Blood Count 3.51 MIL/MM3 (4.50-5.90) 3.57 MIL/MM3 (4.50-5.90) 3.54 MIL/MM3 (4.50-5.90) Hemoglobin 10.9 GM/DL (13.0-17.0) 11.2 GM/DL (13.0-17.0) 11.1 GM/DL (13.0-17.0) Hematocrit 32.4 % (39.0-51.0) 32.7 % (39.0-51.0) 32.7 % (39.0-51.0) Platelet Count 140 TH/MM3 (150-450) Random Glucose 224 MG/DL (74-106) 132 MG/DL (74-106) Calcium Level 8.3 MG/DL (8.5-10.1) Sodium Level 134 MEQ/L (136-145) 134 MEQ/L (136-145) Potassium Level 3.4 MEQ/L (3.5-5.1) Neutrophils (%) (Auto) 73.2 % (16.0-70.0) Monocytes (%) (Auto) 12.3 % (0.0-8.0) Neutrophils # (Auto) 8.5 TH/MM3 (1.8-7.7) Monocytes # (Auto) 1.4 TH/MM3 (0-0.9) Imaging Last Impressions Abdomen/Pelvis CT 05/31/17 0000 Signed Impressions: Service Date/Time: Wednesday, May 31, 2017 19:58 - CONCLUSION: 1. Tiny bilateral pleural effusions. 2. Enlarged liver with mild diffuse fatty infiltration. 3. Enlarged prostate. 4. Degenerative changes and scoliosis of the thoracolumbar spine. 5. Degenerative changes involving the hip joints bilaterally. Salty Queen MD Foot X-Ray 05/30/17 0000 Signed Impressions: Service Date/Time: Tuesday, May 30, 2017 21:16 - CONCLUSION: 1. No acute fracture or dislocation. 2. Mild degenerative changes involving first metatarsophalangeal joint. 3. Plantar and Achilles calcaneal spurring. 4. Calcification involving the expected region of the plantar fascia adjacent to the plantar spur. Salty Queen MD Head CT 1/29/18 1202 Signed Impressions: Service Date/Time: Monday, May 29, 2017 12:44 - CONCLUSION: 1. No acute intracranial abnormality is seen. 2. Age-related atrophy. Ghassan Pearson MD Chest X-Ray 05/29/171201 Signed Impressions: Service Date/Time: Monday, May 29, 2017 12:12 - CONCLUSION: No acute disease. Ghassan Pearson MD PE at Discharge GENERAL: No acute distress. SKIN: No rashes, ecchymoses or lesions. Cool and dry. HEAD: Atraumatic. Normocephalic. No temporal or scalp tenderness. EYES: Pupils equal round and reactive. Extraocular motions intact. No scleral icterus. No injection or drainage. ENT: Nose without bleeding, purulent drainage or septal hematoma. Throat without erythema, tonsillar hypertrophy or exudate. Uvula midline. Airway patent. Poor dentition, oral thrush on tongue NECK: Trachea midline. No JVD or lymphadenopathy. Supple, nontender, no meningeal signs. CARDIOVASCULAR: Regular rate and rhythm without murmurs, gallops, or rubs. S1 and S2 no S3 or S4 RESPIRATORY: Clear to auscultation. Breath sounds equal bilaterally. No wheezes , rales, Few scattered rhonchi GASTROINTESTINAL: Abdomen soft, non-tender, nondistended. No hepato-splenomegaly , or palpable masses. No guarding. Obese MUSCULOSKELETAL: Extremities without clubbing, cyanosis, +1 lower extremity edema. NEUROLOGICAL: Awake and alert. PSYCH: Mood and affect appropriate. Pt update on day of discharge The patient was feeling well and wanted to go home. He said he would be willing to work with physical therapy. He denied any pain. Discussed with nursing. Hospital Course Altered mental status Improved with treatment of infection. He will continue antibiotics to complete a course per ID. Gram negative bacteremia Blood culture grew Enterobacter species. CT abdomen without obvious infection. He will continue by mouth Levaquin per ID. Hypertension We discontinued hydrochlorothiazide secondary to hypokalemia and hyponatremia. We increased lisinopril to 20 mg by mouth daily. He will follow-up with his primary care doctor. Uncontrolled diabetes type II A1c was 14%. He received diabetic education. He was placed on an insulin sliding scale with long-acting insulin in the hospital. There is concern for noncompliance with insulin so the patient will continue his home metformin regimen. We will add glipizide 5 mg daily. He will need follow-up with his primary care doctor. He will need to check his blood sugar closely at home regularly. We will provide a prescription for blood glucose meter, test strips and lancets. Neuropathy We increased gabapentin to 300 mg TID with improvement. Thrush The patient is status post Diflucan and nystatin swish and swallow. Deconditioning The pt worked with physical therapy and occupational therapy. He improved with ambulation. He will be discharged with home health care nursing. He will be referred for outpatient physical therapy. Hypokalemia HCTZ was discontinued. We repleted potassium and his level stabilized. Hypomagnesemia He will be discharged with magnesium oxide. Pt Condition on Discharge: Stable Discharge Disposition: Disch w/ Home Health Serv Discharge Time: > 30 minutes Discharge Instructions Follow up Referrals: Appointment for Follow Up PCP Follow-up - 1 Week PCP Follow-up Podiatry - [address] Khan [facility]/ with [facility] New Orders: Physical Therapy - 3-5 Days New Medications: Blood Glucose Monitoring W/Device (Blood Glucose Monitoring W/Device) 1 Kit Kit KIT .XX DIRECTED for Blood Sugar Management, #1 0 Refills Blood Glucose Test Strips (Blood Glucose Test Strips) Strips Strip EA .XX DIRECTED for Blood Sugar Management, #1 0 Refills Easy Touch Lancets 21G/Pr (Easy Touch Lancets 21G/Pr) 21 Gauge Mis BOX .XX DIRECTED for Blood Sugar Management, #1 0 Refills Glipizide (Glipizide) 5 Mg Tab 5 MG PO DAILY for Blood Sugar Management, #30 TAB 0 Refills Take 30 minutes before a meal Magnesium Oxide (Magnesium Oxide) 400 Mg Tab 400 MG PO DAILY for Nutritional Supplement, #30 TAB 0 Refills Walker Rolling/GetGo (Walker Rolling/GetGo) 1 Mis Mis EA .XX DIRECTED, #1 Levofloxacin (Levaquin) 750 Mg Tablet 750 MG PO DAILY@1100 for Infection, #6 TAB Lisinopril (Lisinopril) 10 Mg Tab 20 MG PO DAILY for Blood Pressure Management, #60 TAB Changed Medications: Gabapentin (Gabapentin) 300 Mg Cap 300 MG PO TID for Neuropathy, #90 CAP 0 Refills (Changed from: HS) Continued Medications: Metformin ER (Metformin ER) 1,000 Mg Natalia 1000 MG PO BID for Blood Sugar Management, TAB 0 Refills With evening meal Naproxen (Naproxen) 500 Mg Tab 500 MG PO BID, TAB 0 Refills Discontinued Medications: Azithromycin (Azithromycin) 500 Mg Tab 500 MG PO DAILY for Infection, TAB 0 Refills Hydrochlorothiazide (Hydrochlorothiazide) 12.5 Mg Tab 12.5 MG PO BID, TAB 0 Refills Lisinopril (Lisinopril) 10 Mg Tab 10 MG PO DAILY, TAB 0 Refills Oseltamivir (Tamiflu) 75 Mg Cap 75 MG PO BID for Mgmt Viral Infection, CAP 0 Refills Logan Fleming DO Jun 03, 2017 15:14
[2017-06-03] MEDS ORDERED: POTASSIUM CHLORIDE 20 MEQ CONTROLLED RELEASE TAB PO ONE (15:15)
[2017-06-03] MEDS ORDERED: LANC1MIS (15:19)
[2017-06-03] MEDS ORDERED: BLOOD GLUCOSE M1 KIT (15:19)
[2017-06-03] MEDS ORDERED: BLOOD GLUCOSE T1 TES (15:19)
[2017-06-03] MEDS ORDERED: GLIP5TAB8 PO (15:19)
--- NOTE | 2017-06-03 15:31 | HHI.PR ---
Subjective Remarks The patient was feeling well and wanted to go home. He said he was willing to work with physical therapy. He had no acute complaints. Discussed with nursing and case management. Objective Vitals Vital Signs Date Time Temp Pulse Resp B/P (MAP) Pulse Ox O2 Delivery O2 Flow Rate FiO2 06/03/17 12:04 98.7 96 18 140/100 (113) 98 06/03/17 12:00 89 06/03/17 10:12 98 06/03/17 08:02 99.0 81 18 146/70 (95) 98 06/03/17 08:00 Room Air 06/03/17 04:00 98.8 78 20 123/81 (95) 99 06/03/17 04:00 81 06/03/17 00:00 99.2 89 20 122/63 (82) 98 06/03/17 00:00 82 06/02/17 20:00 96 06/02/17 20:00 Room Air 06/02/17 20:00 99.0 98 20 117/64 (81) 98 06/02/17 19:45 98 21 06/02/17 16:00 103 06/02/17 15:53 98.9 103 18 121/72 (88) 99 I/O 06/02/17 06/02/17 06/02/17 06/03/17 06/03/17 06/03/17 07:00 15:00 23:00 07:00 15:00 23:00 Intake Total 1120 ml 640 ml 640 ml 360 ml Output Total 1450 ml 500 ml 200 ml 1080 ml Balance -330 ml 140 ml 440 ml -720 ml Intake Oral 120 ml 240 ml 240 ml 360 ml IV Total 1000 ml 400 ml 400 ml Output Urine Total 1450 ml 500 ml 200 ml 1080 ml # Bowel Movements 1 Result Diagram: 06/03/17 0720 06/02/17 0620 Imaging Last Impressions Abdomen/Pelvis CT 05/31/17 0000 Signed Impressions: Service Date/Time: Wednesday, May 31, 2017 19:58 - CONCLUSION: 1. Tiny bilateral pleural effusions. 2. Enlarged liver with mild diffuse fatty infiltration. 3. Enlarged prostate. 4. Degenerative changes and scoliosis of the thoracolumbar spine. 5. Degenerative changes involving the hip joints bilaterally. Salty Queen MD Foot X-Ray 05/30/17 0000 Signed Impressions: Service Date/Time: Tuesday, May 30, 2017 21:16 - CONCLUSION: 1. No acute fracture or dislocation. 2. Mild degenerative changes involving first metatarsophalangeal joint. 3. Plantar and Achilles calcaneal spurring. 4. Calcification involving the expected region of the plantar fascia adjacent to the plantar spur. Salty Queen MD Head CT 05/29/17 1202 Signed Impressions: Service Date/Time: Monday, May 29, 2017 12:44 - CONCLUSION: 1. No acute intracranial abnormality is seen. 2. Age-related atrophy. Ghassan Pearson MD Chest X-Ray 05/29/17 1202 Signed Impressions: Service Date/Time: Monday, May 29, 2017 12:12 - CONCLUSION: No acute disease. Ghassan Pearson MD Objective Remarks GENERAL: No acute distress. SKIN: No rashes, ecchymoses or lesions. Cool and dry. HEAD: Atraumatic. Normocephalic. No temporal or scalp tenderness. EYES: Pupils equal round and reactive. Extraocular motions intact. No scleral icterus. No injection or drainage. ENT: Nose without bleeding, purulent drainage or septal hematoma. Throat without erythema, tonsillar hypertrophy or exudate. Uvula midline. Airway patent. Poor dentition, oral thrush on tongue NECK: Trachea midline. No JVD or lymphadenopathy. Supple, nontender, no meningeal signs. CARDIOVASCULAR: Regular rate and rhythm without murmurs, gallops, or rubs. S1 and S2 no S3 or S4 RESPIRATORY: Clear to auscultation. Breath sounds equal bilaterally. No wheezes , rales, Few scattered rhonchi GASTROINTESTINAL: Abdomen soft, non-tender, nondistended. No hepato-splenomegaly , or palpable masses. No guarding. Obese MUSCULOSKELETAL: Extremities without clubbing, cyanosis, +1 lower extremity edema. NEUROLOGICAL: Awake and alert. PSYCH: Mood and affect appropriate. Procedures None Medications and IVs Current Medications Medications (Trade) Dose Ordered Sig/Jackie Route Start Time Stop Time Status Last Admin (Neurontin) 300 mg HS PO 05/29/17 21:00 06/02/17 20:56 (Naprosyn) 500 mg BID PO 05/29/17 21:00 06/03/17 08:38 (D50w (Vial) Inj) 50 ml UNSCH PRN IV PUSH 1/29/18 18:15 (Glucagon Inj) 1 mg UNSCH PRN OTHER 05/29/17 18:15 (NovoLOG SUPPLEMENTAL SCALE) 1 ACHS SLIDING SCALE SQ 05/29/17 21:00 06/03/17 12:23 (Catapres) 0.1 mg Q4H PRN PO 05/29/17 18:15 06/03/17 12:23 (NS Flush) 2 ml UNSCH PRN IV FLUSH 05/29/17 18:15 (NS Flush) 2 ml BID IV FLUSH 05/29/17 21:00 06/03/17 08:38 (Tylenol) 650 mg Q4H PRN PO 05/29/17 18:15 (Zofran Inj) 4 mg Q6H PRN IVP 05/29/17 18:15 (Reglan Inj) 5 mg Q6H PRN IV PUSH 05/29/17 18:15 (Ambien) 5 mg HS PRN PO 05/29/17 18:15 (Lovenox Inj) 40 mg Q24H SQ 05/29/17 20:00 06/02/17 20:58 (Tylenol) 650 mg Q6H PRN PO 05/29/17 18:15 (Percocet 5-325 Mg) 1 tab Q6H PRN PO 05/29/17 18:15 (Percocet 10-325 Mg) 1 tab Q6H PRN PO 05/29/17 18:15 (Morphine Inj) 2 mg Q3H PRN IV PUSH 05/29/17 18:15 (Morphine Inj) 4 mg Q3H PRN IV PUSH 05/29/17 18:30 (Narcan Inj) 0.4 mg UNSCH PRN IV PUSH 05/29/17 18:15 (Alma Delia-Colace) 1 tab BID PO 05/29/17 21:00 06/03/17 08:38 (Milk Of Magnesia Liq) 30 ml Q12H PRN PO 05/29/17 18:15 (Senokot) 17.2 mg Q12H PRN PO 05/29/17 18:15 (Dulcolax Supp) 10 mg DAILY PRN RECTAL 05/29/17 18:15 (Lactulose Liq) 30 ml DAILY PRN PO 05/29/17 18:15 (Diflucan) 200 mg DAILY PO 05/29/17 18:30 06/03/17 08:38 (Mycostatin Liq) 5 ml QID SWISH-SWAL 05/29/17 21:00 06/03/17 12:23 (Duoneb Neb) 1 ampule Q4HR NEB PRN NEB 05/29/17 18:15 (Mucinex Er) 600 mg BID PO 05/29/17 21:00 06/03/17 08:38 (Theragran) 1 tab DAILY PO 05/29/17 18:30 06/03/17 08:38 (Vitamin B1) 100 mg DAILY PO 05/29/17 18:30 06/03/17 08:38 (Folate) 1 mg DAILY PO 05/29/17 18:30 06/03/17 08:38 (Vasotec Inj) 1.25 mg Q6H PRN IV PUSH 05/29/17 23:15 (Levemir Inj) 10 units DAILY SQ 06/01/17 09:00 06/03/17 08:39 (Levaquin) 750 mg DAILY@1100 PO 06/01/17 17:00 06/03/17 12:23 (Prinivil) 20 mg DAILY PO 06/03/17 09:00 06/03/17 08:38 A/P Problem List: (1) Thrush ICD Code: B37.0 - Candidal stomatitis Status: Acute (2) Sepsis ICD Code: A41.9 - Sepsis, unspecified organism Status: Acute (3) Altered mental status ICD Code: R41.82 - Altered mental status, unspecified Status: Acute (4) [place] of toe ICD Code: L84 - Corns and callosities Status: Chronic (5) Onychomycosis ICD Code: B35.1 - Tinea unguium Status: Chronic (6) Bacteremia ICD Code: R78.81 - Bacteremia (7) Type 2 diabetes mellitus with peripheral neuropathy ICD Code: E11.42 - Type 2 diabetes mellitus with diabetic polyneuropathy Status: Chronic Assessment and Plan Altered mental status Suspect secondary to infection. Improving. - continue on antibiotics per ID. Gram Negative Bacteremia Unsure of source. CT abdomen without obvious infection. - continue by mouth Levaquin per ID. Course to be completed 06/11/17. Hypertension Improved. - DC hydrochlorothiazide secondary to hypokalemia and hyponatremia. - Increase lisinopril to 20 mg by mouth daily and adjust as needed. Uncontrolled diabetes type II Glucose fluctuates. A1c 14%. - continue insulin sliding scale. - Patient likely going to be noncompliant with insulin. Resume metformin 1000 by mouth twice a day. Add glipizide 5 mg by mouth daily. Thrush The pt has been having some trouble eating. - continue on Diflucan and nystatin swish and swallow. Deconditioning The pt would like to walk more. - continue with physical therapy and occupational therapy. Home health care to be set up. - d/c Lisa. - Case management assisting with disposition. Hypokalemia Likely s/t hydrochlorothiazide. - replete and monitor. - DC hydrochlorothiazide. PPx: Lovenox Discharge Planning Discharge order in place. Awaiting home health care to be set up. Problem Qualifiers (1) Sepsis: Qualified Codes: A41.9 - Sepsis, unspecified organism (2) Altered mental status: Qualified Codes: R41.0 - Disorientation, unspecified Logan Fleming DO Jun 03, 2017 15:31
[2017-06-03] MEDS: metFORMIN HCL 500 MG TAB PO SCH (16:53)
[2017-06-03] MEDS: ENOXAPARIN SODIUM 40 MG/0.4 ML SYRINGE SQ SCH (21:39)
[2017-06-03] MEDS: GABAPENTIN 300 MG CAP PO SCH (21:39)
[2017-06-04] VITALS (13 sets, daily range): BP systolic 99–141; BP diastolic 58–81; PULSE 79–100; RESP 16–20; TEMP 98.1–98.8; O2SAT 93–97
[2017-06-04 07:13] LABS: HEMATOCRIT 31.6 % (39.0-51.0); MEAN CELL VOLUME 90.9 FL (80.0-100.0); MEAN CORPUSCULAR HEMOGLOBIN 31.6 PG (27.0-34.0); MEAN CORPUSCULAR HGB CONC 34.7 % (32.0-36.0); PLATELET COUNT 182 TH/MM3 (150-450); RED BLOOD COUNT 3.47 MIL/MM3 (4.50-5.90); RED CELL DISTRIBUTION WIDTH 14.3 % (11.6-17.2); WHITE BLOOD COUNT 12.5 TH/MM3 (4.0-11.0)
[2017-06-04 07:39] LABS: BICARBONATE 24.4 MEQ/L (21.0-32.0); CALCIUM 8.5 MG/DL (8.5-10.1); CREATININE 0.67 MG/DL (0.60-1.30); MAGNESIUM 1.3 MG/DL (1.5-2.5)
[2017-06-04] MEDS: INSULIN ASPART SUPPLEMENTAL SCALE SQ SCH ×4 (08:00→20:37)
[2017-06-04] MEDS: SODIUM CHLORIDE 0.9% FLUSH 10 ML FLUSH IV FLUSH SCH ×2 (09:00→20:36)
[2017-06-04] MEDS: guaiFENesin E.R. 600 MG TAB PO SCH ×2 (09:13→20:36)
[2017-06-04] MEDS: NAPROXEN 500 MG TAB PO SCH ×2 (09:13→20:36)
[2017-06-04] MEDS: FOLIC ACID 1 MG TAB PO SCH (09:13)
[2017-06-04] MEDS: THIAMINE HCL 100 MG TAB PO SCH (09:13)
[2017-06-04] MEDS: metFORMIN HCL 500 MG TAB PO SCH ×2 (09:14→18:17)
[2017-06-04] MEDS: FLUCONAZOLE 200 MG TAB PO SCH (09:14)
[2017-06-04] MEDS: MULTIVITAMIN TAB PO SCH (09:14)
[2017-06-04] MEDS: DOCUSATE SODIUM 50 MG/SENNA 8.6 MG TAB PO SCH ×2 (09:14→20:37)
[2017-06-04] MEDS: LISINOPRIL 10 MG TAB PO SCH (09:14)
[2017-06-04] MEDS: glipiZIDE 5 MG TAB PO SCH (09:14)
[2017-06-04] MEDS: NYSTATIN SUSP 500,000 U/5 ML CUP SWISH-SWAL SCH ×4 (09:15→20:36)
[2017-06-04] MEDS: LEVOFLOXACIN 750 MG TAB PO SCH (12:01)
[2017-06-04] MEDS ORDERED: MAGNESIUM SULFATE 1 GM PREMIX 100 ML IV SCH (13:45)
--- NOTE | 2017-06-04 13:46 | HHI.PR ---
Subjective Remarks The patient complained of cold, tingling feet. Otherwise had no acute complaints. He wanted to go home. Discussed with nursing. Objective Vitals Vital Signs Date Time Temp Pulse Resp B/P (MAP) Pulse Ox O2 Delivery O2 Flow Rate FiO2 06/04/17 08:50 97 21 06/04/17 08:00 98.7 82 18 135/75 (95) 97 06/04/17 04:05 81 06/04/17 04:00 98.1 82 16 111/62 (78) 95 06/04/17 00:01 84 06/04/17 00:00 98.3 84 16 104/63 (77) 96 06/03/17 23:21 17 06/03/17 21:45 Room Air 06/03/17 20:05 90 06/03/17 20:00 98.3 86 16 127/72 (90) 99 06/03/17 16:00 97.9 94 16 106/64 (78) 98 06/03/17 16:00 93 I/O 06/03/17 06/03/17 06/03/17 06/04/17 06/04/17 06/04/17 07:00 15:00 23:00 07:00 15:00 23:00 Intake Total 360 ml 600 ml 950 ml Output Total 1080 ml 800 ml 640 ml 450 ml Balance -720 ml -200 ml 310 ml -450 ml Intake Oral 360 ml 600 ml 950 ml Output Urine Total 1080 ml 800 ml 640 ml 450 ml # Bowel Movements 0 0 Result Diagram: 06/04/17 0540 06/04/17 0540 Imaging Last Impressions Abdomen/Pelvis CT 05/31/17 0000 Signed Impressions: Service Date/Time: Wednesday, May 31, 2017 19:58 - CONCLUSION: 1. Tiny bilateral pleural effusions. 2. Enlarged liver with mild diffuse fatty infiltration. 3. Enlarged prostate. 4. Degenerative changes and scoliosis of the thoracolumbar spine. 5. Degenerative changes involving the hip joints bilaterally. Salty Queen MD Foot X-Ray 05/30/17 0000 Signed Impressions: Service Date/Time: Tuesday, May 30, 2017 21:16 - CONCLUSION: 1. No acute fracture or dislocation. 2. Mild degenerative changes involving first metatarsophalangeal joint. 3. Plantar and Achilles calcaneal spurring. 4. Calcification involving the expected region of the plantar fascia adjacent to the plantar spur. Salty Queen MD Head CT 05/29/17 1202 Signed Impressions: Service Date/Time: Monday, May 29, 2017 12:44 - CONCLUSION: 1. No acute intracranial abnormality is seen. 2. Age-related atrophy. Ghassan Pearson MD Chest X-Ray 05/29/17 1202 Signed Impressions: Service Date/Time: Monday, May 29, 2017 12:12 - CONCLUSION: No acute disease. Ghassan Pearson MD Objective Remarks GENERAL: No acute distress. SKIN: No rashes, ecchymoses or lesions. Cool and dry. HEAD: Atraumatic. Normocephalic. No temporal or scalp tenderness. EYES: Pupils equal round and reactive. Extraocular motions intact. No scleral icterus. No injection or drainage. ENT: Nose without bleeding, purulent drainage or septal hematoma. Throat without erythema, tonsillar hypertrophy or exudate. Uvula midline. Airway patent. Poor dentition, oral thrush on tongue NECK: Trachea midline. No JVD or lymphadenopathy. Supple, nontender, no meningeal signs. CARDIOVASCULAR: Regular rate and rhythm without murmurs, gallops, or rubs. S1 and S2 no S3 or S4 RESPIRATORY: Clear to auscultation. Breath sounds equal bilaterally. No wheezes , rales, Few scattered rhonchi GASTROINTESTINAL: Abdomen soft, non-tender, nondistended. No hepato-splenomegaly , or palpable masses. No guarding. Obese MUSCULOSKELETAL: Extremities without clubbing, cyanosis, no edema. NEUROLOGICAL: Awake and alert. PSYCH: Mood and affect appropriate. Procedures None Medications and IVs Current Medications Medications (Trade) Dose Ordered Sig/Jackie Route Start Time Stop Time Status Last Admin (Neurontin) 300 mg HS PO 05/29/17 21:00 06/03/17 21:39 (Naprosyn) 500 mg BID PO 05/29/17 21:00 06/04/17 09:13 (D50w (Vial) Inj) 50 ml UNSCH PRN IV PUSH 05/29/17 18:15 (Glucagon Inj) 1 mg UNSCH PRN OTHER 05/29/17 18:15 (NovoLOG SUPPLEMENTAL SCALE) 1 ACHS SLIDING SCALE SQ 05/29/17 21:00 06/04/17 12:01 (Catapres) 0.1 mg Q4H PRN PO 05/29/17 18:15 06/03/17 12:23 (NS Flush) 2 ml UNSCH PRN IV FLUSH 05/29/17 18:15 (NS Flush) 2 ml BID IV FLUSH 05/29/17 21:00 06/03/17 08:38 (Tylenol) 650 mg Q4H PRN PO 05/29/17 18:15 (Zofran Inj) 4 mg Q6H PRN IVP 05/29/17 18:15 (Reglan Inj) 5 mg Q6H PRN IV PUSH 05/29/17 18:15 (Ambien) 5 mg HS PRN PO 05/29/17 18:15 (Lovenox Inj) 40 mg Q24H SQ 05/29/17 20:00 06/03/17 21:39 (Tylenol) 650 mg Q6H PRN PO 05/29/17 18:15 (Percocet 5-325 Mg) 1 tab Q6H PRN PO 05/29/17 18:15 (Percocet 10-325 Mg) 1 tab Q6H PRN PO 05/29/17 18:15 (Morphine Inj) 2 mg Q3H PRN IV PUSH 05/29/17 18:15 (Morphine Inj) 4 mg Q3H PRN IV PUSH 05/29/17 18:30 (Narcan Inj) 0.4 mg UNSCH PRN IV PUSH 05/29/17 18:15 (Alma Delia-Colace) 1 tab BID PO 05/29/17 21:00 06/04/17 09:14 (Milk Of Magnesia Liq) 30 ml Q12H PRN PO 05/29/17 18:15 (Senokot) 17.2 mg Q12H PRN PO 05/29/17 18:15 (Dulcolax Supp) 10 mg DAILY PRN RECTAL 05/29/17 18:15 (Lactulose Liq) 30 ml DAILY PRN PO 05/29/17 18:15 (Diflucan) 200 mg DAILY PO 05/29/17 18:30 06/04/17 09:14 (Mycostatin Liq) 5 ml QID SWISH-SWAL 05/29/17 21:00 06/04/17 12:00 (Duoneb Neb) 1 ampule Q4HR NEB PRN NEB 05/29/17 18:15 (Mucinex Er) 600 mg BID PO 05/29/17 21:00 06/04/17 09:13 (Theragran) 1 tab DAILY PO 05/29/17 18:30 06/04/17 09:14 (Vitamin B1) 100 mg DAILY PO 05/29/17 18:30 06/04/17 09:13 (Folate) 1 mg DAILY PO 05/29/17 18:30 06/04/17 09:13 (Vasotec Inj) 1.25 mg Q6H PRN IV PUSH 05/29/17 23:15 (Levaquin) 750 mg DAILY@1100 PO 06/01/17 17:00 06/04/17 12:01 (Prinivil) 20 mg DAILY PO 06/03/17 09:00 06/04/17 09:14 (Glucophage) 1,000 mg BIDPC PO 06/03/17 18:00 06/04/17 09:14 (Glucotrol) 5 mg DAILYAC PO 06/04/17 08:00 06/04/17 09:14 Magnesium Sulfate/ Dextrose 100 ml @ 100 mls/hr Q1H IV 06/04/17 13:45 06/04/17 16:44 A/P Problem List: (1) Thrush ICD Code: B37.0 - Candidal stomatitis Status: Acute (2) Sepsis ICD Code: A41.9 - Sepsis, unspecified organism Status: Acute (3) Altered mental status ICD Code: R41.82 - Altered mental status, unspecified Status: Acute (4) [place] of toe ICD Code: L84 - Corns and callosities Status: Chronic (5) Onychomycosis ICD Code: B35.1 - Tinea unguium Status: Chronic (6) Bacteremia ICD Code: R78.81 - Bacteremia (7) Type 2 diabetes mellitus with peripheral neuropathy ICD Code: E11.42 - Type 2 diabetes mellitus with diabetic polyneuropathy Status: Chronic Assessment and Plan Altered mental status Suspect secondary to bacteremia. Improving. - continue on antibiotics per ID. Gram Negative Bacteremia Unsure of source. CT abdomen without obvious infection. - continue by mouth Levaquin per ID. Course to be completed 06/11/17. Hypertension Well controlled at this time. - DC hydrochlorothiazide secondary to hypokalemia and hyponatremia. - Increase lisinopril to 20 mg by mouth daily and adjust as needed. Uncontrolled diabetes type II Glucose fluctuates. A1c 14%. - continue insulin sliding scale. - Patient likely going to be noncompliant with insulin. Resume metformin 1000 by mouth twice a day. Add glipizide 5 mg by mouth daily. Well controlled at this time. Neuropathy The pt complains of cold and tingling feet. Exam reveals warm, well perfused lower extremities. - increase gabapentin to 300 mg TID and monitor. Thrush The pt has been having some trouble eating. - continue on Diflucan and nystatin swish and swallow. Deconditioning The pt would like to walk more. - continue with physical therapy and occupational therapy. Home health care to be set up. - d/c Lisa. - Case management assisting with disposition. Hypokalemia Likely s/t hydrochlorothiazide. - replete and monitor. - DC hydrochlorothiazide. Hypomagnesemia Mg level 1.3. - replete with mg sulfate. PPx: Lovenox Discharge Planning Discharge order in place. Awaiting home health care to be set up. Problem Qualifiers (1) Sepsis: Qualified Codes: A41.9 - Sepsis, unspecified organism (2) Altered mental status: Qualified Codes: R41.0 - Disorientation, unspecified Logan Fleming DO Jun 04, 2017 13:46
[2017-06-04] MEDS: GABAPENTIN 300 MG CAP PO SCH ×2 (14:18→18:17)
[2017-06-04] MEDS: MAGNESIUM OXIDE 400 MG TAB PO SCH ×2 (14:19→20:36)
[2017-06-04] MEDS: ENOXAPARIN SODIUM 40 MG/0.4 ML SYRINGE SQ SCH (20:36)
[2017-06-05] VITALS: BP 118/74; PULSE 89; RESP 20; TEMP 99; O2SAT 97
[2017-06-05 03:42] VITALS: PULSE 82
[2017-06-05 04:00] VITALS: BP 133/81; PULSE 89; RESP 20; TEMP 98.7; O2SAT 96
[2017-06-05 08:00] VITALS: BP 136/76; PULSE 88; RESP 20; TEMP 98.3; O2SAT 96
[2017-06-05] MEDS: guaiFENesin E.R. 600 MG TAB PO SCH (08:22)
[2017-06-05] MEDS: metFORMIN HCL 500 MG TAB PO SCH (08:23)
[2017-06-05] MEDS: DOCUSATE SODIUM 50 MG/SENNA 8.6 MG TAB PO SCH (08:23)
[2017-06-05] MEDS: MAGNESIUM OXIDE 400 MG TAB PO SCH (08:23)
[2017-06-05] MEDS: THIAMINE HCL 100 MG TAB PO SCH (08:23)
[2017-06-05] MEDS: glipiZIDE 5 MG TAB PO SCH (08:23)
[2017-06-05] MEDS: LISINOPRIL 10 MG TAB PO SCH (08:23)
[2017-06-05] MEDS: FLUCONAZOLE 200 MG TAB PO SCH (08:23)
[2017-06-05] MEDS: GABAPENTIN 300 MG CAP PO SCH ×2 (08:24→12:00)
[2017-06-05] MEDS: NYSTATIN SUSP 500,000 U/5 ML CUP SWISH-SWAL SCH ×2 (08:24→12:00)
[2017-06-05] MEDS: NAPROXEN 500 MG TAB PO SCH (08:24)
[2017-06-05] MEDS: SODIUM CHLORIDE 0.9% FLUSH 10 ML FLUSH IV FLUSH SCH (08:24)
[2017-06-05] MEDS: FOLIC ACID 1 MG TAB PO SCH (08:24)
[2017-06-05] MEDS: MULTIVITAMIN TAB PO SCH (08:24)
[2017-06-05] MEDS: INSULIN ASPART SUPPLEMENTAL SCALE SQ SCH ×2 (08:35→12:01)
[2017-06-05 08:50] LABS: HEMATOCRIT 30.1 % (39.0-51.0); HEMOGLOBIN 10.5 GM/DL (13.0-17.0); MEAN CELL VOLUME 89.4 FL (80.0-100.0); MEAN CORPUSCULAR HEMOGLOBIN 31.4 PG (27.0-34.0); MEAN CORPUSCULAR HGB CONC 35.1 % (32.0-36.0); MEAN PLATELET VOLUME 9.4 FL (7.0-11.0); PLATELET COUNT 216 TH/MM3 (150-450); RED BLOOD COUNT 3.36 MIL/MM3 (4.50-5.90); RED CELL DISTRIBUTION WIDTH 13.8 % (11.6-17.2); WHITE BLOOD COUNT 10.8 TH/MM3 (4.0-11.0)
[2017-06-05 09:19] LABS: BICARBONATE 25.3 MEQ/L (21.0-32.0); CALCIUM 8.8 MG/DL (8.5-10.1); CREATININE 0.77 MG/DL (0.60-1.30); MAGNESIUM 1.5 MG/DL (1.5-2.5)
[2017-06-05] MEDS: LEVOFLOXACIN 750 MG TAB PO SCH (10:10)
[2017-06-05] MEDS ORDERED: GABA300C5 PO (10:44)
[2017-06-05] MEDS ORDERED: LEVA750T9 PO (10:44)
[2017-06-05] MEDS ORDERED: MAGN400T2 PO (10:48)
[2017-06-05 12:00] VITALS: BP 129/74; PULSE 108; RESP 20; TEMP 98.5; O2SAT 97
== END 2017-06-05 13:08 | disposition home health service (06) | DRG 871 ==
LOC: NEPC 11:42 → NEDA 15:58 → N04B 20:22
PROVIDERS: ADMIT Hospitalist; ATTEND Hospitalist
DX: A41.9 Sepsis, unspecified organism (principal); G93.41 Metabolic encephalopathy; E11.52 Type 2 diabetes mellitus with diabetic peripheral angiopathy with gangrene; E11.42 Type 2 diabetes mellitus with diabetic polyneuropathy; E11.65 Type 2 diabetes mellitus with hyperglycemia; Z79.84 Long term (current) use of oral hypoglycemic drugs; E87.5 Hyperkalemia; B37.0 Candidal stomatitis; B35.1 Tinea unguium; E83.42 Hypomagnesemia; L84 Corns and callosities; J11.1 Influenza due to unidentified influenza virus with other respiratory manifestations; I10 Essential (primary) hypertension; E87.6 Hypokalemia; Z91.11 Patient's noncompliance with dietary regimen; Z91.14 Patient's other noncompliance with medication regimen; M16.0 Bilateral primary osteoarthritis of hip; K08.89 Other specified disorders of teeth and supporting structures
CPT/HCPCS: 51702; 70450; 71045; 73620; 74177; 80048; 80053; 80074; 81001; 82010; 82550; 82805; 82948; 83036; 83605; 83690; 83735; 84100; 84439; 84443; 84484; 85025; 85027; 85610; 85730; 86140; 86703; 87040; 87086; 87186; 87205; 87207; 87328; 87329; 87425; 87493; 87506; 93005; 93306; 94150; 96361; 96365; 96366; 96367; 96375; J0456; J0692; J1650; J1815; J1885; J2270; J3370; J7030; J7040; J7050; Q9963; Q9967

== ENCOUNTER 2017-06-17 10:15 | Inpatient (IN) | payer OTHER ==
[~2017-06-17] VITALS: Ht 175.3 cm; Wt 91.2 kg
[~2017-06-17 10:15] MED LIST changes: +BLOOD GLUCOSE M1 KIT; +BLOOD GLUCOSE T1 TES; +GABA300C5 PO; +GETGO ROLLING W1 MI1; +GLIP5TAB8 PO; -GLUCTAB PO; -HYDR12.57 PO; +LANC1MIS; +LEVA750T9 PO; -LEVO.025 PO; -LISI-360 PO; +LISI10TA3 PO; +MAGN400T2 PO; +METF-382 PO; +NAPR500T2 PO; -TRAM50TA PO
[2017-06-17 10:16] VITALS: BP 146/86; PULSE 131; RESP 14; TEMP 98.4; O2SAT 96
[2017-06-17 10:34] VITALS: BP 130/76; PULSE 118; RESP 22; TEMP 98.3; O2SAT 97
[2017-06-17] MEDS ORDERED: LISI10TA3 PO (11:06)
[2017-06-17] MEDS ORDERED: HYDR-3288 PO (11:06)
[2017-06-17] MEDS ORDERED: NEUR300C PO (11:06)
[2017-06-17] MEDS ORDERED: HYDR12.57 PO (11:06)
[2017-06-17] MEDS ORDERED: AMOX500C PO (11:06)
[2017-06-17] MEDS ORDERED: SODIUM CHLOR 0.9% 1000 ML INJ 1,000 ML IV ONE (11:30)
[2017-06-17] MEDS ORDERED: CLINDAMYCIN 600 MG/NS PREMIX 50 ML IV ONE (11:30)
--- NOTE | 2017-06-17 11:44 | RADRPT ---
EXAM DATE/TIME: 06/17/2017 11:30 [place] COMPARISON: No previous studies available for comparison. INDICATIONS : Swelling for one day. No trauma. MEDICAL HISTORY : Hypertension. Diabetes mellitus type 1. SURGICAL HISTORY : None. ENCOUNTER: Initial ACUITY: 1 day PAIN SCORE: 0/10 LOCATION: Right foot. FINDINGS: Three view examination of the right foot demonstrates no soft tissue swelling, dislocation, or fractu re. The tarsal bones appear intact. There some mild degenerative changes at the first metatarsophal angeal joint. There is a prominent heel spur on the plantar surface of the calcaneus. There are mild degenerative changes in the tarsal bones. The calcaneus is intact. Bony mineralization is normal. CONCLUSION: 1. No acute fracture or joint dislocation. 2. Mild primary degenerative changes of the foot. 3. Prominent heel spur. Marcus Hernandez MD on June 17, 2017 at 11:41 Board Certified Radiologist. This report was verified electronically.
--- NOTE | 2017-06-17 11:44 | PD ---
HPI Chief Complaint: Skin Problem Time Seen by Provider: 11:07 Travel History International Travel<30 days: No Contact w/Intl Traveler<30days: No Traveled to known affect area: No History of Present Illness HPI 61-year-old male that presents to the ED for evaluation of right third toe swelling and possible infection. Patient has a history of diabetes and history of sepsis recently. He was released from the hospital about a week ago for sepsis. He has been doing well since been discharged and he apparently has an appointment on Monday with senior mobile web developer to address his feet. Patient apparently recently had his tooth pulled out. Now to regular senior mobile web developer evaluation to fix his feet. Patient has a history of onychomycosis. Per family and patient his been having swelling and some discomfort on the toe since this morning admitted a couple of days. Patient himself states that he doesn't actually look at his feet. He has swelling to the third toe. He states that his pain is 4 out of 10. Denies any fevers chills or sweats. Denies any injuries. No other medical issues. States that he is compliant with his medications. He is somewhat of a poor historian and most of the history is obtained from family member. PFSH Past Medical History Diabetes: Yes Patient Takes Glucophage: Yes Diminished Hearing: No Hypertension: Yes Tetanus Vaccination: Unknown Influenza Vaccination: No Past Surgical History Surgical History: No Previous Surgery Social History Alcohol Use: No Tobacco Use: No Substance Use: No Allergies-Medications (Allergen,Severity, Reaction): Coded Allergies: aspirin (Unverified Allergy, Unknown, 06/17/17) Reported Meds & Prescriptions Reported Meds & Active Scripts Active Magnesium Oxide 400 Mg Tab 400 Mg PO DAILY Glipizide 5 Mg Tab 5 Mg PO DAILY Take 30 minutes before a meal Reported Lisinopril 10 Mg Tab 10 Mg PO DAILY Hydrochlorothiazide 12.5 Mg Cap 12.5 Mg PO DAILY Neurontin (Gabapentin) 300 Mg Cap 300 Mg PO HS [place] (Hydrocodone-Acetaminophen) 7.5-325 mg Tab 1 Tab PO Q4-6H PRN Amoxicillin 500 Mg Cap 500 Mg PO Q6HR Until Finished Naproxen 500 Mg Tab 500 Mg PO BID Metformin ER (Metformin HCl) 1,000 Mg Natalia 1,000 Mg PO BID Review of Systems Except as stated in HPI: all other systems reviewed are Neg Physical Exam Narrative GENERAL: SKIN: Warm and dry. HEAD: Atraumatic. Normocephalic. EYES: Pupils equal and round. No scleral icterus. No injection or drainage. ENT: No nasal bleeding or discharge. Mucous membranes pink and moist. NECK: Trachea midline. No JVD. CARDIOVASCULAR: Regular rate and rhythm. RESPIRATORY: No accessory muscle use. Clear to auscultation. Breath sounds equal bilaterally. GASTROINTESTINAL: Abdomen soft, non-tender, nondistended. Hepatic and splenic margins not palpable. MUSCULOSKELETAL: Extremities without clubbing, cyanosis, or edema. No obvious deformities. Full range of motion of the upper and lower extremities bilaterally. 2+ pulses bilaterally in the lower feet. Patient has soft tissue swelling of the third toe of the right foot. Slightly tender to touch. Appears to be blistery and possible erythematous. Went to the touch. No obvious sign of trauma or purulence. NEUROLOGICAL: Awake and alert. No obvious cranial nerve deficits. Motor grossly within normal limits. Five out of 5 muscle strength in the arms and legs. Normal speech. PSYCHIATRIC: Appropriate mood and affect; insight and judgment normal. Data Data Last Documented VS Vital Signs Date Time Temp Pulse Resp B/P (MAP) Pulse Ox O2 Delivery O2 Flow Rate FiO2 06/17/17 13:44 95 19 158/90 (112) 97 Room Air 06/17/17 10:34 98.3 Orders Orders Complete Blood Count With Diff (06/17/17 11:18) Basic Metabolic Panel (Bmp) (06/17/17 11:18) Blood Culture (06/17/17 11:18) C-Reactive Protein (Crp) (06/17/17 11:18) W[place]gren Sedimentation Rate (06/17/17 11:18) Magnesium (Mg) (06/17/17 11:18) Iv Access Insert/Monitor (06/17/17 11:18) Foot, Complete ([id number]) (06/17/17 ) Clindamycin 600 Mg/Ns Premix (Cleocin 60 (06/17/17 11:30) Sodium Chlor 0.9% 1000 Ml Inj (Ns 1000 M (06/17/17 11:30) Piperacil-Tazo 3.375 Gm Premix (Zosyn 3. (06/17/17 13:15) Vancomycin Inj (Vancomycin Inj) (06/17/17 13:15) Admit Order (Ed Use Only) (06/17/17 13:50) Labs Laboratory Tests Test 06/17/17 11:25 White Blood Count 11.6 TH/MM3 Red Blood Count 3.10 MIL/MM3 Hemoglobin 9.8 GM/DL Hematocrit 28.5 % Mean Corpuscular Volume 92.0 FL Mean Corpuscular Hemoglobin 31.7 PG Mean Corpuscular Hemoglobin Concent 34.5 % Red Cell Distribution Width 14.3 % Platelet Count 232 TH/MM3 Mean Platelet Volume 10.0 FL Neutrophils (%) (Auto) 58.2 % Lymphocytes (%) (Auto) 25.9 % Monocytes (%) (Auto) 10.7 % Eosinophils (%) (Auto) 4.4 % Basophils (%) (Auto) 0.8 % Neutrophils # (Auto) 6.8 TH/MM3 Lymphocytes # (Auto) 3.0 TH/MM3 Monocytes # (Auto) 1.2 TH/MM3 Eosinophils # (Auto) 0.5 TH/MM3 Basophils # (Auto) 0.1 TH/MM3 CBC Comment DIFF FINAL Differential Comment Erythrocyte Sedimentation Rate GREATER THAN 140 mm/hr Blood Urea Nitrogen 12 MG/DL Creatinine 0.78 MG/DL Random Glucose 83 MG/DL Calcium Level 9.6 MG/DL Magnesium Level 1.4 MG/DL Sodium Level 134 MEQ/L Potassium Level 4.3 MEQ/L Chloride Level 100 MEQ/L Carbon Dioxide Level 24.3 MEQ/L Anion Gap 10 MEQ/L Estimat Glomerular Filtration Rate 123 ML/MIN C-Reactive Protein 7.20 MG/DL MDM Medical Decision Making Medical Screen Exam Complete: Yes Emergency Medical Condition: Yes Medical Record Reviewed: Yes Interpretation(s) CBC & BMP Diagram 06/17/17 11:25 Calcium Level 9.6, Magnesium Level 1.4 L CRP elevated in the 7s ESR highly elevated Last Impressions Foot X-Ray 06/17/17 0000 Signed Impressions: Service Date/Time: Saturday, June 17, 2017 11:30 - CONCLUSION: 1. No acute fracture or joint dislocation. 2. Mild primary degenerative changes of the foot. 3. Prominent heel spur. Marcus Hernandez MD Differential Diagnosis Cellulitis versus osteomyelitis versus toe infection versus sepsis Narrative Course 61-year-old male that presents to the ED for evaluation of right third to swelling and pain. Patient was properly examined and was found to have signs and symptoms which appear to be consistent with possible early infection. Patient does have significant history of diabetes. Labs and imaging were ordered. Labs and imaging showed 11 as well as a count, CRP and ESR. There is definite concern for possible osteomyelitis of the toe. I recommend admission for IV antibiotics as well as podiatry consultation. Patient and family agree with this. BRENDA was paged and Dr Guerra agrees to admission. Diagnosis Primary Impression: Toe infection Additional Impressions: Osteomyelitis Qualified Codes: M86.9 - Osteomyelitis, unspecified Type 2 diabetes mellitus with peripheral neuropathy Admitting Information Admitting Physician Requests: Admit Javon Reese Jun 17, 2017 11:44
[2017-06-17 12:02] LABS: AUTOMATED NEUTROPHIL # 6.8 TH/MM3 (1.8-7.7); BASOPHIL # 0.1 TH/MM3 (0-0.2); BASOPHIL % 0.8 % (0.0-2.0); EOSINOPHIL # 0.5 TH/MM3 (0-0.4); EOSINOPHIL % 4.4 % (0.0-4.0); HEMATOCRIT 28.5 % (39.0-51.0); HEMOGLOBIN 9.8 GM/DL (13.0-17.0); LYMPH % 25.9 % (9.0-44.0); MEAN CORPUSCULAR HEMOGLOBIN 31.7 PG (27.0-34.0); MEAN CORPUSCULAR HGB CONC 34.5 % (32.0-36.0); MONO % 10.7 % (0.0-8.0); MONOCYTE # 1.2 TH/MM3 (0-0.9); NEUT % 58.2 % (16.0-70.0); PLATELET COUNT 232 TH/MM3 (150-450); RED CELL DISTRIBUTION WIDTH 14.3 % (11.6-17.2); WHITE BLOOD COUNT 11.6 TH/MM3 (4.0-11.0)
[2017-06-17 12:20] LABS: C-REACTIVE PROTEIN 7.2 MG/DL (0.00-0.30)
[2017-06-17 12:54] LABS: BICARBONATE 24.3 MEQ/L (21.0-32.0); CALCIUM 9.6 MG/DL (8.5-10.1); CREATININE 0.78 MG/DL (0.60-1.30); MAGNESIUM 1.4 MG/DL (1.5-2.5)
[2017-06-17] MEDS ORDERED: VANCOMYCIN INJ 1,000 MG in SODIUM CHLOR 0.9% 250 ML INJ 250 ML IV ONE (13:15)
[2017-06-17] MEDS ORDERED: PIPERACIL-TAZO 3.375 GM PREMIX 50 ML IV ONE (13:15)
[2017-06-17 13:44] VITALS: BP 158/90; PULSE 95; RESP 19; O2SAT 97
[2017-06-17] MEDS ORDERED: ACETAMINOPHEN/HYDROcodone 325 MG/5 MG TAB PO PRN (14:15)
[2017-06-17] MEDS ORDERED: ACETAMINOPHEN 325 MG TAB PO PRN ×2 (14:15)
[2017-06-17] MEDS ORDERED: SODIUM CHLORIDE 0.9% FLUSH 10 ML FLUSH IV FLUSH PRN (14:15)
[2017-06-17] MEDS ORDERED: NALOXONE HCL 0.4 MG/ML AMP IV PUSH PRN (14:15)
[2017-06-17] MEDS: LISINOPRIL 20 MG TAB PO SCH (14:42)
[2017-06-17 15:00] VITALS: BP 156/82; PULSE 76; RESP 18; TEMP 98.1; O2SAT 97
--- NOTE | 2017-06-17 15:38 | HHI.HP ---
[facility] Julia Ramey MD Admission Diagnosis acute right 3rd toe infection, osteomyelitis Diagnoses: Chief Complaint: Swollen toe Travel History International Travel<30 Days: No Contact w/Intl Traveler <30 Da: No Traveled to Known Affected Are: No History of Present Illness The patient is a 61-year-old male with past medical history of diabetes and hypertension who was recently discharged from the hospital who is presenting to the hospital with a swollen toe. The patient said that everything was going well but this morning he noticed his right middle toe was very swollen. He denied any pain in the area. He says he has been able to ambulate with it. He denies any fevers. He says he was supposed to see a computer aided design operator sometime soon. He decided to come to the hospital as he is a diabetic and did not want to take any chances. The patient says that he got his teeth pulled on and required his dentures yesterday. He said he is still on antibiotics for that. He has not been able to check his blood sugar at home recently because he needed a new machine. Discussed with nursing at the bedside. Review of Systems Except as stated in HPI: all other systems reviewed are Neg Past Family Social History Past Medical History Diabetes Hypertension Past Surgical History The patient denies any surgery Allergies: Coded Allergies: aspirin (Unverified Allergy, Unknown, 06/17/17) Active Ordered Medications Current Medications Medications (Trade) Dose Ordered Sig/Jackie Route Start Time Stop Time Status Last Admin (Prinivil) 20 mg DAILY PO 06/17/17 14:15 06/17/17 14:42 (Neurontin) 300 mg TID PO 06/17/17 18:00 (Mag-Ox) 400 mg DAILY PO 06/18/17 09:00 (NovoLOG SUPPLEMENTAL SCALE) 1 ACHS SLIDING SCALE SQ 06/17/17 17:00 Sodium Chloride 1,000 ml @ 75 mls/hr [id number] IV 06/17/17 14:12 06/18/17 16:51 06/17/17 15:44 (NS Flush) 2 ml UNSCH PRN IV FLUSH 06/17/17 14:15 (NS Flush) 2 ml BID IV FLUSH 06/17/17 21:00 (Tylenol) 650 mg Q4H PRN PO 06/17/17 14:15 (Tylenol) 650 mg Q6H PRN PO 06/17/17 14:15 ([place] 5-325 Mg) 1 tab Q4H PRN PO 06/17/17 14:15 ([place] 10-325 Mg) 1 tab Q4H PRN PO 06/17/17 14:15 (Narcan Inj) 0.4 mg UNSCH PRN IV PUSH 06/17/17 14:15 (Alma Delia-Colace) 1 tab BID PO 06/17/17 21:00 Pharmacy Profile Note 0 ml @ 0 mls/hr UNSCH OTHER 06/17/17 16:00 UNV Piperacillin Sod/ Tazobactam Sod 100 ml @ 200 mls/hr Q6H IV 06/17/17 21:00 UNV (Catapres) 0.1 mg Q6H PRN PO 06/17/17 16:15 UNV Magnesium Sulfate/ Dextrose 100 ml @ 100 mls/hr Q1H IV 06/17/17 16:15 06/17/17 18:14 UNV Family History The patient denies pertinent family history Social History The patient does not smoke, drink or use illicit substances. Physical Exam Vital Signs Vital Signs Date Time Temp Pulse Resp B/P (MAP) Pulse Ox O2 Delivery O2 Flow Rate FiO2 06/17/17 14:40 06/17/17 13:44 95 19 158/90 (112) 97 Room Air 06/17/17 10:34 98.3 118 22 130/76 (94) 97 Room Air 06/17/17 10:16 98.4 131 14 146/86 (106) 96 Physical Exam GENERAL: Resting comfortably. SKIN: Warm and dry. HEAD: Atraumatic. Normocephalic. EYES: Pupils equal and round. No scleral icterus. No injection or drainage. ENT: No nasal bleeding or discharge. Mucous membranes pink and moist. His teeth have been removed. NECK: Trachea midline. No JVD. CARDIOVASCULAR: Regular rate and rhythm. No murmur appreciated. RESPIRATORY: No accessory muscle use. Clear to auscultation. Breath sounds equal bilaterally. GASTROINTESTINAL: Abdomen soft, non-tender, nondistended. Hepatic and splenic margins not palpable. MUSCULOSKELETAL: Extremities without clubbing, cyanosis, or edema. 2+ pulses bilaterally in the lower feet. Patient has soft tissue swelling of the third toe of the right foot. Not tender to touch. His nail is overgrown and thick. NEUROLOGICAL: Awake and alert. No obvious cranial nerve deficits. Motor grossly within normal limits. Five out of 5 muscle strength in the arms and legs. Normal speech. PSYCHIATRIC: Appropriate mood and affect; insight and judgment normal. Laboratory Laboratory Tests Test 06/17/17 11:25 White Blood Count 11.6 Red Blood Count 3.10 Hemoglobin 9.8 Hematocrit 28.5 Mean Corpuscular Volume 92.0 Mean Corpuscular Hemoglobin 31.7 Mean Corpuscular Hemoglobin Concent 34.5 Red Cell Distribution Width 14.3 Platelet Count 232 Mean Platelet Volume 10.0 Neutrophils (%) (Auto) 58.2 Lymphocytes (%) (Auto) 25.9 Monocytes (%) (Auto) 10.7 Eosinophils (%) (Auto) 4.4 Basophils (%) (Auto) 0.8 Neutrophils # (Auto) 6.8 Lymphocytes # (Auto) 3.0 Monocytes # (Auto) 1.2 Eosinophils # (Auto) 0.5 Basophils # (Auto) 0.1 CBC Comment DIFF FINAL Differential Comment Erythrocyte Sedimentation Rate GREATER THAN 140 Blood Urea Nitrogen 12 Creatinine 0.78 Random Glucose 83 Calcium Level 9.6 Magnesium Level 1.4 Sodium Level 134 Potassium Level 4.3 Chloride Level 100 Carbon Dioxide Level 24.3 Anion Gap 10 Estimat Glomerular Filtration Rate 123 C-Reactive Protein 7.20 Date/Time Source Procedure Growth Status 06/17/17 11:25 Blood Peripheral Aerobic Blood Culture Pending Received 06/17/17 11:25 Blood Peripheral Anaerobic Blood Culture Pending Received Result Diagram: 06/17/17 1125 06/17/17 1125 Imaging Last Impressions Foot X-Ray 06/17/17 0000 Signed Impressions: Service Date/Time: Saturday, June 17, 2017 11:30 - CONCLUSION: 1. No acute fracture or joint dislocation. 2. Mild primary degenerative changes of the foot. 3. Prominent heel spur. MD Pepito Reddy VTE Risk Assessment Caprini VTE Risk Assessment: Mod/High Risk (score >= 2) Caprini Risk Assessment Model Point Value = 1 Point Value = 2 Point Value = 3 Point Value = 5 Age 41-60 Minor surgery BMI > 25 kg/m2 Swollen legs Varicose veins or History of unexplained or recurrent spontaneous Oral contraceptives or hormone replacement Sepsis (< 1 month) Serious lung disease, including pneumonia (< 1 month) Abnormal pulmonary function Acute myocardial infarction Congestive heart failure (< 1 month) History of inflammatory bowel disease Medical patient at bed rest Age 61-74 Arthroscopic surgery Major open surgery (> 45 min) Laparoscopic surgery (> 45 min) Malignancy Confined to bed (> 72 hours) Immobilizing plaster cast Central venous access Age >= 75 History of VTE Family history of VTE Factor V Leiden Prothrombin [id number] Lupus anticoagulant Anticardiolipin antibodies Elevated serum homocysteine Heparin-induced thrombocytopenia Other congenital or acquired thrombophilia Stroke (< 1 month) Elective arthroplasty Hip, pelvis, or leg fracture Acute spinal cord injury (< 1 month) Prophylaxis Regimen Total Risk Factor Score Risk Level Prophylaxis Regimen 0-1 Low Early ambulation 2 Moderate Order ONE of the following: *Sequential Compression Device (SCD) *Heparin 5000 units SQ BID 3-4 Higher Order ONE of the following medications: *Heparin 5000 units SQ TID *Enoxaparin/Lovenox 40 mg SQ daily (WT < 150 kg, CrCl > 30 mL/min) *Enoxaparin/Lovenox 30 mg SQ daily (WT < 150 kg, CrCl > 10-29 mL/min) *Enoxaparin/Lovenox 30 mg SQ BID (WT < 150 kg, CrCl > 30 mL/min) AND/OR *Sequential Compression Device (SCD) 5 or more Highest Order ONE of the following medications: *Heparin 5000 units SQ TID (Preferred with Epidurals) *Enoxaparin/Lovenox 40 mg SQ daily (WT < 150 kg, CrCl > 30 mL/min) *Enoxaparin/Lovenox 30 mg SQ daily (WT < 150 kg, CrCl > 10-29 mL/min) *Enoxaparin/Lovenox 30 mg SQ BID (WT < 150 kg, CrCl > 30 mL/min) AND *Sequential Compression Device (SCD) Assessment and Plan Assessment and Plan Toe swelling The patient said that he woke up on the morning of admission with a swollen right middle toe. He denies any pain. He has not had any fever. His white count was elevated, as well as his ESR and CRP. Imaging without obvious abnormality. Not consistent with gout as not tender to palpation. - Continue IV vancomycin and Zosyn which was started in the emergency department. - Podiatry consult is pending. - IV fluids. - Physical therapy. Anemia Normocytic. Hgb lower than on previous hospitalization. - follow CBC and transfuse as needed. - check iron studies, B12, folate level and Hemoccult. Gram Negative Bacteremia The patient was recently treated in the hospital for an infection and completed a course of Levaquin on the of this month. - Consult infectious disease if needed. Hypertension Blood pressure has been running high. We recently discontinued hydrochlorothiazide secondary to hypokalemia and hyponatremia. - Continue lisinopril 20 mg by mouth daily and adjust as needed. - Clonidine as needed. Uncontrolled diabetes type II Recent A1c was 14%. He was not started on insulin as there was concern for noncompliance. He is on metformin and glipizide as an outpatient. - continue insulin sliding scale. Add long-acting insulin as indicated. - Hold home medication regimen for now. - Gabapentin for neuropathy. Hypokalemia Likely s/t hydrochlorothiazide. - replete and monitor. - DC hydrochlorothiazide. Hypomagnesemia Mg level 1.4. - replete with mg sulfate. PPx: SCDs Discussed Condition With Patient, Javon Reese, , pt's family Physician Certification 2 Midnight Certification Type: Admission for Inpatient Services Order for Inpatient Services The services are ordered in accordance with Medicare regulations or non- Medicare payer requirements, as applicable. In the case of services not specified as inpatient-only, they are appropriately provided as inpatient services in accordance with the 2-midnight benchmark. Estimated LOS (days): 2 days is the estimated time the patient will need to remain in the hospital, assuming treatment plan goals are met and no additional complications. Post-Hospital Plan: Not yet determined Logan Fleming DO Jun 17, 2017 15:38
[2017-06-17] MEDS: SODIUM CHLOR 0.9% 1000 ML INJ 1,000 ML IV SCH (15:44)
[2017-06-17] MEDS ORDERED: Vancomycin Consult Pharmacy 1 EA OTHER SCH (16:00)
[2017-06-17] MEDS ORDERED: cloNIDine HCL 0.1 MG TAB PO PRN (16:15)
[2017-06-17] MEDS: INSULIN ASPART SUPPLEMENTAL SCALE SQ SCH ×2 (16:59→21:13)
[2017-06-17] MEDS ORDERED: VANCOMYCIN 1 GM/200 ML PREMIX IV ONE (17:00)
[2017-06-17] MEDS ORDERED: VANCOMYCIN 1,000 MG/NS 250 ML IV ONE ×2 (17:00)
[2017-06-17] MEDS: GABAPENTIN 300 MG CAP PO SCH (17:00)
[2017-06-17] MEDS: MAGNESIUM SULFATE 1 GM PREMIX 100 ML IV SCH ×2 (17:01→19:28)
[2017-06-17 17:53] LABS: FERRITIN 717 NG/ML (26-388); FOLATE 17.7 NG/ML (3.1-17.5)
[2017-06-17 18:04] LABS: % SATURATION IRON PROFILE 24.6 % (20-50); IRON (FE) 66 MCG/DL (65-175); TOTAL IRON BINDING CAPACITY 269 MCG/DL (250-450)
[2017-06-17 20:00] VITALS: BP 134/78; PULSE 87; PULSE 94; RESP 21; TEMP 99.6; O2SAT 98
[2017-06-17] MEDS: DOCUSATE SODIUM 50 MG/SENNA 8.6 MG TAB PO SCH (21:00)
[2017-06-17] MEDS: SODIUM CHLORIDE 0.9% FLUSH 10 ML FLUSH IV FLUSH SCH (21:11)
[2017-06-17] MEDS: PIPERACIL-TAZO 4.5 GM PREMIX 100 ML IV SCH (21:13)
[2017-06-18] VITALS (10 sets, daily range): BP systolic 108–138; BP diastolic 66–86; PULSE 84–117; RESP 16–20; TEMP 98.3–99.3; O2SAT 95–100
[2017-06-18] MEDS: ACETAMINOPHEN/HYDROcodone 325 MG/10 MG TAB PO PRN ×3 (00:57→20:14)
[2017-06-18] MEDS: VANCOMYCIN 1,500 MG/NS 500 ML IV SCH ×4 (02:28→14:05)
[2017-06-18] MEDS: SODIUM CHLOR 0.9% 1000 ML INJ 1,000 ML IV SCH (04:59)
[2017-06-18] MEDS: PIPERACIL-TAZO 4.5 GM PREMIX 100 ML IV SCH ×4 (05:00→22:00)
[2017-06-18] MEDS: INSULIN ASPART SUPPLEMENTAL SCALE SQ SCH ×4 (08:00→20:13)
[2017-06-18 08:55] LABS: AUTOMATED NEUTROPHIL # 5.4 TH/MM3 (1.8-7.7); BASOPHIL # 0.1 TH/MM3 (0-0.2); BASOPHIL % 1.3 % (0.0-2.0); EOSINOPHIL # 0.4 TH/MM3 (0-0.4); EOSINOPHIL % 5.3 % (0.0-4.0); HEMATOCRIT 26.6 % (39.0-51.0); LYMPH % 18.6 % (9.0-44.0); LYMPHOCYTE # 1.5 TH/MM3 (1.0-4.8); MEAN CELL VOLUME 92.1 FL (80.0-100.0); MEAN CORPUSCULAR HEMOGLOBIN 31.2 PG (27.0-34.0); MEAN CORPUSCULAR HGB CONC 33.9 % (32.0-36.0); MEAN PLATELET VOLUME 8.5 FL (7.0-11.0); MONO % 9.4 % (0.0-8.0); MONOCYTE # 0.8 TH/MM3 (0-0.9); NEUT % 65.4 % (16.0-70.0); PLATELET COUNT 190 TH/MM3 (150-450); RED BLOOD COUNT 2.89 MIL/MM3 (4.50-5.90); WHITE BLOOD COUNT 8.2 TH/MM3 (4.0-11.0)
[2017-06-18] MEDS: DOCUSATE SODIUM 50 MG/SENNA 8.6 MG TAB PO SCH ×2 (09:00→20:15)
[2017-06-18] MEDS: SODIUM CHLORIDE 0.9% FLUSH 10 ML FLUSH IV FLUSH SCH ×2 (09:00→20:15)
[2017-06-18] MEDS: GABAPENTIN 300 MG CAP PO SCH ×3 (09:03→17:56)
[2017-06-18] MEDS: LISINOPRIL 20 MG TAB PO SCH (09:03)
[2017-06-18] MEDS: MAGNESIUM OXIDE 400 MG TAB PO SCH (09:04)
[2017-06-18 09:22] LABS: BICARBONATE 24.5 MEQ/L (21.0-32.0); CALCIUM 8.6 MG/DL (8.5-10.1); CREATININE 0.66 MG/DL (0.60-1.30)
--- NOTE | 2017-06-18 11:06 | MB ---
cc: JAYCEE THAO DATE OF CONSULTATION: 06/18/2017 CHIEF COMPLAINT Right foot abscess, third digit. HISTORY OF PRESENT ILLNESS Mr. Lakhani is a 61-year-old -[place] male patient who states that over the last few days his right third toe has become swollen and very tight. He had concerns of infection. He was supposed to see his shirt folder next week but decided to come into the ER instead as he is diabetic and has had concerns with the digit before. He denies any nausea, vomiting, fever, headaches or chills. PAST MEDICAL HISTORY Diabetes, hypertension. PAST SURGICAL HISTORY Dental surgery only. ALLERGIES ASPIRIN. MEDICATIONS Please see list. VITAL SIGNS: Temperature is 98.9 which is also T-max, pulse 92, respiratory rate 17, blood pressure 138/86, pulse ox 98% O2 on room air. LABORATORY DATA White count is 8.2 down 11.6, hemoglobin 9.0, hematocrit 26.6. Sodium 135, potassium 3.9, chloride 103, carbon dioxide 24.5, BUN 8. CRP 7.2. X-RAYS Negative for any gas in the soft tissue or cortical erosion. MRI pending. PHYSICAL EXAMINATION The patient has palpable DP and PT pulses. Cap fill time less than 3 seconds. Gross sensation is diminished but intact. Nails are elongated, curling, thickened and dystrophic. On the dorsal aspect of the third digit there was a very large bulla. After debridement there is partial thickness ulceration surrounding the dorsal aspect of the third digit extending onto the foot, copious amounts of purulent drainage noted. There is a small area of necrosis on the dorsal tip of the toe but no deep probing to bone at this time. ASSESSMENT/PLAN 1. Right foot abscess status post bedside I&D. 2. Right foot questionable osteomyelitis. - Daily dressing changes by the physician. - MRI pending. - Wound cultures pending. - Continue IV antibiotics. Thank you for the consultation and allowing me to be involved in this patient's care. Procedure: Consent was signed, procedure was explained, no guarantees given. The right third digit was cleanse and prepped. Sterile scissors and pick ups used to deroof the dorsal abscess. Approximately 15mL of purulent fluid was expelled, a culture was obtained. The dorsal skin was sharply removed, and the underlying wound was cleansed. Proper dressing was applied. Jaycee GLOVERL /10:40 AM /10:55 AM MTDD
[2017-06-18] MEDS ORDERED: PHARMACY ORDERED LAB ONE (13:45)
--- NOTE | 2017-06-18 14:44 | HHI.PR ---
Subjective Remarks Patient reports is feeling better. He is status post I&D of right third toe infection. Objective Vitals Vital Signs Date Time Temp Pulse Resp B/P (MAP) Pulse Ox O2 Delivery O2 Flow Rate FiO2 06/18/17 13:03 98.5 97 16 111/82 (92) 98 06/18/17 10:06 98 06/18/17 09:14 98.9 92 17 138/86 (103) 98 06/18/17 08:00 93 06/18/17 08:00 Room Air 06/18/17 04:00 93 06/18/17 04:00 98.9 91 19 136/74 (94) 95 06/18/17 04:00 Room Air 06/18/17 00:00 84 06/18/17 00:00 Room Air 06/18/17 00:00 99.3 87 20 138/81 (100) 97 06/17/17 20:00 94 06/17/17 20:00 Room Air 06/17/17 20:00 99.6 87 21 134/78 (96) 98 06/17/17 15:00 98.1 76 18 156/82 (106) 97 I/O 06/17/17 06/17/17 06/17/17 06/18/17 06/18/17 06/18/17 07:00 15:00 23:00 07:00 15:00 23:00 Intake Total 1050 ml 100 ml 1915 ml Output Total 900 ml Balance 1050 ml 100 ml 1015 ml Intake Oral 200 ml IV Total 1050 ml 100 ml 1715 ml Output Urine Total 900 ml # Bowel Movements 0 Result Diagram: 06/18/17 0805 06/18/17 0805 Imaging Last Impressions Foot X-Ray 06/17/17 0000 Signed Impressions: Service Date/Time: Saturday, June 17, 2017 11:30 - CONCLUSION: 1. No acute fracture or joint dislocation. 2. Mild primary degenerative changes of the foot. 3. Prominent heel spur. Marcus Hernandez MD Objective Remarks GENERAL: This is a well-nourished, well-developed patient, in no apparent distress. CARDIOVASCULAR: Normal rate and regular rhythm without murmurs, gallops, or rubs. RESPIRATORY: Good respiratory efforts. Breath sounds equal and clear to auscultation bilaterally. GASTROINTESTINAL: Abdomen soft, non-tender, non-distended. Normal active bowel sounds MUSCULOSKELETAL: Status post I&D of the right third toe. Dressing appear intact. NEURO: Alert & Oriented x4 to person, place, time, situation. Moves all ext x4 PSYCH: Appropriate mood and affect. A/P Assessment and Plan 61-year-old male with: Right foot abscess/toe infection: Status post I&D at bedside by podiatry with purulent discharge. Concern for osteomyelitis. - Appreciate podiatry following. - MRI pending - Continue IV vancomycin and Zosyn which was started in the emergency department. Anemia Normocytic. Hemoglobin stable - follow CBC and transfuse as needed. Gram Negative Bacteremia The patient was recently treated in the hospital for an infection and completed a course of Levaquin on the of this month. - Continue to follow closely and Consult infectious disease if needed. Hypertension Blood pressure has been running high. We recently discontinued hydrochlorothiazide secondary to hypokalemia and hyponatremia. - Continue lisinopril 20 mg by mouth daily and adjust as needed. - Clonidine as needed. Uncontrolled diabetes type II Recent A1c was 14%. He was not started on insulin as there was concern for noncompliance. He is on metformin and glipizide as an outpatient. - continue insulin sliding scale. - Hold home medication regimen for now. - Gabapentin for neuropathy. PPx: Ty Mary MD Jun 18, 2017 14:44
[2017-06-18] MEDS ORDERED: GADODIAMIDE PF 287 MG/ML 20 ML VIAL (for RAD MRI) IVCONTRAST ONE (16:01)
--- NOTE | 2017-06-18 16:28 | RADRPT ---
EXAM DATE/TIME: 06/18/2017 14:50 [facility] COMPARISON: No previous studies available for comparison. INDICATIONS : Osteomyelitis right forefoot/achilles tendon rupture. CONTRAST: 17 cc Omniscan (gadodiamide) IV MEDICAL HISTORY : Hypertension. Diabetes mellitus type 2. SURGICAL HISTORY : None. ENCOUNTER: Initial ACUITY: 1 day PAIN SCORE: 0/10 LOCATION: Right foot TECHNIQUE: Multiplanar, multisequence MRI examination was performed without contrast and after the intravenous a dministration of gadolinium. FINDINGS: BONE/CARTILAGE: Bone edema subchondral cystic change of the sesamoid bones. Articular cartilage signal is within norm al limits. TENDONS: All of the visualized tendons are intact. The Achilles tendon is diffusely thickened with some increa sed signal shift and chronic tendinopathy but no acute tear is identified MISCELLANEOUS: Plantar aponeurosis is intact. Sinus tarsi is within normal limits. Marked soft tissue swelling acro ss the dorsum of the foot and throughout the plantar musculature POST-CONTRAST: There is clearly some enhancement around the third toe dorsally. This diffuse enhancement throughout the dorsum of the foot. Difficult to rule out myelitis of the third toe, specifically the distal phal angeal bone CONCLUSION: Marked soft tissue swelling across the dorsum of the foot. Marked enhancement and edema around the th ird toe, difficult to rule out distal osteomyelitis. Anant Sullivan MD on June 18, 2017 at 16:23 Board Certified Radiologist. This report was verified electronically.
[2017-06-19] VITALS: BP 123/73; PULSE 87; PULSE 88; RESP 18; TEMP 98.6; O2SAT 97
[2017-06-19] MEDS: VANCOMYCIN 1,500 MG/NS 500 ML IV SCH ×4 (02:04→13:30)
[2017-06-19 04:00] VITALS: BP 125/75; PULSE 85; PULSE 88; RESP 16; TEMP 98.6; O2SAT 98
[2017-06-19] MEDS: PIPERACIL-TAZO 4.5 GM PREMIX 100 ML IV SCH ×4 (04:28→22:06)
[2017-06-19 08:00] VITALS: BP 130/75; PULSE 88; PULSE 93; RESP 20; TEMP 98.9; O2SAT 96
[2017-06-19] MEDS: INSULIN ASPART SUPPLEMENTAL SCALE SQ SCH ×4 (08:00→22:09)
[2017-06-19] MEDS: MAGNESIUM OXIDE 400 MG TAB PO SCH (08:47)
[2017-06-19] MEDS: GABAPENTIN 300 MG CAP PO SCH ×3 (08:47→16:50)
[2017-06-19] MEDS: SODIUM CHLORIDE 0.9% FLUSH 10 ML FLUSH IV FLUSH SCH ×2 (08:47→22:09)
[2017-06-19] MEDS: DOCUSATE SODIUM 50 MG/SENNA 8.6 MG TAB PO SCH ×2 (08:48→21:00)
[2017-06-19] MEDS: LISINOPRIL 20 MG TAB PO SCH (08:48)
--- NOTE | 2017-06-19 09:26 | PD.POD ---
Subjective Pain score: 3 Remarks Feels some improvement after bedside I&D Past Med/Surg/Social History Past Medical History Endocrine: REPORTS HX OF: Diabetes mellitus Genitourinary: REPORTS HX OF: Past UTI Psychiatric: REPORTS HX OF: Other psychiatric history Social History Smoking Status: Never Smoker Objective Vital Signs Vital Signs Date Time Temp Pulse Resp B/P (MAP) Pulse Ox O2 Delivery O2 Flow Rate FiO2 06/19/17 04:00 98.6 88 16 125/75 (92) 98 06/19/17 04:00 Room Air 06/19/17 04:00 85 06/19/17 00:00 Room Air 06/19/17 00:00 87 06/19/17 00:00 98.6 88 18 123/73 (90) 97 06/18/17 20:00 84 06/18/17 20:00 Room Air 06/18/17 19:39 98.5 94 18 108/66 (80) 100 06/18/17 17:24 98.3 93 18 121/78 (92) 100 06/18/17 13:03 98.5 97 16 111/82 (92) 98 06/18/17 12:00 117 06/18/17 10:06 98 Coded Allergies: aspirin (Unverified Allergy, Unknown, 06/17/17) Medications and IVs Administered Medications Medications (Trade) Dose Ordered Sig/Jackie Route PRN Reason Start Time Stop Time Status Last Admin Dose Admin Lisinopril (Prinivil) 20 mg DAILY PO 06/17/17 14:15 06/19/17 08:48 Gabapentin (Neurontin) 300 mg TID PO 06/17/17 18:00 06/19/17 08:47 Magnesium Oxide (Mag-Ox) 400 mg DAILY PO 06/18/17 09:00 06/19/17 08:47 Insulin Aspart (NovoLOG SUPPLEMENTAL SCALE) 1 ACHS SLIDING SCALE SQ 06/17/17 17:00 06/18/17 20:13 Sodium Chloride (NS Flush) 2 ml BID IV FLUSH 06/17/17 21:00 06/19/17 08:47 Acetaminophen/ Hydrocodone Bitart ([place] 10-325 Mg) 1 tab Q4H PRN PO PAIN SCALE 6 TO 10 06/17/17 14:15 06/18/17 20:14 Senna/Docusate Sodium (Alma Delia-Colace) 1 tab BID PO 06/17/17 21:00 06/19/17 08:48 Piperacillin Sod/ Tazobactam Sod 100 ml @ 200 mls/hr Q6H IV 06/17/17 22:00 06/19/17 08:48 Clonidine (Catapres) 0.1 mg Q6H PRN PO SBP> OR = 180, DBP> OR = 100 06/17/17 16:15 06/17/17 17:00 Vancomycin HCl 1500 mg/Sodium Chloride 515 ml @ 257.5 mls/ hr Q12H IV 06/18/17 02:00 06/19/17 02:04 Laboratory Tests Test 06/17/17 11:25 06/18/17 08:05 White Blood Count 11.6 TH/MM3 8.2 TH/MM3 Red Blood Count 3.10 MIL/MM3 2.89 MIL/MM3 Hemoglobin 9.8 GM/DL 9.0 GM/DL Hematocrit 28.5 % 26.6 % Mean Corpuscular Volume 92.0 FL 92.1 FL Mean Corpuscular Hemoglobin 31.7 PG 31.2 PG Mean Corpuscular Hemoglobin Concent 34.5 % 33.9 % Red Cell Distribution Width 14.3 % 14.0 % Platelet Count 232 TH/MM3 190 TH/MM3 Mean Platelet Volume 10.0 FL 8.5 FL Neutrophils (%) (Auto) 58.2 % 65.4 % Lymphocytes (%) (Auto) 25.9 % 18.6 % Monocytes (%) (Auto) 10.7 % 9.4 % Eosinophils (%) (Auto) 4.4 % 5.3 % Basophils (%) (Auto) 0.8 % 1.3 % Neutrophils # (Auto) 6.8 TH/MM3 5.4 TH/MM3 Lymphocytes # (Auto) 3.0 TH/MM3 1.5 TH/MM3 Monocytes # (Auto) 1.2 TH/MM3 0.8 TH/MM3 Eosinophils # (Auto) 0.5 TH/MM3 0.4 TH/MM3 Basophils # (Auto) 0.1 TH/MM3 0.1 TH/MM3 CBC Comment DIFF FINAL DIFF FINAL Differential Comment Erythrocyte Sedimentation Rate GREATER THAN 140 mm/hr Laboratory Tests Test 06/17/17 11:25 06/18/17 08:05 Blood Urea Nitrogen 12 MG/DL 8 MG/DL Creatinine 0.78 MG/DL 0.66 MG/DL Random Glucose 83 MG/DL 86 MG/DL Calcium Level 9.6 MG/DL 8.6 MG/DL Magnesium Level 1.4 MG/DL Sodium Level 134 MEQ/L 135 MEQ/L Potassium Level 4.3 MEQ/L 3.9 MEQ/L Chloride Level 100 MEQ/L 103 MEQ/L Carbon Dioxide Level 24.3 MEQ/L 24.5 MEQ/L Anion Gap 10 MEQ/L 8 MEQ/L Estimat Glomerular Filtration Rate 123 ML/MIN 149 ML/MIN Iron Level 66 MCG/DL Total Iron Binding Capacity 269 MCG/DL Percent Iron Saturation 24.6 % Ferritin 717 NG/ML C-Reactive Protein 7.20 MG/DL Vitamin B12 Level 587 PG/ML Folate 17.7 NG/ML Microbiology Date/Time Source Procedure Growth Status 06/17/17 11:25 Blood Peripheral Aerobic Blood Culture - Preliminary NO GROWTH IN 1 DAY Resulted 06/17/17 11:25 Blood Peripheral Anaerobic Blood Culture - Preliminary NO GROWTH IN 1 DAY Resulted 06/17/17 11:20 Blood Peripheral Aerobic Blood Culture - Preliminary NO GROWTH IN 1 DAY Resulted 06/17/17 11:20 Blood Peripheral Anaerobic Blood Culture - Preliminary NO GROWTH IN 1 DAY Resulted 06/18/17 10:30 Abscess Foot Gram Stain Pending Received 06/18/17 10:30 Abscess Foot Wound Culture Pending Received Last 72 hours Impressions Foot MRI 06/18/17 0000 Signed Impressions: Service Date/Time: Sunday, June 18, 2017 14:50 - CONCLUSION: Marked soft tissue swelling across the dorsum of the foot. Marked enhancement and edema around the third toe, difficult to rule out distal osteomyelitis. Anant Sullivan MD Foot X-Ray 06/17/17 0000 Signed Impressions: Service Date/Time: Saturday, June 17, 2017 11:30 - CONCLUSION: 1. No acute fracture or joint dislocation. 2. Mild primary degenerative changes of the foot. 3. Prominent heel spur. Marcus Hernandez MD Physical Exam General appearance: comfortable Nutritional status: normal Orientation: alert and oriented x3 Details The patient has palpable DP and PT pulses. Cap fill time less than 3 seconds. Gross sensation is diminished but intact. Nails are elongated, curling, thickened and dystrophic. Third digit examined with red viable beefy base of wound without extension to bone Assessment & Plan A/P Third digit ulcer abscess status post incision and drainage left foot Callous and nail debrided today. Reviewed MRI with patient and he wishes for preservation of the toe and is refusing amputation. I do believe this is reasonable however recommend 1-2 days of observation to monitor clinical status of infection before deciding IV antibiotics versus further surgical intervention. We'll follow up tomorrow for bandages changed and advise. Infectious disease consultation may be indicated if the patient chooses long-term IV antibiotics as opposed to amputation of digit. Manjinder De Oliveira DPM Jun 19, 2017 09:26
[2017-06-19 10:21] LABS: HEMATOCRIT 26.6 % (39.0-51.0); HEMOGLOBIN 8.9 GM/DL (13.0-17.0); MEAN CELL VOLUME 93.5 FL (80.0-100.0); MEAN CORPUSCULAR HEMOGLOBIN 31.4 PG (27.0-34.0); MEAN CORPUSCULAR HGB CONC 33.6 % (32.0-36.0); MEAN PLATELET VOLUME 8.3 FL (7.0-11.0); PLATELET COUNT 210 TH/MM3 (150-450); RED BLOOD COUNT 2.85 MIL/MM3 (4.50-5.90); RED CELL DISTRIBUTION WIDTH 14.2 % (11.6-17.2)
[2017-06-19 10:49] LABS: CALCIUM 8.8 MG/DL (8.5-10.1); CREATININE 0.81 MG/DL (0.60-1.30)
[2017-06-19 12:00] VITALS: BP 173/88; PULSE 100; PULSE 75; RESP 20; TEMP 98.8; O2SAT 99
--- NOTE | 2017-06-19 13:30 | HHI.PR ---
Subjective Remarks Patient reports is feeling okay. Afebrile. Pain is controlled. He is ambulating to the bathroom. Objective Vitals Vital Signs Date Time Temp Pulse Resp B/P (MAP) Pulse Ox O2 Delivery O2 Flow Rate FiO2 06/19/17 09:51 Room Air 06/19/17 08:00 98.9 93 20 130/75 (93) 96 06/19/17 08:00 88 06/19/17 04:00 98.6 88 16 125/75 (92) 98 06/19/17 04:00 Room Air 06/19/17 04:00 85 06/19/17 00:00 Room Air 06/19/17 00:00 87 06/19/17 00:00 98.6 88 18 123/73 (90) 97 06/18/17 20:00 84 06/18/17 20:00 Room Air 06/18/17 19:39 98.5 94 18 108/66 (80) 100 06/18/17 17:24 98.3 93 18 121/78 (92) 100 I/O 06/18/17 06/18/17 06/18/17 06/19/17 06/19/17 06/19/17 07:00 15:00 23:00 07:00 15:00 23:00 Intake Total 1915 ml 580 ml 1090 ml Output Total 900 ml 1800 ml Balance 1015 ml 580 ml -710 ml Intake Oral 200 ml 480 ml 480 ml IV Total 1715 ml 100 ml 610 ml Output Urine Total 900 ml 1800 ml # Bowel Movements 0 0 Result Diagram: 06/19/1740 06/19/17 0940 Objective Remarks GENERAL: This is a well-nourished, well-developed patient, in no apparent distress. CARDIOVASCULAR: Normal rate and regular rhythm without murmurs, gallops, or rubs. RESPIRATORY: Good respiratory efforts. Breath sounds equal and clear to auscultation bilaterally. GASTROINTESTINAL: Abdomen soft, non-tender, non-distended. Normal active bowel sounds MUSCULOSKELETAL: Status post I&D of the right third toe. Dressing appear intact. NEURO: Alert & Oriented x4 to person, place, time, situation. Moves all ext x4 PSYCH: Appropriate mood and affect. A/P Assessment and Plan 61-year-old male with: Right foot abscess/toe infection: Status post I&D at bedside by podiatry with purulent discharge. Concern for osteomyelitis. - Appreciate podiatry following. - MRI pending - Continue IV vancomycin and Zosyn which was started in the emergency department. - Podiatry considered amputation of the toe but the patient is currently refusing. Natural follow-up and make further recommendations tomorrow Anemia Normocytic. Hemoglobin stable - follow CBC and transfuse as needed. History of Gram Negative Bacteremia The patient was recently treated in the hospital for an infection and completed a course of Levaquin on the of this month. - Continue to follow closely and Consult infectious disease if needed. Hypertension Blood pressure has been running high. We recently discontinued hydrochlorothiazide secondary to hypokalemia and hyponatremia. - Continue lisinopril 20 mg by mouth daily and adjust as needed. - Clonidine as needed. Uncontrolled diabetes type II Recent A1c was 14%. He was not started on insulin as there was concern for noncompliance. He is on metformin and glipizide as an outpatient. - continue insulin sliding scale. - Hold home medication regimen for now. - Gabapentin for neuropathy. PPx: Ty Mary MD Jun 19, 2017 13:30
[2017-06-19] MEDS ORDERED: PHARMACY ORDERED LAB ONE (13:45)
[2017-06-19 16:00] VITALS: BP 131/65; PULSE 69; PULSE 92; RESP 20; TEMP 99.1; O2SAT 99
[2017-06-19 20:00] VITALS: BP 137/73; PULSE 102; PULSE 91; RESP 16; TEMP 99.7; O2SAT 99
[2017-06-19] MEDS: ACETAMINOPHEN/HYDROcodone 325 MG/10 MG TAB PO PRN (22:07)
[2017-06-20] VITALS (11 sets, daily range): BP systolic 116–149; BP diastolic 57–93; PULSE 74–115; RESP 17–20; TEMP 97.6–98.9; O2SAT 97–100
[2017-06-20] MEDS: PIPERACIL-TAZO 4.5 GM PREMIX 100 ML IV SCH ×4 (03:24→21:07)
[2017-06-20] MEDS: INSULIN ASPART SUPPLEMENTAL SCALE SQ SCH ×4 (08:00→21:13)
[2017-06-20] MEDS: MAGNESIUM OXIDE 400 MG TAB PO SCH (08:22)
[2017-06-20] MEDS: SODIUM CHLORIDE 0.9% FLUSH 10 ML FLUSH IV FLUSH SCH ×2 (08:22→21:14)
[2017-06-20] MEDS: LISINOPRIL 20 MG TAB PO SCH (08:23)
[2017-06-20] MEDS: DOCUSATE SODIUM 50 MG/SENNA 8.6 MG TAB PO SCH ×2 (08:23→21:00)
[2017-06-20] MEDS: GABAPENTIN 300 MG CAP PO SCH ×3 (08:23→17:08)
[2017-06-20] MEDS: ACETAMINOPHEN/HYDROcodone 325 MG/10 MG TAB PO PRN ×2 (10:11→21:13)
--- NOTE | 2017-06-20 10:51 | HHI.PR ---
Subjective Remarks states have mild throbbing foot pain Objective Vitals Vital Signs Date Time Temp Pulse Resp B/P (MAP) Pulse Ox O2 Delivery O2 Flow Rate FiO2 06/20/17 09:10 Room Air 06/20/17 08:00 98.8 85 20 147/77 (100) 99 06/20/17 08:00 85 06/20/17 04:07 98.0 78 18 148/93 (111) 98 06/20/17 04:00 92 06/20/17 04:00 Room Air 06/20/17 00:00 Room Air 06/20/17 00:00 98.9 96 18 116/57 (76) 97 06/20/17 00:00 99 06/19/17 20:00 Room Air 06/19/17 20:00 102 06/19/17 20:00 99.7 91 16 137/73 (94) 99 06/19/17 16:00 99.1 92 20 131/65 (87) 99 06/19/17 16:00 69 06/19/17 12:00 75 06/19/17 12:00 98.8 100 20 173/88 (116) 99 I/O 06/19/17 06/19/17 06/19/17 06/20/17 06/20/17 06/20/17 07:00 15:00 23:00 07:00 15:00 23:00 Intake Total 1090 ml 100 ml 1080 ml 722 ml Output Total 1800 ml 1225 ml 1300 ml Balance -710 ml 100 ml -145 ml -578 ml Intake Oral 480 ml 480 ml 722 ml IV Total 610 ml 100 ml 600 ml Output Urine Total 1800 ml 1225 ml 1300 ml # Bowel Movements 0 0 1 Result Diagram: 06/19/1740 06/19/17 0940 Imaging Last Impressions Foot MRI 06/18/17 0000 Signed Impressions: Service Date/Time: Sunday, June 18, 2017 14:50 - CONCLUSION: Marked soft tissue swelling across the dorsum of the foot. Marked enhancement and edema around the third toe, difficult to rule out distal osteomyelitis. Anant Sullivan MD Foot X-Ray 06/17/17 0000 Signed Impressions: Service Date/Time: Saturday, June 17, 2017 11:30 - CONCLUSION: 1. No acute fracture or joint dislocation. 2. Mild primary degenerative changes of the foot. 3. Prominent heel spur. Marcus Hernandez MD Objective Remarks awake and alert, no acute distress lungs- clear regular rhythm abdomen soft right forefoot with swelling and erythema of the 3rd digit A/P Assessment and Plan 61-year-old male with: Right foot abscess/toe infection: Status post I&D at bedside by podiatry with purulent discharge. Concern for osteomyelitis- on MRI. - Appreciate podiatry following. - Continue IV vancomycin and Zosyn - Podiatry ff closely along with us considered amputation of the toe but the patient is currently refusing. - get ID input Anemia Normocytic. Hemoglobin stable - follow CBC and transfuse as needed. History of Gram Negative Bacteremia The patient was recently treated in the hospital for an infection and completed a course of Levaquin on the of this month. - Continue to follow closely and Consult infectious disease Hypertension - recently discontinued hydrochlorothiazide secondary to hypokalemia and hyponatremia. - Continue lisinopril 20 mg by mouth daily and adjust as needed. - Clonidine as needed. Uncontrolled diabetes type II Recent A1c was 14%. He was not started on insulin as there was concern for noncompliance. He is on metformin and glipizide as an outpatient. - continue insulin sliding scale. - Glucose readings- 150s- low 200s - restart metformin 1 gm po bid - Gabapentin for neuropathy. PPx: Charity Alfonso MD Jun 20, 2017 10:51
[2017-06-20] MEDS: VANCOMYCIN 1,500 MG/NS 500 ML IV SCH ×2 (12:05)
--- NOTE | 2017-06-20 14:10 | PD.ID.CON ---
History of Present Illness Service ID Consult Requested By Reason for Consult Evaluation and Mment of Right 3rd toe osteomyelitis. Primary Care Physician Julia Ramey MD Diagnoses: History of Present Illness is a 61 yr old AAM with PMHx significant for E.faecalis bacteremia ( transient with negative ECHO, podiatry evaluation at that time consistent with soft tissue infection, no concern for osteomyelitis). Since patient had GI symptoms and flu history as well a Colonoscopy was recommended as outpt. Patient has been non compliant with DM meds and was admitted with BS in 500s during last admission. Patient did well clinically and since bacteremia was transient he was discharged on oral levaquin and follow up with PCP Dr.Leslie Ramey. Patient now returns with swollen right 3rd toe at site of prior avulsed nail. Xray and MRI of foot concerning for osteomyelitis. Podiatry consulted and ID consulted for evaluation and Mment of toe osteomyelitis. Pertinent positives and negatives: Did not have glucometer so has not been checking sugars. Got his teeth removed and new dentures like counseled last admission. No fevers, chills or night sweats. Review of Systems ROS Limitations: Poor Historian Past Family Social History Allergies: Coded Allergies: aspirin (Unverified Allergy, Unknown, 06/17/17) Past Medical History DM DM neuropathy HTN Flu in Jun 2017 Enterococcal bacteremia in Jun 2016 Toe nail avulsion in Jun 2016. Past Surgical History Teeth removal surgery Reported Medications Reported Meds & Active Scripts Active Magnesium Oxide 400 Mg Tab 400 Mg PO DAILY Glipizide 5 Mg Tab 5 Mg PO DAILY Take 30 minutes before a meal Reported Lisinopril 10 Mg Tab 10 Mg PO DAILY Hydrochlorothiazide 12.5 Mg Cap 12.5 Mg PO DAILY Neurontin (Gabapentin) 300 Mg Cap 300 Mg PO HS Prospect (Hydrocodone-Acetaminophen) 7.5-325 mg Tab 1 Tab PO Q4-6H PRN Amoxicillin 500 Mg Cap 500 Mg PO Q6HR Until Finished Naproxen 500 Mg Tab 500 Mg PO BID Metformin ER (Metformin HCl) 1,000 Mg Natalia 1,000 Mg PO BID Active Ordered Medications Current Medications Medications (Trade) Dose Ordered Sig/Jackie Route Start Time Stop Time Status Last Admin (Prinivil) 20 mg DAILY PO 06/17/17 14:15 06/20/17 08:23 (Neurontin) 300 mg TID PO 06/17/17 18:00 06/20/17 17:08 (Mag-Ox) 400 mg DAILY PO 06/18/17 09:00 06/20/17 08:22 (NovoLOG SUPPLEMENTAL SCALE) 1 ACHS SLIDING SCALE SQ 06/17/17 17:00 06/20/17 11:48 (NS Flush) 2 ml UNSCH PRN IV FLUSH 06/17/17 14:15 (NS Flush) 2 ml BID IV FLUSH 06/17/17 21:00 06/20/17 08:22 (Tylenol) 650 mg Q4H PRN PO 06/17/17 14:15 (Tylenol) 650 mg Q6H PRN PO 06/17/17 14:15 (Prospect 5-325 Mg) 1 tab Q4H PRN PO 06/17/17 14:15 (Prospect 10-325 Mg) 1 tab Q4H PRN PO 06/17/17 14:15 06/20/17 10:11 (Narcan Inj) 0.4 mg UNSCH PRN IV PUSH 06/17/17 14:15 (Alma Delia-Colace) 1 tab BID PO 06/17/17 21:00 06/19/17 08:48 Pharmacy Profile Note 0 ml @ 0 mls/hr UNSCH OTHER 06/17/17 16:00 Piperacillin Sod/ Tazobactam Sod 100 ml @ 200 mls/hr Q6H IV 06/17/17 22:00 06/20/17 17:08 (Catapres) 0.1 mg Q6H PRN PO 06/17/17 16:15 06/17/17 17:00 Vancomycin HCl 1500 mg/Sodium Chloride 515 ml @ 257.5 mls/ hr Q18H IV 06/20/17 13:00 06/20/17 12:05 Miscellaneous Information SPECIFIC LAB TO BE DRAWN:VANCOMYCIN TROUGH DATE TO... ONCE ONCE .XX 06/22/17 00:45 06/22/17 00:46 (Glucophage) 1,000 mg BIDPC PO 06/20/17 18:00 06/20/17 17:54 Family History reviewed and NC Social History Lives with . 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 Denies smoking. Reports alcohol use 3-4 beers per day. Physical Exam Vital Signs Vital Signs Date Time Temp Pulse Resp B/P (MAP) Pulse Ox O2 Delivery O2 Flow Rate FiO2 06/20/17 12:25 97 21 06/20/17 12:00 115 06/20/17 09:10 Room Air 06/20/17 08:00 98.8 85 20 147/77 (100) 99 06/20/17 08:00 85 06/20/17 04:07 98.0 78 18 148/93 (111) 98 06/20/17 04:00 92 06/20/17 04:00 Room Air 06/20/17 00:00 Room Air 06/20/17 00:00 98.9 96 18 116/57 (76) 97 06/20/17 00:00 99 06/19/17 20:00 Room Air 06/19/17 20:00 102 06/19/17 20:00 99.7 91 16 137/73 (94) 99 06/19/17 16:00 99.1 92 20 131/65 (87) 99 06/19/17 16:00 69 Physical Exam GENERAL: Obese, well-developed patient, in no apparent distress. SKIN: No rashes, ecchymoses or lesions. Cool and dry. HEAD: Atraumatic. Normocephalic. No temporal or scalp tenderness. EYES: Pupils equal round and reactive. Extraocular motions intact. No scleral icterus. No injection or drainage. ENT: Nose without bleeding, purulent drainage or septal hematoma. Throat without erythema, tonsillar hypertrophy or exudate. Uvula midline. Airway patent. NECK: Trachea midline. Supple, nontender, no meningeal signs. CARDIOVASCULAR: HS audible. RESPIRATORY: Clear to auscultation. Breath sounds equal bilaterally. No wheezes , rales, or rhonchi. GASTROINTESTINAL: Abdomen soft, non-tender, nondistended. Obese. MUSCULOSKELETAL: Right 3rd toe with swelling, induration, abrasion of skin and erythema. NEUROLOGICAL: Awake and alert. Non focal exam Psych cooperative IV line sites with no e.o infection. Laboratory Date/Time Source Procedure Growth Status 06/17/17 11:25 Blood Peripheral Aerobic Blood Culture - Preliminary NO GROWTH IN 3 DAYS Resulted 06/17/17 11:25 Blood Peripheral Anaerobic Blood Culture - Preliminary NO GROWTH IN 3 DAYS Resulted 06/18/17 10:30 Abscess Foot Gram Stain - Final Resulted 06/18/17 10:30 Abscess Foot Wound Culture - Preliminary NO GROWTH IN 48 HOURS. Resulted Result Diagram: 06/19/17 0940 06/19/17 0940 Imaging Last Impressions Foot MRI 06/18/17 0000 Signed Impressions: Service Date/Time: Sunday, June 18, 2017 14:50 - CONCLUSION: Marked soft tissue swelling across the dorsum of the foot. Marked enhancement and edema around the third toe, difficult to rule out distal osteomyelitis. Anant Sullivan MD Foot X-Ray 06/17/17 0000 Signed Impressions: Service Date/Time: Saturday, June 17, 2017 11:30 - CONCLUSION: 1. No acute fracture or joint dislocation. 2. Mild primary degenerative changes of the foot. 3. Prominent heel spur. Marcus Hernandez MD Assessment and Plan Assessment and Plan Right 3rd toe osteomyelitis Right foot cellulitis. DM with DM neuropathy h/o Enterococcal bacteremia (ECHO in Jun 2016 negative for vegetations and repeat blood cultures are negative this admission) Non compliance Recs: Continue Zosyn IV Continue Vanco IV (target trough 15-20) dennis Barfield: thinks due to architecture of foot and reported h/o Enterococcal bacteremia will benefit from amputation of 3rd toe. discussed to send intraop cultures and path. At this this time superficial wound cultures can be negative as patient recd oral levaquin a week or so back. Follow cultures Follow clinically. Charlene Jung MD Jun 20, 2017 14:10
--- NOTE | 2017-06-20 17:09 | PD.POD ---
Subjective Pain score: 3 Remarks Seen bedside with family, understands risk of amputation Past Med/Surg/Social History Past Medical History Endocrine: REPORTS HX OF: Diabetes mellitus Genitourinary: REPORTS HX OF: Past UTI Psychiatric: REPORTS HX OF: Other psychiatric history Social History Smoking Status: Never Smoker Objective Vital Signs Vital Signs Date Time Temp Pulse Resp B/P (MAP) Pulse Ox O2 Delivery O2 Flow Rate FiO2 06/20/17 16:03 98.4 86 18 149/86 (107) 97 06/20/17 12:25 97 21 06/20/17 12:00 115 06/20/17 09:10 Room Air 06/20/17 08:00 98.8 85 20 147/77 (100) 99 06/20/17 08:00 85 06/20/17 04:07 98.0 78 18 148/93 (111) 98 06/20/17 04:00 92 06/20/17 04:00 Room Air 06/20/17 00:00 Room Air 06/20/17 00:00 98.9 96 18 116/57 (76) 97 06/20/17 00:00 99 06/19/17 20:00 Room Air 06/19/17 20:00 102 06/19/17 20:00 99.7 91 16 137/73 (94) 99 Coded Allergies: aspirin (Unverified Allergy, Unknown, 06/17/17) Physical Exam Remarks General appearance: comfortable Nutritional status: normal Orientation: alert and oriented x3 Details The patient has palpable DP and PT pulses. Cap fill time less than 3 seconds. Gross sensation is diminished but intact. Third digit examined with red viable beefy base of wound without extension to bone, hammertoe noted, rigid Assessment & Plan A/P Third digit ulcer abscess status post incision and drainage left foot Patient explained risks of supervisor intermediates IV ABX vs digit amputation. He chose digit amputation left 3rd digit. Patient has good pulses no need for Vascular work up. NPO, surgery planned for tomorrow 4pm ok for breakfast, will take deep cx at margin Manjinder De Oliveira DPM Jun 20, 2017 17:09
[2017-06-20] MEDS: metFORMIN HCL 500 MG TAB PO SCH (17:54)
[2017-06-21] VITALS (8 sets, daily range): BP systolic 139–156; BP diastolic 81–95; PULSE 80–101; RESP 16–18; TEMP 98.2–99; O2SAT 97–100
[2017-06-21] MEDS: PIPERACIL-TAZO 4.5 GM PREMIX 100 ML IV SCH ×4 (03:55→21:46)
[2017-06-21] MEDS: VANCOMYCIN 1,500 MG/NS 500 ML IV SCH ×2 (05:44)
[2017-06-21 08:52] LABS: CREATININE 0.7 MG/DL (0.60-1.30)
[2017-06-21] MEDS: DOCUSATE SODIUM 50 MG/SENNA 8.6 MG TAB PO SCH ×2 (09:00→21:00)
[2017-06-21] MEDS: metFORMIN HCL 500 MG TAB PO SCH (09:00)
--- NOTE | 2017-06-21 09:33 | HHI.PR ---
Subjective Remarks no complains of pain looking forward to surgery this " 4 pm" Objective Vitals Vital Signs Date Time Temp Pulse Resp B/P (MAP) Pulse Ox O2 Delivery O2 Flow Rate FiO2 06/21/17 08:06 98.5 101 18 156/91 (112) 97 06/21/17 04:00 98.2 85 16 139/95 (110) 97 06/21/17 04:00 92 06/21/17 00:00 92 06/21/17 00:00 98.4 91 16 142/92 (109) 100 06/21/17 00:00 Room Air 06/20/17 21:04 97.6 91 18 140/81 (100) 98 06/20/17 20:00 103 06/20/17 20:00 Room Air 06/20/17 19:00 98.7 88 17 147/85 (105) 100 06/20/17 16:03 98.4 86 18 149/86 (107) 97 06/20/17 16:00 74 06/20/17 16:00 98.6 84 20 136/82 (100) 100 06/20/17 12:25 97 21 06/20/17 12:00 98.7 107 20 137/78 (97) 99 06/20/17 12:00 115 I/O 06/20/17 06/20/17 06/20/17 06/21/17 06/21/17 06/21/17 07:00 15:00 23:00 07:00 15:00 23:00 Intake Total 822 ml 600 ml 1580 ml 100 ml Output Total 1300 ml 1125 ml 650 ml Balance -478 ml 600 ml 455 ml -550 ml Intake Oral 722 ml 1380 ml IV Total 100 ml 600 ml 200 ml 100 ml Output Urine Total 1300 ml 1125 ml 650 ml # Voids 1 # Bowel Movements 1 1 Result Diagram: 06/19/17 0940 06/21/17 0630 Imaging Last Impressions Foot MRI 06/18/17 0000 Signed Impressions: Service Date/Time: Sunday, June 18, 2017 14:50 - CONCLUSION: Marked soft tissue swelling across the dorsum of the foot. Marked enhancement and edema around the third toe, difficult to rule out distal osteomyelitis. Anant Sullivan MD Foot X-Ray 06/17/17 0000 Signed Impressions: Service Date/Time: Saturday, June 17, 2017 11:30 - CONCLUSION: 1. No acute fracture or joint dislocation. 2. Mild primary degenerative changes of the foot. 3. Prominent heel spur. Marcus Hernandez MD Objective Remarks awake and alert, no acute distress lungs- clear regular rhythm abdomen soft right forefoot with swelling and erythema of the 3rd digit, dry A/P Assessment and Plan 61-year-old male with: Right foot abscess/toe infection: Status post I&D at bedside by podiatry with purulent discharge. Concern for osteomyelitis- on MRI. - going for 3rd toe amputation - Continue IV vancomycin and Zosyn - appreciate ID recommendation Anemia Normocytic. Hemoglobin stable - follow CBC and transfuse as needed. History of Gram Negative Bacteremia The patient was recently treated in the hospital for an infection and completed a course of Levaquin on the of this month. Hypertension - recently discontinued hydrochlorothiazide secondary to hypokalemia and hyponatremia. - Continue lisinopril 20 mg by mouth daily and adjust as needed. - Increase dose - Clonidine as needed. Uncontrolled diabetes type II Recent A1c was 14%. He was not started on insulin as there was concern for noncompliance. He is on metformin and glipizide as an outpatient. - continue insulin sliding scale. - Glucose readings- 150s- low 200s - restarted metformin 1 gm po bid . sliding scale insulin - Gabapentin for neuropathy. PPx: Charity Alfonso MD Jun 21, 2017 09:33
[2017-06-21] MEDS: GABAPENTIN 300 MG CAP PO SCH ×2 (09:34→13:00)
[2017-06-21] MEDS: LISINOPRIL 20 MG TAB PO SCH (09:34)
[2017-06-21] MEDS: MAGNESIUM OXIDE 400 MG TAB PO SCH (09:34)
[2017-06-21] MEDS: INSULIN ASPART SUPPLEMENTAL SCALE SQ SCH ×4 (09:44→21:00)
[2017-06-21] MEDS ORDERED: ePHEDrine/NS 25 MG/5 ML SYRINGE IV ONE (12:00)
[2017-06-21] MEDS ORDERED: LIDOCAINE HCL 1% PF 5 ML SYRINGE OTHER ONE (12:00)
[2017-06-21] MEDS ORDERED: PROPOFOL 200 MG/20 ML AMP IV ONE (12:00)
[2017-06-21] MEDS ORDERED: ONDANSETRON HCL 4 MG/2 ML VIAL IV ONE (12:00)
[2017-06-21] MEDS ORDERED: BUPIVACAINE HCL PF 0.25% 30 ML VIAL ONE (16:03)
[2017-06-21] MEDS ORDERED: NEOMYCIN/POLYMYXIN 1 ML G.U. IRRIGANT IRRIGATION ONE (18:17)
--- NOTE | 2017-06-21 19:38 | HHI.PR ---
Immediate Post Op Note Procedure Date: Jun 21, 2017 Pre Op Diagnosis: rt 3rd digit OM ulcer infection Post Op Diagnosis: same Surgeon: Manjinder Stoner [place] Strip Gauger(s): scrub Procedure: rt 3rd digit amputation Findings: bone appears hard at amp site deep cx taken Complications: none Specimen(s) removed: rt 3rd digit Anesthesia: General, Local Drains: None Tourniquet time (min at mmHg) less than 10 min 250mmhg of the right ankle Patient to: PACU Patient Condition: Good Implant/Devices: SEE IMPLANT LOG (if applicable) Date/Time of Procedure: SEE SURGICAL CARE RECORD Manjinder StonerM Jun 21, 2017 19:38
[2017-06-21] MEDS ORDERED: DO NOT ADM ANY ANTICOAGULANT DRUGS PRN (21:00)
[2017-06-21] MEDS: SODIUM CHLORIDE 0.9% FLUSH 10 ML FLUSH IV FLUSH SCH (21:46)
[2017-06-22] VITALS (8 sets, daily range): BP systolic 131–149; BP diastolic 74–85; PULSE 77–103; RESP 15–18; TEMP 98–99; O2SAT 95–100
[2017-06-22] MEDS ORDERED: PHARMACY ORDERED LAB ONE (00:45)
[2017-06-22] MEDS: VANCOMYCIN 1,500 MG/NS 500 ML IV SCH ×2 (00:58)
[2017-06-22] MEDS: PIPERACIL-TAZO 4.5 GM PREMIX 100 ML IV SCH ×4 (03:12→21:00)
[2017-06-22] MEDS: DOCUSATE SODIUM 50 MG/SENNA 8.6 MG TAB PO SCH ×2 (09:00→21:00)
[2017-06-22] MEDS: GABAPENTIN 300 MG CAP PO SCH ×3 (10:21→17:52)
[2017-06-22] MEDS: metFORMIN HCL 500 MG TAB PO SCH ×2 (10:21→17:52)
[2017-06-22] MEDS: SODIUM CHLORIDE 0.9% FLUSH 10 ML FLUSH IV FLUSH SCH ×2 (10:22→21:00)
[2017-06-22] MEDS: MAGNESIUM OXIDE 400 MG TAB PO SCH (10:22)
[2017-06-22] MEDS: LISINOPRIL 20 MG TAB PO SCH (10:22)
[2017-06-22] MEDS: INSULIN ASPART SUPPLEMENTAL SCALE SQ SCH ×4 (10:23→21:00)
[2017-06-22] MEDS: ACETAMINOPHEN/HYDROcodone 325 MG/10 MG TAB PO PRN ×2 (10:30→17:53)
--- NOTE | 2017-06-22 10:42 | MP ---
cc: ARABELLA TOLEDO. M DATE OF SURGERY 06/22/2017 PREOPERATIVE DIAGNOSIS Chronic right third toe infection likely osteomyelitis hammertoe. POSTOPERATIVE DIAGNOSIS Chronic right third toe infection likely osteomyelitis hammertoe. PROCEDURE PERFORMED Right third digit amputation. COMPLICATIONS None ESTIMATED BLOOD LOSS Less than 10 mL ANESTHESIA General with local 10 cc of 0.25% Marcaine plain. SPECIMEN Micro culture taken at pathology site. Digit sent for pathological analysis. JUSTIFICATION FOR PROCEDURE This is a 61-year-old male with severe infection. Bedside debridement helped improve condition. However, concern for long-term IV antibiotics in this patient were given and the patient also has a deformity and there is likely return of the issue even if we can get the ulcer infection to heal presently. We devised a plan to move forward with eradication of the infection by amputation of the contracted virtually nonviable digit. The patient understood the risks and benefits including, but not limited to poor healing, need for more surgery at a later date. PROCEDURE IN DETAIL Under mild sedation, the patient was brought into the operating room, placed on the operating room table in the supine position. Following the induction of general anesthesia, local anesthesia was obtained about the proximal foot utilizing standard block fashion. The patient's right foot was then scrubbed, prepped, draped in the usual aseptic fashion. The foot was elevated and exsanguinated and the previously placed mid ankle tourniquet was inflated to 250 mmHg. A fishmouth type incision was made at the level of the third metatarsal phalangeal joint down to tendon and joint capsule. The digit was then passed off for pathological analysis. There was no obvious deep abscess clinically. A culture was taken at this area. Bovie and ligation of venous and arterial structures took place. The third metatarsal head appeared to be intact without any signs of clinical osteomyelitis. The wound was flushed with copious amounts of normal saline. Deep closure took place utilizing Vicryl. Skin was closed utilizing nylon. Upon relieving the tourniquet, there was a prompt hyperemic response to all digits. A bulky bandage placed. The patient transferred from OR to PACU with all vital signs stable. The patient will likely be cleared for discharge once deep culture results and 1-2 days after bandage change. YAIMA Escobar/DJL /7:35 PM /10:26 AM
--- NOTE | 2017-06-22 10:52 | HHI.PR ---
Subjective Remarks throbiing pain post op -foot- -controlled with po pain meds Objective Vitals Vital Signs Date Time Temp Pulse Resp B/P (MAP) Pulse Ox O2 Delivery O2 Flow Rate FiO2 06/22/17 08:20 99.0 93 17 136/81 (99) 95 06/22/17 04:00 95 06/22/17 04:00 98.5 91 16 139/79 (99) 96 06/22/17 00:00 82 06/22/17 00:00 98.0 90 15 140/80 (100) 96 06/21/17 20:30 96 Room Air 06/21/17 20:00 98.8 93 17 149/82 (104) 98 06/21/17 20:00 96 06/21/17 19:00 98.3 82 13 162/95 (117) 98 Room Air 06/21/17 18:45 83 16 161/94 (116) 100 Room Air 06/21/17 18:32 97.5 99 16 158/93 (114) 100 Nasal Cannula 2 06/21/17 16:20 98.6 80 17 151/87 (108) 100 06/21/17 15:24 98.4 88 16 150/82 (104) 100 06/21/17 15:03 82 06/21/17 12:06 99.0 87 18 142/81 (101) 98 I/O 06/21/17 06/21/17 06/21/17 06/22/17 06/22/17 06/22/17 07:00 15:00 23:00 07:00 15:00 23:00 Intake Total 615 ml 1000 ml 100 ml 500 ml Output Total 650 ml 1340 ml 900 ml Balance -35 ml -340 ml 100 ml -400 ml Intake Oral 400 ml 500 ml IV Total 615 ml 0 ml 100 ml Other 600 ml Output Urine Total 650 ml 1325 ml 900 ml Estimated Blood Loss 15 ml # Voids 3 # Bowel Movements 1 Result Diagram: 06/19/17 0940 06/21/17 0630 Imaging Last Impressions Foot MRI 06/18/17 0000 Signed Impressions: Service Date/Time: Sunday, June 18, 2017 14:50 - CONCLUSION: Marked soft tissue swelling across the dorsum of the foot. Marked enhancement and edema around the third toe, difficult to rule out distal osteomyelitis. Anant Sullivan MD Foot X-Ray 06/17/17 0000 Signed Impressions: Service Date/Time: Saturday, June 17, 2017 11:30 - CONCLUSION: 1. No acute fracture or joint dislocation. 2. Mild primary degenerative changes of the foot. 3. Prominent heel spur. Marcus Hernandez MD Objective Remarks awake and alert, no acute distress lungs- clear regular rhythm abdomen soft right- foot- post op dressing in place Procedures 06/21- 3rd toe/digit amputation A/P Assessment and Plan 61-year-old male with: Right foot 3rd toe amputation 06/21 for abscess with OM - Continue IV vancomycin and Zosyn - ID and Podiatry ff - ff final c and s and pathology Anemia Normocytic. Hemoglobin stable - follow CBC and transfuse as needed. History of Gram Negative Bacteremia The patient was recently treated in the hospital for an infection and completed a course of Levaquin on the of this month. Hypertension - recently discontinued hydrochlorothiazide secondary to hypokalemia and hyponatremia. - Continue lisinopril 20 mg by mouth daily and adjust as needed. - Clonidine as needed. Uncontrolled diabetes type II Recent A1c was 14%. He was not started on insulin as there was concern for noncompliance. He is on metformin and glipizide as an outpatient. - continue insulin sliding scale. - Glucose readings- 150s- 170s - restarted metformin 1 gm po bid . sliding scale insulin - Gabapentin for neuropathy. PPx: SCDs PT consult- ambulation Charity Hurtado MD Jun 22, 2017 10:52
[2017-06-22] MEDS ORDERED: VANCOMYCIN 1,500 MG/NS 500 ML IV SCH ×2 (13:00)
--- NOTE | 2017-06-22 18:46 | PD.POD ---
Subjective Pain score: 3 Remarks Doing well only mild pain Past Med/Surg/Social History Past Medical History Endocrine: REPORTS HX OF: Diabetes mellitus Genitourinary: REPORTS HX OF: Past UTI Psychiatric: REPORTS HX OF: Other psychiatric history Social History Smoking Status: Never Smoker Objective Vital Signs Vital Signs Date Time Temp Pulse Resp B/P (MAP) Pulse Ox O2 Delivery O2 Flow Rate FiO2 06/22/17 16:03 98.2 81 18 140/74 (96) 98 06/22/17 16:00 Room Air 06/22/17 12:18 98.7 90 18 149/85 (106) 99 06/22/17 12:00 Room Air 06/22/17 08:20 99.0 93 17 136/81 (99) 95 06/22/17 08:00 Room Air 06/22/17 04:00 95 06/22/17 04:00 98.5 91 16 139/79 (99) 96 06/22/17 00:00 82 06/22/17 00:00 98.0 90 15 140/80 (100) 96 06/21/17 20:30 96 Room Air 06/21/17 20:00 98.8 93 17 149/82 (104) 98 06/21/17 20:00 96 06/21/17 19:00 98.3 82 13 162/95 (117) 98 Room Air 06/21/17 18:45 83 16 161/94 (116) 100 Room Air Coded Allergies: aspirin (Unverified Allergy, Unknown, 06/17/17) Medications and IVs Administered Medications Medications (Trade) Dose Ordered Sig/Jackie Route PRN Reason Start Time Stop Time Status Last Admin Dose Admin Lisinopril (Prinivil) 20 mg DAILY PO 06/17/17 14:15 06/22/17 10:22 Gabapentin (Neurontin) 300 mg TID PO 06/17/17 18:00 06/22/17 17:52 Magnesium Oxide (Mag-Ox) 400 mg DAILY PO 06/18/17 09:00 06/22/17 10:22 Insulin Aspart (NovoLOG SUPPLEMENTAL SCALE) 1 ACHS SLIDING SCALE SQ 06/17/17 17:00 06/22/17 17:53 Sodium Chloride (NS Flush) 2 ml BID IV FLUSH 06/17/17 21:00 06/22/17 10:22 Acetaminophen/ Hydrocodone Bitart ([place] 10-325 Mg) 1 tab Q4H PRN PO PAIN SCALE 6 TO 10 06/17/17 14:15 06/22/17 17:53 Senna/Docusate Sodium (Alma Delia-Colace) 1 tab BID PO 06/17/17 21:00 06/19/17 08:48 Piperacillin Sod/ Tazobactam Sod 100 ml @ 200 mls/hr Q6H IV 06/17/17 22:00 06/22/17 16:09 Clonidine (Catapres) 0.1 mg Q6H PRN PO SBP> OR = 180, DBP> OR = 100 06/17/17 16:15 06/17/17 17:00 Metformin HCl (Glucophage) 1,000 mg BIDPC PO 06/20/17 18:00 06/22/17 17:52 Vancomycin HCl 1500 mg/Sodium Chloride 515 ml @ 257.5 mls/ hr Q12H IV 06/22/17 13:00 06/22/17 13:51 Other Results Laboratory Tests Test 06/21/17 06:30 Creatinine 0.70 MG/DL Estimat Glomerular Filtration Rate 139 ML/MIN Microbiology Date/Time Source Procedure Growth Status 06/21/17 19:56 Wound Toe Fungal Smear - Final NO FUNGAL ELEMENTS SEEN. Resulted 06/21/17 19:56 Wound Toe Fungal Culture Pending Resulted 06/21/17 19:56 Wound Foot Acid Fast Stain Pending Received 06/21/17 19:56 Wound Foot Mycobacterial Culture Pending Received 06/21/17 19:56 Wound Toe Gram Stain - Final Resulted 06/21/17 19:56 Wound Toe Wound Culture - Preliminary NO GROWTH IN 24 HOURS. Resulted Physical Exam Remarks Right third digit amputation site with minimal serosanguineous drainage no necrosis moderate edema Assessment & Plan A/P Third digit ulcer abscess status post incision and drainage left foot Status post 3rd digit amputation Betadine swab dry bandage applied please see discharge orders okay to follow up outpatient Manjinder De Oliveira DPM Jun 22, 2017 18:46
--- NOTE | 2017-06-22 19:28 | HHI.IDPN ---
Subjective Subjective Remarks is a 61 yr old AAM with PMHx significant for E.faecalis bacteremia ( transient with negative ECHO, podiatry evaluation at that time consistent with soft tissue infection, no concern for osteomyelitis). Since patient had GI symptoms and flu history as well a Colonoscopy was recommended as outpt. Patient has been non compliant with DM meds and was admitted with BS in 500s during last admission. Patient did well clinically and since bacteremia was transient he was discharged on oral levaquin and follow up with PCP Dr.Leslie Ramey. Patient now returns with swollen right 3rd toe at site of prior avulsed nail. Xray and MRI of foot concerning for osteomyelitis. Podiatry consulted and ID consulted for evaluation and Mment of toe osteomyelitis. Pertinent positives and negatives: Did not have glucometer so has not been checking sugars. Got his teeth removed and new dentures like counseled last admission. No fevers, chills or night sweats. Overnight events reviewed No fever No rash No diarrhea s/p amputation of digit. Antibiotics Zosyn IV Vanco IV Lines Line sites with no e.o infection Past Medical History Past Medical History DM DM neuropathy HTN Flu in Jun 2017 Enterococcal bacteremia in Jun 2016 Toe nail avulsion in Jun 2016. Past Surgical History Teeth removal surgery Allergies: Coded Allergies: aspirin (Unverified Allergy, Unknown, 06/17/17) Objective . Vital Signs Date Time Temp Pulse Resp B/P (MAP) Pulse Ox O2 Delivery O2 Flow Rate FiO2 06/22/17 16:03 98.2 81 18 140/74 (96) 98 06/22/17 16:00 Room Air 06/22/17 15:39 77 06/22/17 12:18 98.7 90 18 149/85 (106) 99 06/22/17 12:00 Room Air 06/22/17 08:20 99.0 93 17 136/81 (99) 95 06/22/17 08:00 Room Air 06/22/17 07:41 103 06/22/17 04:00 95 06/22/17 04:00 98.5 91 16 139/79 (99) 96 06/22/17 00:00 82 06/22/17 00:00 98.0 90 15 140/80 (100) 96 06/21/17 20:30 96 Room Air 06/21/17 20:00 98.8 93 17 149/82 (104) 98 06/21/17 20:00 96 06/22/17 06/22/17 06/23/17 15:00 23:00 07:00 Intake Total 500 ml 840 ml Output Total 900 ml 600 ml Balance -400 ml 240 ml Intake Oral 500 ml 840 ml Output Urine Total 900 ml 600 ml # Bowel Movements 1 . Laboratory Tests Test 06/21/17 06:30 Creatinine 0.70 MG/DL Estimat Glomerular Filtration Rate 139 ML/MIN Microbiology Date/Time Source Procedure Growth Status 06/21/17 19:56 Wound Toe Fungal Smear - Final NO FUNGAL ELEMENTS SEEN. Resulted 06/21/17 19:56 Wound Toe Fungal Culture Pending Resulted 06/21/17 19:56 Wound Foot Acid Fast Stain Pending Received 06/21/17 19:56 Wound Foot Mycobacterial Culture Pending Received 06/21/17 19:56 Wound Toe Gram Stain - Final Resulted 06/21/17 19:56 Wound Toe Wound Culture - Preliminary NO GROWTH IN 24 HOURS. Resulted Imaging Last Impressions Foot MRI 06/18/17 0000 Signed Impressions: Service Date/Time: Sunday, June 18, 2017 14:50 - CONCLUSION: Marked soft tissue swelling across the dorsum of the foot. Marked enhancement and edema around the third toe, difficult to rule out distal osteomyelitis. Anant Sullivan MD Foot X-Ray 06/17/17 0000 Signed Impressions: Service Date/Time: Saturday, June 17, 2017 11:30 - CONCLUSION: 1. No acute fracture or joint dislocation. 2. Mild primary degenerative changes of the foot. 3. Prominent heel spur. Marcus Hernandez MD Physical Exam GENERAL: Obese, well-developed patient, in no apparent distress. SKIN: No rashes, ecchymoses or lesions. Cool and dry. HEAD: Atraumatic. Normocephalic. No temporal or scalp tenderness. EYES: Pupils equal round and reactive. Extraocular motions intact. No scleral icterus. No injection or drainage. ENT: Nose without bleeding, purulent drainage or septal hematoma. Throat without erythema, tonsillar hypertrophy or exudate. Uvula midline. Airway patent. NECK: Trachea midline. Supple, nontender, no meningeal signs. CARDIOVASCULAR: HS audible. RESPIRATORY: Clear to auscultation. Breath sounds equal bilaterally. No wheezes , rales, or rhonchi. GASTROINTESTINAL: Abdomen soft, non-tender, nondistended. Obese. MUSCULOSKELETAL: Right foot in post op dressing. NEUROLOGICAL: Awake and alert. Non focal exam Psych cooperative IV line sites with no e.o infection. Assessment & Plan Remarks Right 3rd toe osteomyelitis Right foot cellulitis. DM with DM neuropathy h/o Enterococcal bacteremia (ECHO in Jun 2016 negative for vegetations and repeat blood cultures are negative this admission) Non compliance Recs: DC Zosyn IV DC Vanco IV (target trough 15-20) At this this time superficial wound cultures can be negative as patient recd oral levaquin a week or so back. Follow cultures Follow clinically. Follow path will help decide IV vs oral. I will be off 06/23/2017 to 06/25/2017. Other ID MDs covering for me. Please check with [facility] call center. Charlene Jung MD Jun 22, 2017 19:28
[2017-06-23] VITALS (9 sets, daily range): BP systolic 130–160; BP diastolic 74–95; PULSE 83–98; RESP 14–20; TEMP 97.6–98.7; O2SAT 96–100
[2017-06-23] MEDS: ACETAMINOPHEN/HYDROcodone 325 MG/10 MG TAB PO PRN ×2 (05:36→19:00)
[2017-06-23] MEDS: PIPERACIL-TAZO 4.5 GM PREMIX 100 ML IV SCH ×2 (05:36→09:17)
[2017-06-23 07:37] LABS: CREATININE 0.66 MG/DL (0.60-1.30)
[2017-06-23] MEDS: INSULIN ASPART SUPPLEMENTAL SCALE SQ SCH ×4 (08:00→20:46)
[2017-06-23] MEDS: DOCUSATE SODIUM 50 MG/SENNA 8.6 MG TAB PO SCH ×2 (09:00→20:46)
[2017-06-23] MEDS: LISINOPRIL 20 MG TAB PO SCH (09:17)
[2017-06-23] MEDS: GABAPENTIN 300 MG CAP PO SCH ×3 (09:18→19:00)
[2017-06-23] MEDS: metFORMIN HCL 500 MG TAB PO SCH ×2 (09:18→18:00)
[2017-06-23] MEDS: SODIUM CHLORIDE 0.9% FLUSH 10 ML FLUSH IV FLUSH SCH ×2 (09:18→20:45)
[2017-06-23] MEDS: MAGNESIUM OXIDE 400 MG TAB PO SCH (09:18)
--- NOTE | 2017-06-23 13:46 | HHI.PR ---
Subjective Remarks no complains seen with at bedside went over glucose readings ambualted with a walker Objective Vitals Vital Signs Date Time Temp Pulse Resp B/P (MAP) Pulse Ox O2 Delivery O2 Flow Rate FiO2 06/23/17 12:00 97.6 89 18 130/77 (94) 99 06/23/17 08:00 98.7 90 14 155/74 (101) 96 06/23/17 07:47 87 06/23/17 04:00 88 06/23/17 04:00 98.5 86 20 160/95 (116) 100 06/23/17 00:00 83 06/23/17 00:00 98.4 85 18 143/88 (106) 100 06/22/17 20:00 98.3 80 18 131/83 (99) 100 06/22/17 20:00 85 06/22/17 16:03 98.2 81 18 140/74 (96) 98 06/22/17 16:00 Room Air 06/22/17 15:39 77 I/O 06/22/17 06/22/17 06/22/17 06/23/17 06/23/17 06/23/17 07:00 15:00 23:00 07:00 15:00 23:00 Intake Total 100 ml 500 ml 840 ml 400 ml Output Total 900 ml 600 ml 1050 ml Balance 100 ml -400 ml 240 ml -650 ml Intake Oral 500 ml 840 ml 400 ml IV Total 100 ml Output Urine Total 900 ml 600 ml 1050 ml # Bowel Movements 1 0 Result Diagram: 06/19/17 0940 06/23/17 0626 Imaging Last Impressions Foot MRI 06/18/17 0000 Signed Impressions: Service Date/Time: Sunday, June 18, 2017 14:50 - CONCLUSION: Marked soft tissue swelling across the dorsum of the foot. Marked enhancement and edema around the third toe, difficult to rule out distal osteomyelitis. Anant Sullivan MD Foot X-Ray 06/17/17 0000 Signed Impressions: Service Date/Time: Saturday, June 17, 2017 11:30 - CONCLUSION: 1. No acute fracture or joint dislocation. 2. Mild primary degenerative changes of the foot. 3. Prominent heel spur. Marcus Hernandez MD Objective Remarks awake and alert, no acute distress lungs- clear regular rhythm abdomen soft right- foot- post op site- dry, no erythema, sutures in place, Procedures 06/21- 3rd toe/digit amputation A/P Assessment and Plan 61-year-old male with: Right foot 3rd toe amputation 06/21 for abscess with OM - Vanco DC 06/22. DC Zosyn as per ID notes - ID and Podiatry ff - patient received 7 days course of Vanco and zosyn - ff final c and s and pathology- pending Anemia Normocytic. Hemoglobin stable - follow CBC and transfuse as needed. History of Gram Negative Bacteremia The patient was recently treated in the hospital for an infection and completed a course of Levaquin on the of this month. Hypertension - recently discontinued hydrochlorothiazide secondary to hypokalemia and hyponatremia. - Continue lisinopril 20 mg by mouth daily and adjust as needed. - Clonidine as needed. Uncontrolled diabetes type II Recent A1c was 14%. He was not started on insulin as there was concern for noncompliance. He is on metformin and glipizide as an outpatient. - continue insulin sliding scale. - Glucose readings- less than 200 - restarted metformin 1 gm po bid . sliding scale insulin - Gabapentin for neuropathy. PPx: SCDs PT consult- ambulation Charity Hurtado MD Jun 23, 2017 13:46
--- NOTE | 2017-06-23 13:57 | HHI.FF ---
Face to Face Verification Diagnosis: (1) Osteomyelitis (2) Toe infection (3) Type 2 diabetes mellitus with peripheral neuropathy Home Health Nursing Order: Medical education Signs/symptoms of disease process Diabetic education Wound care and dressing changes Nursing assessment with vital signs Supervisor Production Managing Order: To Evaluate: Living conditions/environment, Support services Order: To Provide: Community services I have seen patient James Lakhani on 06/23/17. My clinical findings support the need for the requested home health care services because: Ltd mobility - disease progression Need for psychosocial assistance Infection w/ risk of complications I certify that my clinical findings support that this patient is homebound because: Need for psychosocial assistance Charity Hurtado MD Jun 23, 2017 13:56
[2017-06-23] MEDS ORDERED: Vancomycin Consult Pharmacy 1 EA OTHER SCH (16:00)
[2017-06-23] MEDS: VANCOMYCIN 1,500 MG/NS 500 ML IV SCH ×2 (19:01)
--- NOTE | 2017-06-23 22:11 | HHI.IDPN ---
Subjective Subjective Remarks ID X cover for Dr Jung chart reviewed is a 61 yr old AAM with PMHx significant for E.faecalis bacteremia ( transient with negative ECHO, podiatry evaluation at that time consistent with soft tissue infection, no concern for osteomyelitis). Since patient had GI symptoms and flu history as well a Colonoscopy was recommended as outpt. Patient has been non compliant with DM meds and was admitted with BS in 500s during last admission. Patient did well clinically and since bacteremia was transient he was discharged on oral levaquin and follow up with PCP Dr.Leslie Ramey. Patient now returns with swollen right 3rd toe at site of prior avulsed nail. Xray and MRI of foot concerning for osteomyelitis. Podiatry consulted and ID consulted for evaluation and Mment of toe osteomyelitis. path P ESR > 140 clx growing staph spp (1 CFU) No fever No rash No diarrhea s/p amputation of digit. Antibiotics none Lines Line sites with no e.o infection Past Medical History Past Medical History DM DM neuropathy HTN Flu in Jun 2017 Enterococcal bacteremia in Jun 2016 Toe nail avulsion in Jun 2016. Past Surgical History Teeth removal surgery Allergies: Coded Allergies: aspirin (Unverified Allergy, Unknown, 06/17/17) Objective . Vital Signs Date Time Temp Pulse Resp B/P (MAP) Pulse Ox O2 Delivery O2 Flow Rate FiO2 06/23/17 16:00 98.4 98 18 142/79 (100) 99 06/23/17 16:00 Room Air 06/23/17 15:59 86 06/23/17 12:01 84 06/23/17 12:00 Room Air 06/23/17 12:00 97.6 89 18 130/77 (94) 99 06/23/17 08:00 Room Air 06/23/17 08:00 98.7 90 14 155/74 (101) 96 06/23/17 07:47 87 06/23/17 04:00 88 06/23/17 04:00 98.5 86 20 160/95 (116) 100 06/23/17 00:00 83 06/23/17 00:00 98.4 85 18 143/88 (106) 100 06/23/17 06/23/17 06/24/17 15:00 23:00 07:00 Intake Total 480 ml Balance 480 ml Intake Oral 480 ml # Voids 4 . Laboratory Tests Test 06/23/17 06:26 Creatinine 0.66 MG/DL Estimat Glomerular Filtration Rate 149 ML/MIN Microbiology Date/Time Source Procedure Growth Status 06/21/17 19:56 Wound Toe Fungal Smear - Final NO FUNGAL ELEMENTS SEEN. Resulted 06/21/17 19:56 Wound Toe Fungal Culture Pending Resulted 06/21/17 19:56 Wound Foot Acid Fast Stain - Final NO ACID FAST BACILLI SEEN Resulted 06/21/17 19:56 Wound Foot Mycobacterial Culture Pending Resulted 06/21/17 19:56 Wound Toe Gram Stain - Final Resulted 06/21/17 19:56 Wound Culture - Preliminary Staphylococcus Species Resulted Imaging Last Impressions Foot MRI 06/18/17 0000 Signed Impressions: Service Date/Time: Sunday, June 18, 2017 14:50 - CONCLUSION: Marked soft tissue swelling across the dorsum of the foot. Marked enhancement and edema around the third toe, difficult to rule out distal osteomyelitis. Anant Sullivan MD Foot X-Ray 06/17/17 0000 Signed Impressions: Service Date/Time: Saturday, June 17, 2017 11:30 - CONCLUSION: 1. No acute fracture or joint dislocation. 2. Mild primary degenerative changes of the foot. 3. Prominent heel spur. Marcus Hernandez MD Physical Exam GENERAL: Obese, well-developed patient, in no apparent distress. SKIN: No rashes, ecchymoses or lesions. Cool and dry. HEAD: Atraumatic. Normocephalic. No temporal or scalp tenderness. EYES: Pupils equal round and reactive. Extraocular motions intact. No scleral icterus. No injection or drainage. ENT: Nose without bleeding, purulent drainage or septal hematoma. Throat without erythema, tonsillar hypertrophy or exudate. Uvula midline. Airway patent. NECK: Trachea midline. Supple, nontender, no meningeal signs. CARDIOVASCULAR: HS audible. RESPIRATORY: Clear to auscultation. Breath sounds equal bilaterally. No wheezes , rales, or rhonchi. GASTROINTESTINAL: Abdomen soft, non-tender, nondistended. Obese. MUSCULOSKELETAL: Right foot with edema, no erythema, well approximated incision margins of the toe amputaion site NEUROLOGICAL: Awake and alert. Non focal exam Psych cooperative IV line sites with no e.o infection. Assessment & Plan Remarks Right 3rd toe osteomyelitis growing staphh spp Right foot cellulitis. DM with DM neuropathy h/o Enterococcal bacteremia (ECHO in Jun 2016 negative for vegetations and repeat blood cultures are negative this admission) Non compliance Recs: restart Vanco IV (target trough 15-20) Follow cultures Follow clinically. Follow path dw Araceli Warner MD Jun 23, 2017 22:11
[2017-06-24] VITALS: BP_SYST 138; BP_SYST 148; BP_DIAS 77; BP_DIAS 83; PULSE 84; PULSE 97; RESP 18; TEMP 98.4; TEMP 99.1; O2SAT 96; O2SAT 98
[2017-06-24] MEDS ORDERED: PHARMACY ORDERED LAB ONE (00:45)
[2017-06-24 04:00] VITALS: BP 150/84; PULSE 86; PULSE 89; RESP 18; TEMP 98.4; O2SAT 95
[2017-06-24] MEDS: VANCOMYCIN 1,500 MG/NS 500 ML IV SCH ×2 (05:31)
[2017-06-24 08:00] VITALS: BP 155/90; PULSE 78; PULSE 83; RESP 22; TEMP 98.2; O2SAT 99
[2017-06-24] MEDS: INSULIN ASPART SUPPLEMENTAL SCALE SQ SCH ×2 (08:00→13:42)
[2017-06-24] MEDS: metFORMIN HCL 500 MG TAB PO SCH (09:12)
[2017-06-24] MEDS: LISINOPRIL 20 MG TAB PO SCH (09:12)
[2017-06-24] MEDS: DOCUSATE SODIUM 50 MG/SENNA 8.6 MG TAB PO SCH (09:12)
[2017-06-24] MEDS: GABAPENTIN 300 MG CAP PO SCH ×2 (09:12→13:42)
[2017-06-24] MEDS: SODIUM CHLORIDE 0.9% FLUSH 10 ML FLUSH IV FLUSH SCH (09:13)
[2017-06-24] MEDS: MAGNESIUM OXIDE 400 MG TAB PO SCH (09:13)
--- NOTE | 2017-06-24 11:36 | HHI.PR ---
Subjective Remarks non complains of foot pain no shortness of breath went over readings with him Objective Vitals Vital Signs Date Time Temp Pulse Resp B/P (MAP) Pulse Ox O2 Delivery O2 Flow Rate FiO2 06/24/17 08:00 98.2 83 22 155/90 (111) 99 06/24/17 04:00 98.4 86 18 150/84 (106) 95 06/24/17 04:00 89 06/24/17 00:00 98.4 84 18 138/77 (97) 98 06/24/17 00:00 84 06/24/17 00:00 99.1 97 18 148/83 (104) 96 06/23/17 20:00 87 06/23/17 20:00 Room Air 06/23/17 16:00 98.4 98 18 142/79 (100) 99 06/23/17 16:00 Room Air 06/23/17 15:59 86 06/23/17 12:01 84 06/23/17 12:00 Room Air 06/23/17 12:00 97.6 89 18 130/77 (94) 99 I/O 06/23/17 06/23/17 06/23/17 06/24/17 06/24/17 06/24/17 07:00 15:00 23:00 07:00 15:00 23:00 Intake Total 400 ml 480 ml 600 ml Output Total 1050 ml 700 ml 1050 ml Balance -650 ml -220 ml -450 ml Intake Oral 400 ml 480 ml 600 ml Output Urine Total 1050 ml 700 ml 1050 ml # Voids 4 # Bowel Movements 0 0 Result Diagram: 06/23/17 0626 Imaging Last Impressions Foot MRI 06/18/17 0000 Signed Impressions: Service Date/Time: Sunday, June 18, 2017 14:50 - CONCLUSION: Marked soft tissue swelling across the dorsum of the foot. Marked enhancement and edema around the third toe, difficult to rule out distal osteomyelitis. Anant Sullivan MD Foot X-Ray 06/17/17 0000 Signed Impressions: Service Date/Time: Saturday, June 17, 2017 11:30 - CONCLUSION: 1. No acute fracture or joint dislocation. 2. Mild primary degenerative changes of the foot. 3. Prominent heel spur. Marcus Hernandez MD Objective Remarks awake and alert, no acute distress lungs- clear regular rhythm abdomen soft right- foot- post op site- dry, no erythema, sutures in place, Procedures 06/21- 3rd toe/digit amputation A/P Assessment and Plan 61-year-old male with: Right foot 3rd toe amputation 06/21 for abscess with OM - Vanco DC 06/22. DC Zosyn as per ID notes - ID and Podiatry ff - patient received 7 days course of Vanco and zosyn - patho- no OM - d/w Dr. Worthy- need for further antibiotics- po- Levaquin 750 mg po daily x 2 weeks Anemia Normocytic. Hemoglobin stable History of Gram Negative Bacteremia The patient was recently treated in the hospital for an infection and completed a course of Levaquin on the of this month. Hypertension - recently discontinued hydrochlorothiazide secondary to hypokalemia and hyponatremia. - Continue lisinopril 20 mg by mouth daily and adjust as needed. - Clonidine as needed. Uncontrolled diabetes type II Recent A1c was 14%. He was not started on insulin as there was concern for noncompliance. He is on metformin and glipizide as an outpatient. - continue insulin sliding scale. - Glucose readings- better readings - restarted metformin 1 gm po bid . sliding scale insulin - Gabapentin for neuropathy. PPx: SCDs PT consult- ambulation HOme today with home health care nursing if arranged Charity Hurtado MD Jun 24, 2017 11:36
[2017-06-24] MEDS ORDERED: LISI-515 PO (11:42)
[2017-06-24] MEDS ORDERED: METF500 PO (11:42)
[2017-06-24 12:00] VITALS: BP 151/79; PULSE 93; RESP 22; TEMP 98.4; O2SAT 99
[2017-06-24] MEDS: ACETAMINOPHEN/HYDROcodone 325 MG/10 MG TAB PO PRN (13:42)
--- NOTE | 2017-06-24 13:57 | HHI.IDPN ---
Subjective Subjective Remarks ID X cover for Dr Jung path P ESR > 140 clx showing nl skin adelfo Path negative for osteo No fever No rash No diarrhea s/p amputation of digit. Antibiotics vanco Lines Line sites with no e.o infection Past Medical History Past Medical History DM DM neuropathy HTN Flu in Jun 2017 Enterococcal bacteremia in Jun 2016 Toe nail avulsion in Jun 2016. Past Surgical History Teeth removal surgery Allergies: Coded Allergies: aspirin (Unverified Allergy, Unknown, 06/17/17) Objective . Vital Signs Date Time Temp Pulse Resp B/P (MAP) Pulse Ox O2 Delivery O2 Flow Rate FiO2 06/24/17 12:00 98.4 93 22 151/79 (103) 99 06/24/17 08:00 98.2 83 22 155/90 (111) 99 06/24/17 04:00 98.4 86 18 150/84 (106) 95 06/24/17 04:00 89 06/24/17 00:00 98.4 84 18 138/77 (97) 98 06/24/17 00:00 84 06/24/17 00:00 99.1 97 18 148/83 (104) 96 06/23/17 20:00 87 06/23/17 20:00 Room Air 06/23/17 16:00 98.4 98 18 142/79 (100) 99 06/23/17 16:00 Room Air 06/23/17 15:59 86 . Laboratory Tests Test 06/23/17 06:26 Creatinine 0.66 MG/DL Estimat Glomerular Filtration Rate 149 ML/MIN Microbiology Date/Time Source Procedure Growth Status 06/21/17 19:56 Wound Toe Fungal Smear - Final NO FUNGAL ELEMENTS SEEN. Resulted 06/21/17 19:56 Wound Toe Fungal Culture Pending Resulted 06/21/17 19:56 Wound Foot Acid Fast Stain - Final NO ACID FAST BACILLI SEEN Resulted 06/21/17 19:56 Wound Foot Mycobacterial Culture Pending Resulted 06/21/17 19:56 Wound Toe Gram Stain - Final Complete 06/21/17 19:56 Wound Toe Wound Culture - Final Complete Imaging Last Impressions Foot MRI 06/18/17 0000 Signed Impressions: Service Date/Time: Sunday, June 18, 2017 14:50 - CONCLUSION: Marked soft tissue swelling across the dorsum of the foot. Marked enhancement and edema around the third toe, difficult to rule out distal osteomyelitis. Anant Sullivan MD Foot X-Ray 06/17/17 0000 Signed Impressions: Service Date/Time: Saturday, June 17, 2017 11:30 - CONCLUSION: 1. No acute fracture or joint dislocation. 2. Mild primary degenerative changes of the foot. 3. Prominent heel spur. Marcus Hernandez MD Physical Exam GENERAL: Obese, well-developed patient, in no apparent distress. SKIN: No rashes, ecchymoses or lesions. Cool and dry. RESPIRATORY: unlaboured resp'ns GASTROINTESTINAL: Abdomen soft, non-tender, nondistended. Obese. MUSCULOSKELETAL: Right foot with edema, no erythema, toe ampurtation wite with some drainage and mild sepatations on the margins + serosag d/c present NEUROLOGICAL: Awake and alert. Non focal exam Psych cooperative IV line sites with no e.o infection. Assessment & Plan Remarks Right 3rd toe osteomyelitis growing staphh spp Right foot cellulitis. DM with DM neuropathy h/o Enterococcal bacteremia (ECHO in Jun 2016 negative for vegetations and repeat blood cultures are negative this admission) Non compliance Recs: cont Vanco IV (target trough 15-20) Anticipate d/c on oral abx following Dr De Oliveira visit : Levaquin 750 mg po x 2 weeks, f/u with poditrist; if shows signs of ongoing infx will need to be converted to IV abx dw Juan J Plummer Dr to see pt later today and call me back Araceli Jung MD Jun 24, 2017 13:57
[2017-06-24] MEDS ORDERED: LEVA750T9 PO (14:56)
[2017-06-24] MEDS ORDERED: LEVOFLOXACIN 750 MG TAB PO SCH (15:00)
--- NOTE | 2017-06-24 19:06 | HHI.DS ---
Discharge Summary Admission Date Jun 17, 2017 at 13:52 Discharge Date: Jun 24, 2017 Admitting Diagnosis acute right 3rd toe infection, osteomyelitis (1) s/p [id number] toe Diagnosis: Principal (2) Osteomyelitis ICD Code: M86.9 - Osteomyelitis, unspecified Diagnosis: Principal Status: Acute (3) Type 2 diabetes mellitus with peripheral neuropathy ICD Code: E11.42 - Type 2 diabetes mellitus with diabetic polyneuropathy Diagnosis: Secondary Status: Chronic (4) Hypertension ICD Code: I10 - Essential (primary) hypertension Diagnosis: Secondary Procedures 06/21- 3rd toe/digit amputation Brief History - From Admission The patient is a 61-year-old male with past medical history of diabetes and hypertension who was recently discharged from the hospital who is presenting to the hospital with a swollen toe. The patient said that everything was going well but this morning he noticed his right middle toe was very swollen. He denied any pain in the area. He says he has been able to ambulate with it. He denies any fevers. 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 He decided to come to the hospital as he is a diabetic and did not want to take any chances. The patient says that he got his teeth pulled on and required his dentures yesterday. He said he is still on antibiotics for that. He has not been able to check his blood sugar at home recently because he needed a new machine. Discussed with nursing at the bedside. CBC/BMP: 06/23/17 0626 Significant Findings Laboratory Tests Test 06/22/17 00:45 06/23/17 06:26 Vancomycin Level Trough 10.5 MCG/ML (5.0-10.0) Imaging Last Impressions Foot MRI 06/18/17 0000 Signed Impressions: Service Date/Time: Sunday, June 18, 2017 14:50 - CONCLUSION: Marked soft tissue swelling across the dorsum of the foot. Marked enhancement and edema around the third toe, difficult to rule out distal osteomyelitis. Anant Sullivan MD Foot X-Ray 06/17/17 0000 Signed Impressions: Service Date/Time: Saturday, June 17, 2017 11:30 - CONCLUSION: 1. No acute fracture or joint dislocation. 2. Mild primary degenerative changes of the foot. 3. Prominent heel spur. Marcus Hernandez MD PE at Discharge awake and alert, no acute distress lungs- clear regular rhythm abdomen soft right- foot- post op site- dry, no erythema, sutures in place, Pt update on day of discharge afebrile no pain good vital signs Hospital Course 61-year-old male with: Right foot 3rd toe amputation 06/21 for abscess with OM - Vanco DC 06/22. DC Zosyn as per ID notes - ID and Podiatry ff - patient received 7 days course of Vanco and zosyn - patho- no OM - d/w Dr. Worthy- need for further antibiotics- po- Levaquin 750 mg po daily x 2 weeks Anemia Normocytic. Hemoglobin stable History of Gram Negative Bacteremia The patient was recently treated in the hospital for an infection and completed a course of Levaquin on the of this month. Hypertension - recently discontinued hydrochlorothiazide secondary to hypokalemia and hyponatremia. - Continue lisinopril 20 mg by mouth daily and adjust as needed. - Clonidine as needed. Uncontrolled diabetes type II Recent A1c was 14%. He was not started on insulin as there was concern for noncompliance. He is on metformin and glipizide as an outpatient. - continue insulin sliding scale. - Glucose readings- better readings - restarted metformin 1 gm po bid . sliding scale insulin - Gabapentin for neuropathy. PPx: SCDs PT consult- ambulation HOme today with home health care nursing if arranged Pt Condition on Discharge: Stable Discharge Disposition: Discharge Home Discharge Time: > 30 minutes Discharge Instructions DIET: Follow Instructions for: Heart Healthy Diet, Diabetic Diet Speech Therapy-Diet Recommends: Regular Activities you can perform: Weight Bearing as [place] Follow up Referrals: PCP Follow-up - 06/27/17 with PCP Podiatry - 06/26/17 with Manjinder De Oliveira DPM New Medications: Levofloxacin (Levaquin) 750 Mg Tablet 750 MG PO DAILY for footinf for 13 Days, #13 TAB Lisinopril (Lisinopril) 20 Mg Tab 20 MG PO DAILY for HTN for 30 Days, #30 TAB Metformin (Glucophage) 500 Mg Tab 1000 MG PO BIDPC for DM for 30 Days, TAB Continued Medications: Gabapentin (Neurontin) 300 Mg Cap 300 MG PO HS, #30 CAP 0 Refills Hydrocodone-Acetaminophen (Starr) 7.5-325 mg Tab 1 TAB PO Q4-6H PRN for PAIN, TAB 0 Refills Magnesium Oxide (Magnesium Oxide) 400 Mg Tab 400 MG PO DAILY for Nutritional Supplement, #30 TAB 0 Refills Discontinued Medications: Amoxicillin (Amoxicillin) 500 Mg Cap 500 MG PO Q6HR for Infection, CAP 0 Refills Until Finished Glipizide (Glipizide) 5 Mg Tab 5 MG PO DAILY for Blood Sugar Management, #30 TAB 0 Refills Take 30 minutes before a meal Hydrochlorothiazide (Hydrochlorothiazide) 12.5 Mg Cap 12.5 MG PO DAILY, #30 CAP 0 Refills Lisinopril (Lisinopril) 10 Mg Tab 10 MG PO DAILY, #30 TAB 0 Refills Naproxen (Naproxen) 500 Mg Tab 500 MG PO BID, TAB 0 Refills Charity Hurtado MD Jun 24, 2017 19:06
[2017-06-25] MEDS ORDERED: PHARMACY ORDERED LAB ONE (05:45)
== END 2017-06-24 16:05 | disposition home or self-care (01) | DRG 617 ==
LOC: NEPE 10:15 → NEDA 13:52 → N04B 14:55
PROVIDERS: ADMIT Internal Medicine; ATTEND Internal Medicine
PROC: 0HBMXZZ Excision of Right Foot Skin, External Approach (ICD-10-PCS; 2017-06-18)
PROC: 0H9MXZX Drainage of Right Foot Skin, External Approach, Diagnostic (ICD-10-PCS; 2017-06-18)
PROC: 0HBRXZZ Excision of Toe Nail, External Approach (ICD-10-PCS; 2017-06-19)
PROC: 0HBRXZZ Excision of Toe Nail, External Approach (ICD-10-PCS; 2017-06-19)
PROC: 3E0T3BZ Introduction of Anesthetic Agent into Peripheral Nerves and Plexi, Percutaneous Approach (ICD-10-PCS; 2017-06-21)
PROC: 0Y6T0Z0 Detachment at Right 3rd Toe, Complete, Open Approach (ICD-10-PCS; principal; 2017-06-21 17:45)
DX: E11.69 Type 2 diabetes mellitus with other specified complication (principal); E87.1 Hypo-osmolality and hyponatremia; E11.65 Type 2 diabetes mellitus with hyperglycemia; M86.9 Osteomyelitis, unspecified; L03.115 Cellulitis of right lower limb; I10 Essential (primary) hypertension; L02.611 Cutaneous abscess of right foot; E11.42 Type 2 diabetes mellitus with diabetic polyneuropathy; E11.621 Type 2 diabetes mellitus with foot ulcer; D64.9 Anemia, unspecified; B35.1 Tinea unguium; E87.6 Hypokalemia; E83.42 Hypomagnesemia; L97.529 Non-pressure chronic ulcer of other part of left foot with unspecified severity; L97.519 Non-pressure chronic ulcer of other part of right foot with unspecified severity; M20.41 Other hammer toe(s) (acquired), right foot; Z79.84 Long term (current) use of oral hypoglycemic drugs; Z88.6 Allergy status to analgesic agent; Z91.14 Patient's other noncompliance with medication regimen
CPT/HCPCS: 73630; 73720; 76937; 80048; 80202; 82565; 82607; 82728; 82746; 82948; 83540; 83550; 83735; 85025; 85027; 85652; 86140; 86403; 87015; 87040; 87070; 87102; 87116; 87205; 87206; 88305; 88311; 96361; 96374; 96375; A9579; J1815; J2405; J2543; J3010; J3370; J3475; J7030; J7040; J7050; L3260